=== PATIENT | female | born 1955 | race Caucasian/White ===

== ENCOUNTER 2019-03-27 09:06 | Inpatient (IN) | payer BC ==
--- NOTE | 2019-03-27 11:04 | ED ---
Complex/Multi-Sys Presentation - HPI Summary HPI Summary: This pt is a 63 y/o female, accompanied by , with hx of DM presenting to [facility] c/o cough and SOB for the past 1 week and high glucose levels. Pt reports she has been having SOB, labored breathing, unable to take a deep breath. She notes SOB is at all times and it is not worse when lying down. Per , even when pt is sleeping her breathing is labored. Pt describes a nonproductive cough, nonbloody. Additionally pt notes she has had loss of appetite. Per , many times even after eating small amounts of food pt c/o of being too full. Pt reports hematuria 3 days ago and 2 days ago described as blood tinged, but none since then. Also she notes she diarrhea during the beginning of the week last week but none since then. Pt endorses diaphoresis but states " I sweat a lot all the time." Denies fever, chills, chest pain/pressure/tightness/ myalgia, dysuria. Denies erythema of eyes, sore throat, nausea, vomiting, abd pain, edema, rash. Pt reports she has hx of DM and is on pills but has not taken her medications for almost 1 week because she had nausea. This morning her sugar was 260. Pt reports losing weight recently but she states she has been trying to and has been going to the gym. She states she recently stopped taking Tylenol with codeine (which she had been taking for over 5 years for headache and back pain, and painful wound on left leg). She can't take naproxen or ibuprofen due to her kidney and high potassium problems. PMHx includes DM, Polycythemia vera, HTN. Pt follows up with Dr. Griggs and is on hydroxyurea. Pt states Dr. Castellanos discontinued hydroxyurea temporarily until her wound on left leg can heal. Pt has been off hydroxyurea for 2 weeks now. Pt is a former smoker. - History Of Current Complaint Chief Complaint: EDGeneral Time Seen by Provider: 03/27/19 10:43 Hx Obtained From: Patient Onset/Duration: Lasting Days, Still Present Timing: Days Severity Currently: Moderate Aggravating Factor(s): nothing Alleviating Factor(s): nothing Associated Signs And Symptoms: Positive: SOB, Cough. Negative: Chest Pain, Nausea, Vomiting, Fever - Allergies/Home Medications Allergies/Adverse Reactions: Allergies Allergy/AdvReac Type Severity Reaction Status Date / Time Sulfa (Sulfonamide Allergy Rash And Verified 03/27/19 09:15 Antibiotics) Itching Home Medications: Home Medications Acetaminophen with Codeine [Acetaminophen-Cod #3 Tablet] 1 - 2 tab PO .Q4-6H PRN 03/27/19 [History Confirmed 03/27/19] Desipramine TAB* [Norpramin TAB*] 50 mg PO BEDTIME 03/27/19 [History Confirmed 03/27/19] Milk Thistle Seed Extract [Milk Thistle] 140 mg PO DAILY 03/27/19 [History Confirmed 03/27/19] Mupirocin 2% OINT* [Bactroban 2 % Oint*] 1 applic TOPICAL TID 03/27/19 [History Confirmed 03/27/19] Pioglitazone HCl 45 mg PO DAILY 03/27/19 [History Confirmed 03/27/19] glipiZIDE TAB* [Glucotrol TAB*] 10 mg PO BID 03/27/19 [History Confirmed ] PMH/Surg Hx/FS Hx/Imm Hx Endocrine/Hematology History: Reports: Hx Bone Marrow Disease - Polycythemia Vera, Hx Diabetes - po meds, Hx Anemia - on iron Denies: Hx Thyroid Disease Cardiovascular History: Reports: Hx Hypertension - ON MEDS Denies: Hx Angina, Hx Coronary Artery Disease, Hx Hypercholesterolemia, Hx Pacemaker/ICD, Hx Valvular Heart Disease Comment Only: Hx Myocardial Infarction - ? 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 Denies: Hx Ulcer History: Denies: Hx Renal Disease Musculoskeletal History: Reports: Hx Arthritis - back and hands Denies: Hx Scoliosis Sensory History: Reports: Hx Contacts or Glasses - glasses Denies: Hx Hearing Aid Opthamlomology History: Reports: Hx Contacts or Glasses - glasses Neurological History: Reports: Hx Nerve Disease - spine, Other Neuro Impairments /Disorders - fx skull at 2 yrs of age Denies: Hx Headaches Psychiatric History: Reports: Hx Depression - on med Denies: Hx Panic Disorder - Cancer History Hx Chemotherapy: No Hx Radiation Therapy: No - Surgical History Surgical History: Yes Surgery Procedure, Year, and Place: Tonsilectomy. tubal ligation. anterior cervical discectomy w/ fusion. Carpal tunnel (Right). LSP - DISCECTOMY 02/02 Hx Anesthesia Reactions: No Infectious Disease History: No Infectious Disease History: Denies: Hx Clostridium Difficile, Hx Hepatitis, Hx Human Immunodeficiency Virus (HIV), Hx of Known/Suspected MRSA, Hx Shingles, Hx Tuberculosis, Hx Known/ Suspected VRE, Hx Known/Suspected VRSA, History Other Infectious Disease, Traveled Outside the [place] in Last 30 Days - Family History Known Family History: Positive: Hypertension Family History: Lupus. Rheumatoid arthritis. - Social History Alcohol Use: None Substance Use Type: Reports: None Smoking Status (MU): Former Smoker Type: Cigarettes Amount Used/How Often: smoked for 12-13 years 1ppd Have You Smoked in the Last Year: No Review of Systems Constitutional: Other - POSITIVE: decreased appetite Positive: Skin Diaphoresis. Negative: Fever, Chills Negative: Erythema Negative: Sore Throat Negative: Chest Pain Positive: Shortness Of Breath, Cough Negative: Abdominal Pain, Vomiting, Nausea Negative: dysuria, hematuria Negative: Myalgia, Edema Negative: Rash Neurological: Other - NEGATIVE: dizziness All Other Systems Reviewed And Are Negative: Yes Physical Exam - Summary Physical Exam Summary: Constitutional: Well-developed, Well-nourished, Alert. (-) Distressed Skin: Warm, Dry. Quarter size wound on the left lateral lower leg that appears to be well healing, no drainage, no erythema, no induration. HENT: Normocephalic; Atraumatic Eyes: Conjunctiva normal Neck: Musculoskeletal ROM normal neck. (-) JVD, (-) Stridor, (-) Tracheal deviation Cardio: Rhythm regular, rate normal, Heart sounds normal; Intact distal pulses; The pedal pulses are 2+ and symmetric. Radial pulses are 2+ and symmetric. (-) Murmur Pulmonary/Chest wall: Effort normal. (-) Respiratory distress, (-) Wheezes, (-) Rales. Patient coughs a few times during the exam. Abd: Soft, (-) tenderness, (-) Distension, (-) Guarding, (-) Rebound Musculoskeletal: (-) Edema Lymph: (-) Cervical adenopathy Neuro: Alert, Oriented x3 Psych: Mood and affect Normal Triage Information Reviewed: Yes Vital Signs On Initial Exam: Initial Vitals Temp Pulse Resp BP Pulse Ox 98.3 F 114 20 151/74 94 03/27/19 09:11 03/27/19 09:11 03/27/19 09:11 03/27/19 09:11 03/27/19 09:11 Vital Signs Reviewed: Yes Procedures - Sedation Patient Received Moderate/Deep Sedation with Procedure: No Diagnostics - Vital Signs Vital Signs Temp Pulse Resp BP Pulse Ox 03/27/19 09:11 98.3 F 114 20 151/74 94 - Laboratory Lab Results: Lab Results 03/27/19 Range/Units 10:50 Influenza A (Rapid) Pending Influenza B (Rapid) Pending Result Diagrams: 03/27/19 10:55 03/27/19 10:55 Lab Statement: Any lab studies that have been ordered have been reviewed, and results considered in the medical decision making process. - Radiology chest XR Radiology Interpretation Completed By: Radiologist Summary of Radiographic Findings: IMPRESSION: Small bilateral pleural effusions. Dr. Love has reviewed this report. - CT Chest CTA CT Interpretation Completed By: Radiologist Summary of CT Findings: IMPRESSION: 1. No pulmonary arterial filling defect to suggest pulmonary embolism. 2. The pulmonary artery is enlarged compared to the aorta suggestive of pulmonary hypertension. 3. There is diffuse airspace disease bilaterally. 4. Small bilateral pleural effusions. 5. Hepatosplenomegaly. Dr. Love has reviewed this report. Re-Evaluation - Re-Evaluation First Eval Re-Evaluation Time: 13:28 Change: Unchanged Comment: We will ambualte patient in the ED. Heart rate is 110 bpm. Patient has not really had a change. Patient is saturating at 91% on room air. Second Eval Re-Evaluation Time: 14:00 Change: Worse Comment: Per ED nurse, Rayray, pt was ambulated in the ED and she desatted to 86% on room air. Complex Multi-Symp Course/Dx Assessment/Plan: Pt is a 63 y/o female, accompanied by , with hx of DM presenting to [facility] c/o cough and SOB for the past 1 week and high glucose levels. Pt reports she has been having SOB, labored breathing, unable to take a deep breath. She notes SOB is at all times and it is not worse when lying down. Per , even when pt is sleeping her breathing is labored. Pt describes a nonproductive cough, nonbloody. Additionally pt notes she has had loss of appetite. Per , many times even after eating small amounts of food pt c/ o of being too full. Pt reports hematuria 3 days ago and 2 days ago described as blood tinged, but none since then. PMHx includes DM, Polycythemia vera, HTN. Pt follows up with Dr. Griggs and is on hydroxyurea. Pt states Emanuel discontinued hydroxyurea temporarily until her wound on left leg can heal. Pt has been off hydroxyurea for 2 weeks now. DDx includes cardiac malignancy vs AL vs PE vs pneumonia vs bronchitis vs polycythemia vera. Labs remarkable for WBC 20.7, platelet count of 524, absolute neutrophils of 19.4, INR is 1.39, BUN of 1.06, AST of 7, ALT of 5. Influenza A and B are both negative. Chest XR shows Small bilateral pleural effusions. Chest CTA reveals 1. No pulmonary arterial filling defect to suggest pulmonary embolism. 2. The pulmonary artery is enlarged compared to the aorta suggestive of pulmonary hypertension. 3. There is diffuse airspace disease bilaterally. 4. Small bilateral pleural effusions. 5. Hepatosplenomegaly. In the ED course the pt received azithromycin , rocephin. Patient was ambulated in the ED she desats from 91% (at rest) to 86 % on room air. Discussed the case with Dr. Kenney, hospitalist, who accepted the pt for admission. - Diagnoses Provider Diagnoses: Hypoxemia, Bilateral pleural effusion - Physician Notifications Discussed Care Of Patient With: aJleesa Kenney - hospitalist Time Discussed With Above Provider: 14:31 Instructed by Provider To: Admit As Inpatient - Critical Care Time Critical Care Time: 30-74 min - 35 minutes Discharge ED - Sign-Out/Discharge Documenting (check all that apply): Patient Departure - Admit to [facility] - Discharge Plan Condition: Stable Disposition: ADMITTED TO [facility] Referrals: Andrés LI,Simin Kramer [Primary Care Provider] - - Attestation Statements Document Initiated by Scribe: Yes Documenting Scribe: Pamela Hammer Provider For Whom Scribe is Documenting (Include Credential): Gil Love MD Scribe Attestation: Pamela Marin, scribed for Gil Love MD on 03/27/19 at 1536. Status of Scribe Document: Ready
[2019-03-27 11:11] LABS: Hematocrit 41 % (35-47); Hemoglobin 13.2 g/dL (12.0-16.0); Mean Corpuscular HGB Conc 32 g/dL (31-36); Mean Corpuscular Hemoglobin 33 pg (27-31); Mean Corpuscular Volume 103 fL (80-97); Mean Platelet Volume 10.6 fL (7.4-10.4); Platelet Count 524 10^3/uL (150-450); Red Blood Count 3.96 10^6 /uL (3.70-4.87); Red Cell Distribution Width 18 % (10-15); White Blood Count 20.7 10^3/uL (3.5-10.8)
[2019-03-27 11:14] LABS: ABS Basophils 0.2 10^3/ul (0-0.2); ABS Lymphocytes 0.5 10^3/ul (1.0-4.8); ABS Monocytes 0.6 10^3/ul (0-0.8); ABS Neutrophils 19.4 10^3/ul (1.5-7.7); Eosinophil % 0.2 %; Lymphocyte % 2.5 %; Nucleated Red Blood Cells % 0.2
[2019-03-27 11:14] LABS: Influenza A Molecular NEGATIVE (Negative); Influenza B Molecular NEGATIVE (Negative)
[2019-03-27 11:22] LABS: INR 1.39 (0.82-1.09)
[2019-03-27 11:27] LABS: Albumin 3.3 g/dL (3.2-5.2); Albumin/Globulin Ratio 1.2 (1-3); Calcium 8.7 mg/dL (8.6-10.3); EGFR African American 63.1 (>60); EGFR Non-African American 52.2 (>60); Globulin 2.8 g/dL (2-4); Potassium 3.7 mmol/L (3.5-5.0); Total Bilirubin 0.8 mg/dL (0.2-1.0); Total Protein 6.1 g/dL (6.4-8.9); Troponin I 0.01 ng/mL (<0.03)
[2019-03-27] MEDS ORDERED: Iodixanol* (CONTRAST) 320 MG/ML 100 ML SDV IV ONE (13:52)
[2019-03-27] MEDS ORDERED: Azithromycin 500 mg/250 ml NS 500 MG/250 ML BAG IVPB ONE (14:38)
[2019-03-27] MEDS ORDERED: cefTRIAXone(*) 1 GM in NS 0.9% 50 ML* 50 ML IVPB ONE (14:38)
[2019-03-27 15:14] LABS: C Reactive Protein 117.43 mg/L (<8.01)
[2019-03-27] MEDS ORDERED: Acetaminophen TAB* 325 MG PO PRN (15:16)
[2019-03-27] MEDS ORDERED: Albuterol/Ipratropium NEB.SOL* Albuterol 2.5 MG/Ipratropium 0.5 MG 3 ML INH PRN (15:16)
[2019-03-27] MEDS ORDERED: Dextrose 50% VIAL 50 ml IV PUSH PRN (15:21)
[2019-03-27] MEDS ORDERED: NS 0.9% 1000 ML** 1,000 ML IV SCH (15:30)
--- NOTE | 2019-03-27 17:20 | HP ---
CC: GUILLERMO Lebron; Dr. Griggs; Dr. Banuelos * HISTORY AND PHYSICAL: DATE OF ADMISSION: 03/27/19 PRIMARY CARE PROVIDER: GUILLERMO Lebron CHIEF COMPLAINT: Shortness of breath and cough. HISTORY OF PRESENT ILLNESS: Seble Diaz is a 63-year-old female with history of polycythemia vera as well as for the past 5 months development of left leg wound, who presented to the hospital complaining of shortness of breath and cough. The patient stated that she had been on hydroxyurea up until approximately 2 weeks ago when it was stopped by Dr. Castellanos to allow her left leg wound to heal. She developed left leg wound when she hit her leg on the fridge several months ago in the summer. She had a biopsy that proved to be benign. The wound started healing, but for the past week, the patient noted that she has been having more shortness of breath and dry cough. She also felt no appetite and generalized malaise. The patient presented to the ED and she was noted to have saturation of 91% while sitting up on room air. Her CT of the chest showed generalized reticular infiltrates. She is going to be admitted with a diagnosis of sepsis and pneumonia. PAST MEDICAL HISTORY: 1. Diabetes type 2. 2. Polycythemia vera, under the care of Dr. Griggs. 3. History of anemia. 4. Hypertension. 5. Gastroesophageal reflux disease. 6. Depression. 7. Hypothyroidism. 8. Tonsillectomy. 9. Carpal tunnel release. 10. Tubal ligation. 11. History of Raynaud's. 12. History of lumbar diskectomy in 2017. 13. History of PVCs. 14. History of abnormal cardiac stress test in 2017, followed by cardiac catheterization that proved to be negative for significant coronary artery disease in 2017, under the care of Dr. Banuelos. HOME MEDICATIONS: Include: 1. Pioglitazone 45 mg daily. 2. Omeprazole 20 mg b.i.d. 3. Bactroban 2% one application 3 times a day. 4. Milk thistle 140 mg daily. 5. Metformin 1000 mg b.i.d. 6. Lisinopril 5 mg daily. 7. Levothyroxine 75 mcg daily. 8. Hydroxyurea 1500 mg daily. 9. Glipizide 10 mg b.i.d. 10. Diltiazem (Cartia XT) 300 mg daily. 11. Furosemide 20 mg daily. 12. Desipramine 50 mg at bedtime. 13. Aspirin 81 mg daily. 14. Acetaminophen with codeine that the patient stopped approximately a month ago and she used to use it for headaches and joint pains. ALLERGIES: SULFA. FAMILY HISTORY: Positive for father with history of diabetes, who of heart disease. Mother with history of uterine cancer and thyroid disease, who secondary to heart disease. 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 She has history of 12- pack-year smoking and she quit in 1984. She denies any tobacco, alcohol , or drug use. Her surrogate decision maker is her , his first name is Jet. REVIEW OF SYSTEMS: Please see history of present illness. The patient stated that she has had problems with dyspnea on exercise for "quite some time now." She really does not remember when she was in "good shape." She stated that due to her Raynaud's, she has had problems with leg wounds in the past. She had leg wound on the right lower extremity that improved, but the one on the left lower extremity had been present for the past 6 months. She denies any fevers. She admits to general loss of appetite for the past several days. No fevers. She noted shortness of breath with exertion and nonproductive cough. She is not aware of any sick contacts. All the remaining 12 systems were reviewed with the patient and were otherwise negative. PHYSICAL EXAMINATION GENERAL: The patient is a very pleasant 63-year-old female, who is in no acute distress. Alert, awake, and oriented x3. VITAL SIGNS: Blood pressure of 137/73, heart rate of 101 and regular, respiratory rate 28, oxygen saturation 93% on 2 L of oxygen via nasal cannula, temperature of 98.3. HEENT: Head: Atraumatic, normocephalic. Eyes: Pupils are equal, reactive to light and accommodation. Oropharynx is clear. Mucosa moist. NECK: Supple. No JVD. No bruits bilaterally. RESPIRATORY: Fine crackles at bilateral bases, otherwise clear. CARDIOVASCULAR: Regular rate and rhythm. Tachycardia. No murmur. ABDOMEN: Soft, nontender. Bowel sounds are present in all 4 quadrants. EXTREMITIES: There is trace bilateral pedal edema. Pulses are +2 bilaterally. There is no clubbing or cyanosis. The patient has dry skin on the bottoms of bilateral soles. Her leg wound on the left side of her distal lower extremity approximately 10 cm above her lateral malleolus is approximately 1 to 2 cm in diameter. It is shallow and approximately 2 mm, appears to be healing, crater- like appearing, but healing with no discharge. There are no other lesions noted. NEUROLOGIC: Speech clear. Cranial nerves II through XII grossly intact. Motor strength is 5/5 bilaterally. DIAGNOSTIC STUDIES/LAB DATA: Laboratory data showed influenza testing is negative. White blood cell count 20.7, hemoglobin of 13.2, hematocrit of 41, MCV of 103, and platelets of 524. The patient's band neutrophils were 8%. INR was 1.39. Sodium was 133, potassium 3.7, chloride 100, carbon dioxide 22, BUN 18, creatinine 1.06. Liver function tests showed AST of 7, ALT 5, alkaline phosphatase of 114 which is chronic. C-reactive protein of 117. Lactic acid 0.9. CT angiogram of the patient's chest was rather impressive showing no evidence of PE, but diffuse airspace disease bilaterally with pattern of ground-glass opacification and dependent atelectasis of the lung bases bilaterally. The pulmonary artery is enlarged compared to the aorta suggestive of pulmonary hypertension. There was also hepatosplenomegaly noted. There were small bilateral pleural effusions. ASSESSMENT AND PLAN: 1. The patient is septic due to likely pneumonia. Unfortunately, the CT lung changes noted appeared to be more chronic and I suspect that the acute infection occurred on top of some chronic lung changes. The patient's reticular opacities surround almost the entire bilateral lung [place]. At this point, the patient is going to be continued on oxygen supplementation. Apparently, she desatted to 88% when she was walking. I will continue the patient on ceftriaxone and azithromycin. It is also possible that the patient has a viral infection. Blood cultures were obtained. I will obtain urine antigens for legionella and Strep pneumo. Due to the extension of the patient' s lung disease, I will ask Dr. Fried to see the patient in consultation in the morning. 2. For the patient's diabetes, the patient's oral medications are going to be stopped. The patient is going to be placed on insulin sliding scale. 3. The patient is slightly hyponatremic and appears to be dehydrated. We will place the patient on intravenous fluids and her Lasix is going to be held for a day. 4. For hypothyroidism, her Synthroid is going to be continued. 5. For her left leg wound, we will continue the Bactroban cream 3 times a day. The wound appears to be healing well. 6. In regards to the patient's polycythemia, at this point I will discuss it with the oncology service in the morning if the patient will be restarted on hydroxyurea. 7. For DVT prophylaxis, the patient is going to be placed on heparin subcutaneously. 8. The patient's code status is full and her surrogate is her . TIME SPENT: Approximately 65 minutes was spent on admission of this patient, more than half that time was spent [id number] with the patient during the interview and history and physical taking. [id number]/CPS #: [id number] MTDD
[2019-03-27] MEDS: Insulin LISPRO* 1 UNITS UNIT SUBCUT SCH ×2 (18:02→22:41)
[2019-03-27 18:18] LABS: Urine Appearance Cloudy; Urine Bilirubin Negative (Negative); Urine Blood 1+ (Negative); Urine Color Yellow; Urine Glucose Negative (Negative); Urine Ketones Negative (Negative); Urine Nitrite Negative (Negative); Urine Protein 3+(>=500 mg/dL) (Negative); Urine Specific Gravity 1.028 (1.010-1.030); Urine Urobilinogen Negative (Negative)
[2019-03-27 18:32] LABS: Urine Bacteria Absent (Absent); Urine Red Blood Cell 2+(6-10/hpf) (Absent); Urine Squamous Epithelial Cell Present (Absent); Urine White Blood Cell 1+(6-10/hpf) (Absent)
[2019-03-27] MEDS: Pantoprazole TAB * 40 MG TAB PO SCH (22:38)
[2019-03-27] MEDS: Desipramine TAB* 50 MG PO SCH (22:38)
[2019-03-27] MEDS: Heparin VIAL(*) 5000 UNITS/ML VIAL (FIVE THOUSAND) SUBCUT SCH (22:39)
[2019-03-27] MEDS: Mupirocin 2% OINT* TUBE TOPICAL SCH (22:43)
[2019-03-28] MEDS ORDERED: Ibuprofen TAB* 600 MG PO ONE (05:10)
[2019-03-28] MEDS: Heparin VIAL(*) 5000 UNITS/ML VIAL (FIVE THOUSAND) SUBCUT SCH ×3 (06:05→20:31)
[2019-03-28] MEDS: Levothyroxine TAB* 75 MCG TAB PO SCH (06:05)
[2019-03-28] MEDS: Insulin LISPRO* 1 UNITS UNIT SUBCUT SCH ×4 (08:31→20:31)
[2019-03-28] MEDS: Lisinopril TAB* 5 MG PO SCH (08:32)
[2019-03-28] MEDS: Pantoprazole TAB * 40 MG TAB PO SCH ×2 (08:32→20:32)
[2019-03-28] MEDS: Aspirin EC TAB* 81 MG TAB.EC PO SCH (08:32)
[2019-03-28] MEDS: Diltiazem CD CAP* 180 MG PO SCH (08:32)
[2019-03-28] MEDS: Diltiazem CD CAP* 120 MG PO SCH (08:32)
[2019-03-28] MEDS: Mupirocin 2% OINT* TUBE TOPICAL SCH ×3 (08:33→20:25)
--- NOTE | 2019-03-28 08:59 | PN ---
Subjective Date of Service: 03/28/19 Interval History: Pt feels much better, still has occasional dry cough, no fevers. Objective Active Medications: Acetaminophen (Tylenol Tab*) 650 mg PO Q4H PRN PRN Reason: PAIN-MILD/TEMP >/= 100.4 Last Admin: 03/27/19 23:48 Dose: 650 mg Albuterol/Ipratropium (Duoneb (Albuterol 2.5 Mg/Ipratropium 0.5 Mg)) 1 neb INH [id number] AWAKE PRN PRN Reason: sob/wheexing Aspirin (Aspirin Ec Tab*) 81 mg PO QAM [facility] Last Admin: 03/28/19 08:32 Dose: 81 mg Desipramine HCl (Norpramin Tab*) 50 mg PO BEDTIME [facility] Last Admin: 03/27/19 22:38 Dose: 50 mg Dextrose (Dextrose 50% Vial 50 Ml*) 25 ml IV PUSH .FOR FS < 60 - SS PRN PRN Reason: FS < 60 Diltiazem HCl (Cardizem Cd Cap*) 180 mg PO DAILY [facility] Last Admin: 03/28/19 08:32 Dose: 180 mg Diltiazem HCl (Cardizem Cd Cap*) 120 mg PO DAILY [facility] Last Admin: 03/28/19 08:32 Dose: 120 mg Heparin Sodium (Porcine) (Heparin Vial(*)) 5,000 units SUBCUT Q8HR [facility] Last Admin: 03/28/19 06:05 Dose: 5,000 units Azithromycin (Zithromax 500 Mg/250 Ml) 500 mg in 250 mls @ 250 mls/hr IVPB Q24H [facility] Ceftriaxone Sodium 1 gm/ (Sodium Chloride) 50 mls @ 100 mls/hr IVPB Q24H [facility] Insulin Human Lispro (Humalog*) 0 units SUBCUT ACHS [facility]; Protocol Last Admin: 03/28/19 08:31 Dose: 2 units Levothyroxine Sodium (Synthroid Tab*) 75 mcg PO 0600 [facility] Last Admin: 03/28/19 06:05 Dose: 75 mcg Lisinopril (Prinivil Tab*) 5 mg PO DAILY [facility] Last Admin: 03/28/19 08:32 Dose: 5 mg Mupirocin (Bactroban 2 % Oint*) 1 applic TOPICAL TID [facility] Last Admin: 03/28/19 08:33 Dose: Not Given Pantoprazole Sodium (Protonix Tab*) 40 mg PO BID [facility] Last Admin: 03/28/19 08:32 Dose: 40 mg Vital Signs - 8 hr 03/28/19 03/28/19 03/28/19 02:59 07:30 07:50 Temperature 97.5 F 97.3 F Pulse Rate 97 101 Respiratory 19 18 12 Rate Blood Pressure 125/55 137/62 (mmHg) O2 Sat by Pulse 95 97 Oximetry 03/28/19 08:00 Temperature Pulse Rate Respiratory Rate Blood Pressure (mmHg) O2 Sat by Pulse 97 Oximetry Oxygen Devices in Use Now: Nasal Cannula Appearance: 63 yo F in NAD, AAOx3 Eyes: No Scleral Icterus, PERRLA Ears/Nose/Mouth/Throat: NL Teeth, Lips, Gums, Mucous Membranes Moist Neck: NL Appearance and Movements; NL JVP, Trachea Midline Respiratory: Symmetrical Chest Expansion and Respiratory Effort, - - faint bibasiliar crackles Cardiovascular: NL Sounds; No Murmurs; No JVD, RRR Abdominal: NL Sounds; No Tenderness; No Distention Lymphatic: No Cervical Adenopathy Extremities: No Edema, No Clubbing, Cyanosis Skin: - - small ulcer 10 cm above left lateral malleolus at 2 cm in diam-not infected, no discharge, shallow Neurological: Alert and Oriented x 3, NL Muscle Strength and Tone Result Diagrams: 03/27/19 10:55 03/27/19 10:55 Additional Lab and Data: Lab Results 03/27/19 Range/Units 10:50 Influenza A (Rapid) Pending Influenza B (Rapid) Pending Assess/Plan/Problems-Billing Assessment: 63 yo F with h/o PV(on hydroxyurea -held 2 weeks ago),Raynaud's, HTN , DM2, chronic let leg ulcer who presents with SOB, found to be hypoxemic, with PNA and diffuse interstitial lung changes noted on CT - Patient Problems (1) Pneumonia Comment: causing acute hypoxemic resp failure(pt's 02 sats were down to 83% on RA when walking on 03/27/19) Cont Ceftriaxone/Azithro (2) Interstitial lung disease Comment: CT suggestive of a chronic lung problem appreciate DR. Fried's consult will get echo to eval pulm HTN Noted proteinuria on UA(will obtain 24H urine collection for protein), ANCA and anti glomerular basement membrane antibodies ordered (3) DM2 (diabetes mellitus, type 2) Comment: cont iSS (4) Polycythemia vera Comment: Off hydroxyurea x 2 weeks(stopped by DR. Castellanos to allow healing of left leg wound) Asked DR. Westbrook to see pt in consult (5) CKD (chronic kidney disease) stage 3, GFR 30-59 ml/min Comment: with proteinuria creat at baseline Urine collection pending (6) HTN (hypertension) Comment: cont Cartia, lisinopril and restarting furosemide BP controlled (7) DVT prophylaxis Comment: HSQ Status and Disposition: inpatient
[2019-03-28] MEDS ORDERED: Diltiazem CD CAP* 240 MG PO SCH (09:00)
--- NOTE | 2019-03-28 09:38 | CONS ---
PULMONARY CONSULTATION REPORT: DATE OF CONSULT: 03/28/19 CONSULTATION REQUESTED BY: Dr. Jaleesa Kenney. REASON FOR CONSULT: Evaluation of abnormal CT chest. HISTORY OF PRESENT ILLNESS: The patient is a 63-year-old female with history of polycythemia vera, history of left leg wound who presented for evaluation of shortness of breath and cough. The patient has been on hydroxyurea up until 2 weeks ago, which was stopped to help the left leg wound to heal. The wound started healing in the past week. The patient started having worsening shortness of breath and dry cough over the past few days. The patient also reports fatigue and generalized malaise. The patient denies fevers or chills. The patient denies chest pain, palpitations, dizziness, or loss of weight. The patient denies wheeze. The patient denies similar complaints in the past. The patient denies sick contacts and recent travel. The patient does not report any other family members with the same complaint. The patient was noted to be having hypoxemia with O2 sat 91% on room air on presentation. The patient had CTA for evaluation of possible pulmonary embolism. I personally reviewed CT of the chest with the patient today. The patient with evidence of diffuse ground- glass opacities bilaterally. The patient also with evidence of pulmonary hypertension. The patient with evidence of some dense consolidation at the bases bilaterally and small bilateral pleural effusions. The patient also with evidence of hepatosplenomegaly. The patient reports feeling slightly better this morning. She is not using accessory muscles of respiration. The patient noted to have O2 sat around 97% on 2 L this morning. The patient was initiated on neb treatments. She was also started empirically on ceftriaxone and Zithromax. PAST MEDICAL HISTORY: 1. Polycythemia vera. 2. Type 2 diabetes. 3. Hypertension. 4. GERD. 5. Depression. 6. Hypothyroidism. 7. Tonsillectomy. 8. Carpal tunnel release. 9. Tubal ligation. 10. History of Raynaud's. 11. History of lumbar diskectomy. 12. History of PVCs. 13. History of abnormal stress test in 2013 followed by catheterization, negative coronaries. MEDICATIONS: 1. Pioglitazone. 2. Omeprazole. 3. Bactroban. 4. Milk thistle. 5. Metformin. 6. Lisinopril. 7. Levothyroxine. 8. Hydroxyurea. 9. Glipizide. 10. Diltiazem. 11. Furosemide. 12. Desipramine. 13. Aspirin. ALLERGIES: SULFA. FAMILY HISTORY: Father with diabetes. Mother with uterine cancer and thyroid disease. 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 Had [id number] smoking history, quit in 1984. No alcohol or drug abuse. REVIEW OF SYSTEMS: All 14 systems reviewed as per HPI. PHYSICAL EXAM: The patient is in bed, in no apparent distress. Vital Signs: Temperature 97.5, pulse 97 beats per minute, respiratory rate 18 per minute, O2 sat 95% on 2 L, blood pressure 125/55. HEENT: Pupils equal and reactive to light. Mucous membranes moist. Lungs: Good air entry bilaterally and some scattered crackles present and no wheezes. Cardiovascular: S1, S2 present, regular. Abdomen: Soft, nontender, nondistended. Bowel sounds present. Extremities: Normal range of motion. Skin: No rash or bruises. Neuro: Alert , awake, and oriented x3. No focal deficits. DIAGNOSTIC STUDIES/LAB DATA: Laboratory Exam: WBC 20.7, hemoglobin 13.2, hematocrit 41, platelet count 524. Sodium 133, potassium 3.7, chloride 100, bicarb 22, BUN 18, creatinine 1.06. Influenza A and B negative. CTA of the chest as described above in HPI. The patient had a CT of the chest in 2002 that did not reveal any abnormalities. IMPRESSION/RECOMMENDATIONS: 63-year-old female with history of polycythemia vera with radiological evidence of pulmonary hypertension, also with thrombocytosis admitted with worsening shortness of breath, found to have diffuse airspace opacities with ground-glass bilaterally. Differentials include atypical pneumonia versus capillary leak syndrome with amyloidosis in the setting of polycythemia vera. The patient with elevated white count, suspect infectious etiology. The patient was started on empirically antibiotics for coverage for community- acquired pneumonia. The patient showed improvement without steroids, interstitial lung disease secondary to infectious etiology less likely. 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 The patient will need a sleep study as an outpatient for evaluation of possible obstructive sleep apneas, etiology of her pulmonary hypertension and polycythemia. She would need further workup hematologically for evaluation of possible amyloidosis. Her creatinine is elevated. CRP is elevated. She also had thrombocytosis. She has a macrocytic picture. UA showed 2+ rbc, 1+ wbc, 1+ blood, and 3+ protein suggestive of possible nephrotic syndrome picture. Her albumin and globulin were within normal limits; however, her serum total protein is low. Thank you for allowing me to participate in the care of your patient. I will follow up with you. [id number] #: [id number] MTDD
--- NOTE | 2019-03-28 12:23 | ECHO ---
*[facility]* [place] [address] Fax #: [phone] Transthoracic Echocardiogram Patient: Seble Diaz : 1955 Study Date: 03/28/2019 Age: 63 Gender: F HR: 107 bpm Height: 65 in /165.1 cm BSA: 1.9 m^2 Weight: 169.6 lb /77.1 kg BMI: 28.3 kg/m^2 *Crime Scene Specialist: * Jocelyne Wolf [facility] *Referring Physician: * Jaleesa Kenney *Reading Physician: * Alex Gautam MD Indications: Pulmonary Hypertension (secondary). History: Risk factors: Former tobacco use. Diabetes mellitus. Conclusions Summary: - Left ventricle: The cavity size is at the lower limits of normal. Wall thickness is mildly to moderately increased. Systolic function is hyperdynamic. The estimated ejection fraction is 65-70%. Wall motion is normal; there are no regional wall motion abnormalities. - Right ventricle: Systolic function is normal. - Mitral valve: There is trace regurgitation. - Aortic valve: There is no evidence of stenosis. - Tricuspid valve: There is trace to mild regurgitation. - Pulmonary arteries: Systolic pressure is mildly increased. The peak pressure during systole by Doppler is 40.7 mm Hg. - Study data: No prior study is available for comparison. Study data: Transthoracic echocardiogram. Procedure: Transthoracic echocardiography was performed. Image quality was good. Complete 2D, spectral Doppler, and color flow Doppler. Location: Bedside. Patient status: Inpatient. Patient room number: 414 02. No prior study is available for comparison. Rhythm: Tachycardia. Findings Left ventricle: The cavity size is at the lower limits of normal. Wall thickness is mildly to moderately increased. Systolic function is hyperdynamic. The estimated ejection fraction is 65-70%. Wall motion is normal; there are no regional wall motion abnormalities. Left ventricular diastolic function parameters are indeterminate. Right ventricle: The cavity size is normal. Systolic function is normal. Left atrium: The atrium is at the upper limits of normal in size. Right atrium: The atrium is normal in size. Mitral valve: The Mitral valve annulus appears calcified. The leaflets are mildly thickened. There is no evidence of stenosis. There is trace regurgitation. Aortic valve: The valve is trileaflet. The leaflets are mildly thickened. There is no evidence of stenosis. There is trace regurgitation. Tricuspid valve: The leaflets are normal thickness. There is no evidence of stenosis. There is trace to mild regurgitation. Pulmonic valve: The leaflets are normal thickness. There is no evidence of stenosis. There is trace regurgitation. Aorta: The aortic root appears normal. The aortic arch appears normal. Pericardium: There is no significant pericardial effusion. Pulmonary arteries: Systolic pressure is mildly increased. Systemic veins: Inferior vena cava: The vessel is dilated. There is (< 50%) respiratory change in the IVC dimension. Measurements Left ventricle Value Ref Aortic valve continued Value Ref RAYNE, LAX 3.8 cm 3.8 - 5.2 LVOT/AV, VTI ratio 0.7 ----- ESD, LAX 2.2 cm 2.2 - 3.5 LEN, VTI 2.20 cm^2 ----- FS, LAX 41 % 27 - 45 LEN, Vmax 2.20 cm^2 ----- PW, ED, LAX (H) 1.3 cm 0.6 - 0.9 E', lat karl, TDI (L) 9.2 cm/sec >=10.0 Mitral valve Value Re f E', med karl, TDI (L) 5.0 cm/sec >=7.0 Mean v, D 1.2 m/sec -- --- E', avg, TDI 7.1 cm/sec --------- VTI leaflet coapt 30.0 cm ----- Mean grad, D 7.0 mm Hg ----- LVOT Value Ref Peak grad, D 18.0 mm Hg ----- Diam, S 2.00 cm --------- Area 3.1 cm^2 --------- Pulmonic valve Value Ref Peak louisa, S 1.4 m/sec --------- Peak v, S 1.04 m/sec ----- VTI, S 27.0 cm --------- Peak grad, S 4.4 mm Hg ----- Peak grad, S 8 mm Hg --------- Mean grad, S 4 mm Hg --------- Tricuspid valve Value Ref TR peak v 2.7 m/sec <=2.8 Ventricular septum Value Ref Peak RV-RA grad, S 30 mm Hg ----- IVS, ED (H) 1.6 cm 0.6 - 0.9 Aortic root Value Ref Right ventricle Value Ref Root diam 3.1 cm <4.1 RAYNE, LAX 3.1 cm --------- RAYNE major ax, A4C (L) 3.7 cm 5.9 - 8.3 Ascending aorta Value Ref Pressure, S 45 mm Hg --------- AAo AP diam, S 3.1 cm ----- Left atrium Value Ref Aortic arch Value Ref SI dim ES, LAX 3.8 cm --------- Arch diam 2.8 cm ----- ML dim, A4C 4.2 cm --------- SI dim, A4C 5.2 cm --------- Decending aorta Value Ref Vol/bsa, ES, 2-p 33 ml/m^2 16 - 34 Frandy peak louisa 0.79 m/sec ----- Right atrium Value Ref Pulmonary artery Value Ref SI dim, ES 5.0 cm 3.4 - 5.3 Pressure, S 40.7 mm Hg ----- ML dim, ES, A4C 4.0 cm 2.6 - 4.4 Estimated RAP 15 mm Hg --------- Inferior vena cava Value Ref Diam 2.3 cm ----- Aortic valve Value Ref Karl diam, ED 1.8 cm --------- Pulmonary veins Value Ref Karl diam/bsa, ED 0.9 cm/m^2 --------- Peak v, S 0.64 m/sec ----- Peak v, S 2 m/sec --------- Peak v, D 0.33 m/sec ----- VTI, S 39.0 cm --------- Peak S/D ratio 1.94 ----- Mean grad, S 9.0 mm Hg --------- A rev duration 121 ms ----- Peak grad, S 16.0 mm Hg --------- Legend: (L) and (H) wolfgang values outside specified reference range. Prepared and electronically signed by Alex Gautam MD 03/28/2019 12:23
[2019-03-28 12:28] LABS: Hematocrit 37 % (35-47); Hemoglobin 12.2 g/dL (12.0-16.0); Mean Corpuscular HGB Conc 33 g/dL (31-36); Mean Corpuscular Hemoglobin 34 pg (27-31); Mean Corpuscular Volume 103 fL (80-97); Mean Platelet Volume 9.8 fL (7.4-10.4); Platelet Count 496 10^3/uL (150-450); Red Blood Count 3.64 10^6 /uL (3.70-4.87); Red Cell Distribution Width 18 % (10-15)
[2019-03-28 13:02] LABS: BUN/Creatinine Ratio 16.8 (8-20); Calcium 8.2 mg/dL (8.6-10.3); EGFR African American 58.7 (>60); EGFR Non-African American 48.5 (>60); Potassium 3.9 mmol/L (3.5-5.0)
[2019-03-28 13:51] LABS: ABS Lymphocytes 0.7 10^3/ul (1.0-4.8); ABS Monocytes 0.6 10^3/ul (0-0.8); ABS Neutrophils 16.6 10^3/ul (1.5-7.7); Eosinophil % 0.2 %; Lymphocyte % 3.9 %; Nucleated Red Blood Cells % 0.1
[2019-03-28] MEDS ORDERED: cefTRIAXone(*) 1 GM in NS 0.9% 50 ML* 50 ML IVPB SCH (14:00)
[2019-03-28] MEDS ORDERED: Azithromycin 500 mg/250 ml NS 500 MG/250 ML BAG IVPB SCH (16:00)
[2019-03-28] MEDS: Desipramine TAB* 50 MG PO SCH (20:32)
--- NOTE | 2019-03-29 01:27 | CONS ---
MEDICAL ONCOLOGY/HEMATOLOGY CONSULTATION NOTE: DATE OF CONSULT: 03/28/19 REASON FOR CONSULT: The patient is known to our service with longstanding polycythemia vera and now with new lung findings. HISTORY OF PRESENT ILLNESS: Seble Diaz is a 63-year-old female, who has had polycythemia since 2006. At that time, she had presented with elevations of all 3 cell lines. H and H were approximately 54/18, platelet count of over 600, 000, and white count of about 14,000. JAK2 was tested and was positive. She was initially treated with phlebotomies and then was placed on hydroxyurea and has remained on this ever since. Counts have been well controlled. She is known to have splenomegaly dating back to at least 2002 with a spleen of 15 cm at that time and on the most recent imaging still 15 cm. She recently had her Hydrea held due to need to heal ulcers on her lower extremities. She has been followed for this in the wound clinic and Hydrea has been held for approximately last 2 weeks. With holding the Hydrea, the white count has risen from 13,700 at the time of stopping the Hydrea to 20,700. Other cell lines including H and H are normal and platelets are only minimally elevated at 524. She has had very frequent need for phlebotomies over time, most recently at the end of 2017 or early 2018 around the time of hip surgery. Recently over the last 1 to 2 months, the patient has developed early satiety and nausea. This has worsened, although in the last several days, it has been better. She reports developing a cough and shortness of breath 9 days ago, which was a dry cough without any fevers. She did not seek any treatment for it and felt it worsened and she presented to the hospital. Since being started on the antibiotics, on the day of admission, 1 day ago, her breathing has significantly improved. She had been quite hypoxic with O2 saturations in the low 80s. She was going to the gym until [address] scan is personally reviewed and then reviewed subsequently with Radiology and compared to multiple prior imaging studies. This reveals diffuse bilateral airspace disease with some small areas of sparing. It has mostly a ground-glass appearance. There are also some prominent, but not enlarged lymph nodes. Hepatosplenomegaly is noted, which is similar to that seen on multiple previous imaging all the way back to 2002. Unfortunately, no prior imaging is available of the chest. We can briefly add a lumbar spine CT scan. There are only a few images of the very base of the lungs at that time 2 years ago and too few to compare to the current studies, otherwise no CT scan of the chest is available since 2004. PAST MEDICAL AND SURGICAL HISTORY: Diabetes mellitus for approximately 20 years which she reports is well controlled, Raynaud's disease, hypertension, GERD, depression, hypothyroidism, status post tonsillectomy, status post tubal ligation, status post carpal tunnel repair, status post lumbar diskectomy in 2017. MEDICATIONS: At the time of admission include: 1. Pioglitazone 45 mg daily. 2. Omeprazole 20 mg b.i.d. 3. Bactroban topically to legs 3 times per day. 4. Metformin 1000 mg t.i.d. 5. Lisinopril 5 mg daily. 6. Levothyroxine 75 mcg daily. 7. Hydroxyurea 1500 mg daily, but it has been held for the past 2 weeks. 8. Glipizide 10 mg b.i.d. 9. Diltiazem 300 mg daily. 10. Furosemide 20 mg daily. 11. Desipramine 50 mg at h.s. 12. Aspirin 81 mg daily. ALLERGIES: To SULFA. FAMILY HISTORY: No family history of malignancies. Mother with uterine cancer. No other cancers in the family. Does have a sister and a niece both with lupus and sister with other autoimmune issues. SOCIAL HISTORY: The patient is retired. Remote smoking history, quit in 1984. No significant alcohol. REVIEW OF SYSTEMS: Has recently been treated in the wound clinic for an ulceration of the left leg. She had injured the leg in October 2018 and had had a previous ulceration of the leg on the other side several years ago. She reports the wound is better having using Unna boot and also applying silver alginate. Some dyspnea on exertion, which is worse over the past several weeks. Raynaud' s is ongoing. GERD is well controlled. No significant changes in the bowel or bladder habits. Appetite has been decreased for the past several days with early satiety, although now getting better. Denies any fevers, sweats, or chills. Denies any sore throat or mouth sores. Review of systems is otherwise negative except as discussed above. PHYSICAL EXAM: A 63-year-old female, in no acute distress. Vital Signs: Blood pressure 136/63, pulse 108, afebrile, T-max during the hospitalization has been under 100, O2 saturation is 94% on room air. HEENT: PERRL, EOMI. No erythema or exudates. No palpable cervical, supraclavicular, axillary, or inguinal adenopathy. Heart: Regular rate and rhythm without murmurs, rubs, or gallops. Lungs: Occasional crackles at the bases. Abdomen: Soft, nontender without masses or organomegaly. Extremities: No clubbing, cyanosis, or edema. Back: No CVA or spinal tenderness. Does have a small ulcer near the left lateral portion of the ankle. Neurologic Exam: Without focal deficits. LABORATORY STUDIES: With a CBC of 20,700, H and H 41/13.2, platelet count 524, 000 with essentially normal differential and mostly neutrophils. Chemistry study, sodium 133, potassium 3.7, chloride 100, bicarb 22, BUN 18, creatinine 1.06, glucose 296 random. Alk phos mildly elevated at 114. Liver function tests were otherwise normal. C-reactive protein elevated at 117. Lactic acid is unremarkable on admission. Urinalysis with 3+ protein and 1+ blood. IMPRESSION: A 63-year-old female with known underlying polycythemia vera dating back 12 years. It has been well controlled. She has been on Hydrea alone for almost this entire period of time requiring phlebotomies initially and then 2 phlebotomies approximately 2 years ago. Her Hydrea has been held for the past 2 weeks in an attempt to help heal the ulceration on the left lower extremity. She presents now with marked respiratory symptoms and hypoxia. It is not totally clear whether this relates to the underlying abnormalities seen on her CT scan. Given the fact that there has been no imaging of the chest other than a regular chest x- ray a couple of years ago, it is unclear whether the changes on the CT scan are new or chronic. If chronic , they could be related to the hydroxyurea. Hydroxyurea can cause pulmonary fibrosis and other pulmonary issues, although typically starting within for several months to a year of initiation of Hydrea and should not be causing new problems at this time. In that situation, it is possible that she has superimposed community-acquired pneumonia/severe bronchitis and that the lung findings are chronic and unlikely to cause her major issues as she has been well compensated in terms of her pulmonary status for many years. There is evidence for pulmonary hypertension, so this may have some consequences in the long run as well. If these lung findings are acute, it is possible this could represent an atypical pneumonia including possibility of PCP, although there is no reason to consider her significantly immunocompromised. In addition, the possibility of autoimmune disorders leading to significant lung changes should also be considered. She does seem to be significantly improved over the past 24 hours. It is likely she will be discharged to home while the remainder of the workup instituted by Dr. Fried and Dr. Kenney continue. Echocardiogram has been obtained recently, results pending. Dr. Fried did mention in her note the possibility of amyloid given that she has documented polycythemia vera with known JAK2 mutation. There is no reason to suspect amyloid as this is not secondary polycythemia, but primary. [id number]/[facility] #: [id number] MTDD
[2019-03-29] MEDS: Heparin VIAL(*) 5000 UNITS/ML VIAL (FIVE THOUSAND) SUBCUT SCH (05:56)
[2019-03-29] MEDS: Levothyroxine TAB* 75 MCG TAB PO SCH (05:56)
[2019-03-29 06:13] LABS: BUN/Creatinine Ratio 16.8 (8-20); C Reactive Protein 25.59 mg/L (<8.01); EGFR African American 55.3 (>60); EGFR Non-African American 45.7 (>60); Potassium 3.5 mmol/L (3.5-5.0)
[2019-03-29 08:04] VITALS: BP 133/67
[2019-03-29] MEDS: Insulin LISPRO* 1 UNITS UNIT SUBCUT SCH ×2 (08:38→12:31)
[2019-03-29] MEDS: Aspirin EC TAB* 81 MG TAB.EC PO SCH (08:39)
[2019-03-29] MEDS: Diltiazem CD CAP* 120 MG PO SCH (08:39)
[2019-03-29] MEDS: Diltiazem CD CAP* 180 MG PO SCH (08:39)
[2019-03-29] MEDS: Pantoprazole TAB * 40 MG TAB PO SCH (08:39)
[2019-03-29] MEDS: Lisinopril TAB* 5 MG PO SCH (08:39)
[2019-03-29] MEDS: Mupirocin 2% OINT* TUBE TOPICAL SCH (08:41)
[2019-03-29] MEDS ORDERED: Furosemide TAB* 20 MG PO SCH (09:00)
[2019-03-29 09:54] LABS: ABS Eosinophils 0.1 10^3/ul (0-0.6); ABS Lymphocytes 0.6 10^3/ul (1.0-4.8); ABS Monocytes 0.4 10^3/ul (0-0.8); ABS Neutrophils 15.3 10^3/ul (1.5-7.7); Eosinophil % 0.4 %; Hematocrit 37 % (35-47); Hemoglobin 12.5 g/dL (12.0-16.0); Lymphocyte % 3.8 %; Mean Corpuscular HGB Conc 34 g/dL (31-36); Mean Corpuscular Hemoglobin 35 pg (27-31); Mean Corpuscular Volume 102 fL (80-97); Mean Platelet Volume 9.7 fL (7.4-10.4); Nucleated Red Blood Cells % 0.2; Platelet Count 488 10^3/uL (150-450); Red Blood Count 3.62 10^6 /uL (3.70-4.87); Red Cell Distribution Width 18 % (10-15); White Blood Count 16.4 10^3/uL (3.5-10.8)
--- NOTE | 2019-03-29 11:09 | PN ---
Progress Note - Progress Note Date of Service: 03/29/19 SOAP: Subjective: []Mild chronic SOB followed by 1 week marked increased in symptoms. Breathing now much better after starting antibioitics. Saturation 97% on 2 L NC but will drop to 80s walking around on RA. No fever or chills. Planning discharge today. Acetaminophen (Tylenol Tab*) 650 mg PO Q4H PRN PRN Reason: PAIN-MILD/TEMP >/= 100.4 Last Admin: 03/27/19 23:48 Dose: 650 mg Albuterol/Ipratropium (Duoneb (Albuterol 2.5 Mg/Ipratropium 0.5 Mg)) 1 neb INH [id number] AWAKE PRN PRN Reason: sob/wheexing Aspirin (Aspirin Ec Tab*) 81 mg PO QAM [facility] Last Admin: 03/29/19 08:39 Dose: 81 mg Desipramine HCl (Norpramin Tab*) 50 mg PO BEDTIME [facility] Last Admin: 03/28/19 20:32 Dose: 50 mg Dextrose (Dextrose 50% Vial 50 Ml*) 25 ml IV PUSH .FOR FS < 60 - SS PRN PRN Reason: FS < 60 Diltiazem HCl (Cardizem Cd Cap*) 180 mg PO DAILY [facility] Last Admin: 03/29/19 08:39 Dose: 180 mg Diltiazem HCl (Cardizem Cd Cap*) 120 mg PO DAILY [facility] Last Admin: 03/29/19 08:39 Dose: 120 mg Furosemide (Lasix Tab*) 20 mg PO DAILY [facility] Last Admin: 03/29/19 08:39 Dose: 20 mg Heparin Sodium (Porcine) (Heparin Vial(*)) 5,000 units SUBCUT Q8HR [facility] Last Admin: 03/29/19 05:56 Dose: 5,000 units Azithromycin (Zithromax 500 Mg/250 Ml) 500 mg in 250 mls @ 250 mls/hr IVPB Q24H [facility] Last Admin: 03/28/19 15:36 Dose: 250 mls/hr Ceftriaxone Sodium 1 gm/ (Sodium Chloride) 50 mls @ 100 mls/hr IVPB Q24H [facility] Last Admin: 03/28/19 14:38 Dose: 100 mls/hr Insulin Human Lispro (Humalog*) 0 units SUBCUT [facility]; Protocol Last Admin: 03/29/19 08:38 Dose: 2 units Levothyroxine Sodium (Synthroid Tab*) 75 mcg PO 0600 [facility] Last Admin: 03/29/19 05:56 Dose: 75 mcg Lisinopril (Prinivil Tab*) 5 mg PO DAILY [facility] Last Admin: 03/29/19 08:39 Dose: 5 mg Mupirocin (Bactroban 2 % Oint*) 1 applic TOPICAL TID [facility] Last Admin: 03/29/19 08:41 Dose: Not Given Pantoprazole Sodium (Protonix Tab*) 40 mg PO BID [facility] Last Admin: 03/29/19 08:39 Dose: 40 mg Objective: [] Vital Signs Temp Pulse Resp BP Pulse Ox 98.2 F 114 18 133/67 97 03/29/19 07:15 03/29/19 07:15 03/29/19 07:15 03/29/19 07:15 03/29/19 07:15 HEENT: OM moist Dec BS, CTA, no wheezing RRR S1S2 +BS obese, spleen tip to [address] scan reviewed and diffuse BL airspace disease with broad ddx. Plts 488,000, Hgb 12.5 Assessment: []63 year old long standing PV on HU and has been stable, presents SOB and diffuse alveolar process on CT chest. Ddx: Atypical pneumonia, SE HU, other infiltrating pulmonary disease. She has improved on antibiotics. Plan: []1. Ok for d/c today 2. Keep follow up in and will re-check CT chest 3. Stay off HU 4. Re-check iron studies.
--- NOTE | 2019-03-29 12:48 | DS ---
CC: GUILLERMO Lebron; Dr. Griggs; Dr. Westbrook; Dr. Fried; Dr. Castellanos * DISCHARGE SUMMARY: DATE OF ADMISSION: 03/27/19 DATE OF DISCHARGE: 03/29/19 PRIMARY CARE PROVIDER: GUILLERMO Lebron. DISPOSITION AT DISCHARGE: To home. CONDITION AT DISCHARGE: Stable. DISCHARGE DIAGNOSES: 1. Acute bilateral interstitial pneumonia. 2. Acute hypoxemic respiratory failure due to above. 3. Urinalysis significant for protein. The patient is, by the time of discharge, going to have completed a 24-hour urine collection for protein. SECONDARY DIAGNOSES: 1. Polycythemia vera under the care of Dr. Griggs. 2. History of left leg chronic ulcer under the care of Dr. Castellanos. 3. Diabetes type 2. 4. Anemia. 5. Hypertension. 6. Gastroesophageal reflux disease. 7. Depression. 8. Hypothyroidism. 9. Tonsillectomy. 10. Carpal tunnel release. 11. Tubal ligation. 12. Raynaud's. 13. History of lumbar diskectomy. 14. History of PVCs. LABORATORY DATA DURING THE HOSPITAL STAY: Included: On 03/29/19, white blood cell count of 16.4, hemoglobin of 12.5, hematocrit of 37, platelets of 488. On 03/29/19, sodium of 136, potassium 3.5, chloride 103, carbon dioxide 23, BUN 20 , creatinine 1.19. Urinalysis positive for +3 protein, +1 blood, +1 wbc's, +2 rbc's, bacteria absent. Flu test was negative. CT angiogram of the chest obtained at admission. Impression: "No pulmonary artery filling defects to suggest pulmonary embolism. The pulmonary artery is enlarged compared to the aorta suggestive of pulmonary hypertension. There is diffuse airspace disease bilaterally. Small bilateral pleural effusions. Hepatosplenomegaly." Transthoracic echocardiogram obtained on 03/29/19, showed EF of 65% to 70% with PA pressures mildly increased to 40 mmHg. There was trace mitral regurgitation. CONSULTATIONS DURING THE HOSPITAL STAY: Included Dr. Fried from Pulmonology, Dr. Westbrook from Oncology. HOSPITALIZATION COURSE: Seble Diaz is a 63-year-old female with history of polycythemia vera, on hydroxyurea. It was held approximately 2 weeks prior to the current admission by Dr. Castellanos after the patient had a nonhealing ulcer on the left leg. The patient stated that the ulcer developed after she hit the door of the fridge approximately 6 months prior. She had been under the care of Dr. Castellanos and a biopsy of the skin was performed and it was nonconclusive of any malignancy. At that point, Dr. Castellanos decided to hold the patient's hydroxyurea and see if that improves the ulcer. The patient presented to the emergency department with chief complaint of shortness of breath and dry cough that had been bothering her for several days. She was noted to have diffuse bilateral radicular interstitial lung disease/infiltrate. Her WBCs were 20, 000. She was hypoxemic. She was admitted to the hospital. Due to the extensive disease on the CT of the chest, I asked Dr. Fried to see the patient in consultation. At this point, the differential was broad and by Dr. Fried, the patient was to be evaluated for the possibility of amyloidosis. Dr. Fried also recommended transthoracic echocardiogram. We also note that the patient had proteinuria on her urinalysis and 24-hour urine collection for protein was started. ANCA antibodies were also collected as well as workup for the possibility of good postures with antiglomerular basement membrane antibody. All of those 3 studies are still pending at the time of dictation including the antibodies as well as 24-hour urine collection. The patient is to complete the 24-hour urine collection just before her departure today. Dr. Westbrook's outpatient consultation stated that amyloidosis is unlikely and that the hydroxyurea should be held for the time being. At this point, the patient recovered remarkably and in fact she had looked better clinically ever since her admission than her CT of the chest. Her hypoxemia resolved by the time of discharge. She is on room air with sats at 97%. She is going to be discharged home. Recommendation to follow with Dr. Fried in 4 to [address] Griggs who was following up with the patient from oncology standpoint in 1 to 2 weeks. At this point, we are going to hold the patient's hydroxyurea until the oncologist sees the patient as an outpatient. MEDICATIONS AT DISCHARGE: Include: 1. Aspirin 81 mg daily. 2. Norpramin 50 mg at bedtime. 3. Cartia XT 30 mg daily. 4. Lasix 20 mg daily. 5. Glipizide 10 mg b.i.d. 6. Hydroxyurea as mentioned above to held until seen by Dr. Griggs. 7. Synthroid 75 mcg daily. 8. Lisinopril 5 mg daily. 9. Milk thistle extract 1 tablet daily. 10. Bactroban topical applied to left leg 3 times a day. 11. Omeprazole 20 mg b.i.d. 12. Pioglitazone 45 mg daily. 13. Azithromycin 250 mg daily for 2 days to complete a 5-day course. 14. Cefdinir 300 mg b.i.d. for 4 days to complete a 7-day course. 15. Metformin 1000 mg p.o. b.i.d. PHYSICAL EXAM AT THE TIME OF DISCHARGE: Blood pressure of 133/67, heart rate of 96 and regular, respiratory rate 18, oxygen saturation 98% on room air, temperature 98.2. General: The patient is a very pleasant 63-year-old female who is in no acute distress. Alert and oriented x3. HEENT: Head: Atraumatic , normocephalic. Eyes: Pupils are equal, reactive to light and accommodation. Oropharynx is clear. Mucosa moist. Neck: Supple. No JVD. No bruits bilaterally. Cardiovascular: Regular rate and rhythm. No murmur. Respiratory : Clear to auscultation bilaterally. Abdomen: Soft, nontender. Bowel sounds are present in all 4 quadrants. Extremities: There is no edema. Pulses are +2 bilaterally. No clubbing. No cyanosis. On evaluation of the skin, the patient has a small ulceration that is shallow of approximately 2 cm in diameter , approximately 10 cm above the left lateral malleolus. The fundus of the ulceration is moist, but not draining. There is no evidence of acute infection. At this point, the suspicion is that the patient may have an underlying chronic lung disease from which she was basically asymptomatic from, on top of that she developed somewhat atypical interstitial pneumonia. It is also possible that all of the patient's changes noted on the CT are due to pneumonia. The patient' s proteinuria may have been a chronic problem since the patient does have a history of chronic kidney disease and creatinine at baseline for this patient is approximately 1.2. Nevertheless, we still do not have the 24-hour protein measurements and that will have to be followed up by the primary care provider. The patient is also recommended to follow with Dr. Fried with likely CT in 4 to 6 weeks. Once again, Dr. Griggs will follow up with the patient in regards to the patient's hydroxyurea use. Please note that this is a short summary of the patient's hospitalization. Please refer to further medical records for details. TIME SPENT: Approximately 40 minutes was spent on the patient's discharge. [id number]/[facility] #: [id number] MTDD
[2019-03-29 14:25] LABS: Urine TP Concentration 131 mg/dL
== END 2019-03-29 13:00 | disposition home or self-care (01) | DRG 142 ==
LOC: ED 09:06 → MED 15:16
PROVIDERS: ADMIT Internal Medicine; ATTEND Internal Medicine
DX: J84.9 Interstitial pulmonary disease, unspecified (principal); J96.01 Acute respiratory failure with hypoxia; L97.929 Non-pressure chronic ulcer of unspecified part of left lower leg with unspecified severity; D45 Polycythemia vera; K21.9 Gastro-esophageal reflux disease without esophagitis; F32.9 Major depressive disorder, single episode, unspecified; Z79.82 Long term (current) use of aspirin; Z79.84 Long term (current) use of oral hypoglycemic drugs; Z79.899 Other long term (current) drug therapy; E03.9 Hypothyroidism, unspecified; Z79.890 Hormone replacement therapy; Z88.2 Allergy status to sulfonamides; Z87.891 Personal history of nicotine dependence; M47.9 Spondylosis, unspecified; M19.042 Primary osteoarthritis, left hand; M19.041 Primary osteoarthritis, right hand; N18.3 Chronic kidney disease, stage 3 (moderate); I12.9 Hypertensive chronic kidney disease with stage 1 through stage 4 chronic kidney disease, or unspecified chronic kidney disease; E11.22 Type 2 diabetes mellitus with diabetic chronic kidney disease
CPT/HCPCS: 36415; 71046; 71275; 80048; 80053; 81003; 81015; 83516; 83520; 83605; 84156; 84484; 85025; 85610; 85730; 86140; 87040; 87086; 87899; 99223; 99232; 99284; A9270-GY; J0456; J0696; J1644; Q9967

== ENCOUNTER 2019-04-05 12:50 | Inpatient (IN) | payer BC ==
[2019-04-05] MEDS ORDERED: NS 0.9% 1000 ML** 1,000 ML IV ONE ×2 (14:47→18:12)
--- NOTE | 2019-04-05 14:50 | ED ---
GI/ HPI - HPI Summary HPI Summary: Pt is a 63 y/o F w hx PCV, recent PNA presenting to the ED with R flank pain. She states she was here in the hospital last week for PNA, and had about 5 days of abx which she just finished. She reports continued SOB and cough as well as fatigue. Last night around 0200 she had pain in the R side of her abd/flank, and this morning around 1000 she urinated and had hematuria. Hx hematuria 2 weeks ago as well. Denies hx kidney stones or bladder issues. Has seen a jackaroo in past but cannot remember why. No recent fevers. Hx HTN and type II DM. - History of Current Complaint Chief Complaint: EDFlankPain Time Seen by Provider: 04/05/19 14:02 Stated Complaint: FLANK PAIN/BLOOD IN URINE PER PT Hx Obtained From: Patient Onset/Duration: Started Hours Ago, Still Present Timing: Constant, Lasting Hours Severity: Moderate Current Severity: Moderate Pain Intensity: 7 Location of Pain: RUQ, RLQ, Flank Associated Signs and Symptoms: Positive: Hematuria, Flank Pain, Abdominal Pain, UTI Symptoms Aggravating Factor(s): Nothing Alleviating Factor(s): Nothing - Additional Pertinent History Primary Care Physician: [facility]AW - Allergy/Home Medications Allergies/Adverse Reactions: Allergies Allergy/AdvReac Type Severity Reaction Status Date / Time Sulfa (Sulfonamide Allergy Rash And Verified 04/05/19 12:56 Antibiotics) Itching Home Medications: Home Medications Iron Polysaccharide Complex [Ferrex 150] 150 mg PO DAILY 04/05/19 [History Confirmed 04/05/19] PMH/Surg Hx/FS Hx/Imm Hx Previously Healthy: Yes Endocrine/Hematology History: Reports: Hx Bone Marrow Disease - Polycythemia Vera, Hx Diabetes - po meds, Hx Anemia - on iron Denies: Hx Thyroid Disease Cardiovascular History: Reports: Hx Hypertension - ON MEDS Denies: Hx Angina, Hx Coronary Artery Disease, Hx Hypercholesterolemia, Hx Pacemaker/ICD, Hx Valvular Heart Disease Comment Only: Hx Myocardial Infarction - ? 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 Denies: Hx Ulcer History: Denies: Hx Renal Disease Musculoskeletal History: Reports: Hx Arthritis - back and hands Denies: Hx Scoliosis Sensory History: Reports: Hx Contacts or Glasses - glasses Denies: Hx Deafness, Hx Hearing Aid, Hx Hearing Problem Opthamlomology History: Reports: Hx Contacts or Glasses - glasses Neurological History: Reports: Hx Nerve Disease - spine, Other Neuro Impairments /Disorders - fx skull at 2 yrs of age Denies: Hx Headaches Psychiatric History: Reports: Hx Depression - on med Denies: Hx Panic Disorder - Cancer History Hx Chemotherapy: No Hx Radiation Therapy: No - Surgical History Surgery Procedure, Year, and Place: Tonsilectomy. tubal ligation. anterior cervical discectomy w/ fusion. Carpal tunnel (Right). LSP - DISCECTOMY 02/02 Hx Anesthesia Reactions: No Infectious Disease History: No Infectious Disease History: Denies: Hx Clostridium Difficile, Hx Hepatitis, Hx Human Immunodeficiency Virus (HIV), Hx of Known/Suspected MRSA, Hx Shingles, Hx Tuberculosis, Hx Known/ Suspected VRE, Hx Known/Suspected VRSA, History Other Infectious Disease, Traveled Outside the [place] in Last 30 Days - Family History Known Family History: Positive: Hypertension, Other Family History: Lupus. Rheumatoid arthritis. - Social History Alcohol Use: None Hx Substance Use: No Substance Use Type: Reports: None Hx Tobacco Use: Yes Smoking Status (MU): Former Smoker Type: Cigarettes Amount Used/How Often: smoked for 12-13 years 1ppd Have You Smoked in the Last Year: No Review of Systems Positive: Abdominal Pain Positive: flank pain, hematuria All Other Systems Reviewed And Are Negative: Yes Physical Exam - Summary Physical Exam Summary: Constitutional: Well-developed, Well-nourished, Alert. (-) Distressed Skin: Warm, Dry HENT: Normocephalic; Atraumatic Eyes: Conjunctiva normal Neck: Musculoskeletal ROM normal neck. (-) JVD, (-) Stridor, (-) Nuchal rigidity Cardio: Rhythm regular, rate tachycardic, Heart sounds normal; Intact distal pulses; Radial pulses are 2+ and symmetric. (-) Murmur Pulmonary/Chest wall: Effort normal. L lower lobe rhonchi. (-) Respiratory distress, (-) Wheezes, (-) Rales Abd: Soft, R flank tenderness, (-) Distension, (-) Guarding, (-) Rebound Musculoskeletal: (-) Edema Lymph: (-) Cervical adenopathy Neuro: Alert, Oriented x3 Psych: Mood and affect Normal Triage Information Reviewed: Yes Vital Signs On Initial Exam: Initial Vitals Temp Pulse Resp BP Pulse Ox 97.4 F 103 14 176/95 97 04/05/19 12:52 04/05/19 12:52 04/05/19 12:52 04/05/19 12:52 04/05/19 12:52 Vital Signs Reviewed: Yes Procedures - Sedation Patient Received Moderate/Deep Sedation with Procedure: No Diagnostics - Vital Signs Vital Signs Temp Pulse Resp BP Pulse Ox 04/05/19 14:40 110 175/94 95 04/05/19 14:38 109 95 04/05/19 14:10 108 175/86 96 04/05/19 12:52 97.4 F 103 14 176/95 97 - Laboratory Result Diagrams: 04/06/19 05:49 04/06/19 05:49 Lab Statement: Any lab studies that have been ordered have been reviewed, and results considered in the medical decision making process. - Radiology CXR Radiology Interpretation Completed By: Radiologist Summary of Radiographic Findings: DIFFUSE INTERSTITIAL OPACIFICATION SUGGESTIVE OF PULMONARY INTERSTITIAL EDEMA WITH SMALL BILATERAL PLEURAL EFFUSIONS. ED physician has reviewed this report. - CT CT a/p CT Interpretation Completed By: Radiologist Summary of CT Findings: 1. BILATERAL NEPHROLITHIASIS WITH BILATERAL HYDRONEPHROSIS. 2. MARKED HEPATOSPLENOMEGALY. 3. SMALL BILATERAL PLEURAL EFFUSIONS. ED physician has reviewed this report. Re-Evaluation - Re-Evaluation First Eval Change: Improved - CT w bilateral hydronephrosis. Labs w elevated WBC (hx of PCV ) but higher than admission WBC. UA w/o infection. D/w urology, who can see her tmrw, no emergent intervention. Covered broadly w abx for vs pulm source of infection. GIGU Course/Dx - Course Course Of Treatment: 63 y/o F w hx HTN, PCV, recent PNA p/w R flank pain and hematuria. - physical exam with left lower lobe rhonchi, hypoxic on 2 L at 94% . Mild tachycardia in the low 00s. Also has right flank pain. We'll check labs including a UA, as well as CT abdomen and pelvis. Concern for persistent infection will check a chest x-ray. - Diagnoses Provider Diagnoses: Right flank pain, Pneumonia - Physician Notifications Discussed Care Of Patient With: Davy Ordaz Time Discussed With Above Provider: 16:55 Instructed by Provider To: Admit As Inpatient Discharge ED - Sign-Out/Discharge Documenting (check all that apply): Patient Departure - Discharge Plan Condition: Stable Disposition: ADMITTED TO [facility] - Billing Disposition and Condition Condition: STABLE Disposition: Admitted to [facility] - Attestation Statements Document Initiated by Mariee: Yes Documenting Scribe: Negar Ortiz Provider For Whom Terrie is Documenting (Include Credential): Iona Pederson MD. Scribe Attestation: I, Negar Ortiz, scribed for Iona Pederson MD. on 04/06/19 at 1911. Scribe Documentation Reviewed: Yes Provider Attestation: The documentation as recorded by the scribe, Negar Ortiz accurately reflects the service I personally performed and the decisions made by me, Iona Pdeerson MD. Status of Scribe Document: Viewed Consult Consult: [id number] - I spoke with Dr. Purvis about the pt's present condition. Dr. Purvis reviewed the CT & labs and would like to wait for the UA to come back.
[2019-04-05 14:55] LABS: Hematocrit 41 % (35-47); Hemoglobin 13.3 g/dL (12.0-16.0); Mean Corpuscular HGB Conc 32 g/dL (31-36); Mean Corpuscular Hemoglobin 32 pg (27-31); Mean Corpuscular Volume 100 fL (80-97); Mean Platelet Volume 9.9 fL (7.4-10.4); Platelet Count 597 10^3/uL (150-450); Red Blood Count 4.11 10^6 /uL (3.70-4.87); Red Cell Distribution Width 20 % (10-15)
[2019-04-05] MEDS ORDERED: Morphine 4 MG/ML VIAL (1 ml) 4 MG/ML VIAL IV ONE (15:03)
[2019-04-05 15:11] LABS: Albumin 3.2 g/dL (3.2-5.2); Albumin/Globulin Ratio 1.2 (1-3); BUN/Creatinine Ratio 15.4 (8-20); Calcium 8.3 mg/dL (8.6-10.3); EGFR African American 44.7 (>60); EGFR Non-African American 36.9 (>60); Globulin 2.7 g/dL (2-4); Total Bilirubin 0.5 mg/dL (0.2-1.0); Total Protein 5.9 g/dL (6.4-8.9)
[2019-04-05] MEDS ORDERED: Iodixanol* (CONTRAST) 320 MG/ML 100 ML SDV IV ONE (15:17)
[2019-04-05 15:46] LABS: Polychromasia 2+
[2019-04-05 15:48] LABS: Platelet Morphology Large
[2019-04-05 15:49] LABS: ABS Lymphocytes 0.6 10^3/ul (1.0-4.8); ABS Monocytes 0.7 10^3/ul (0-0.8); ABS Neutrophils 24.7 10^3/ul (1.5-7.7); ABS Nucleated RBC 0.5 10^3/ul; Eosinophil % 0.2 %; Lymphocyte % 2.3 %; Nucleated Red Blood Cells % 1.7
[2019-04-05] MEDS ORDERED: cefTRIAXone(*) 1 GM in NS 0.9% 50 ML* 50 ML IVPB ONE (16:11)
[2019-04-05 16:40] LABS: Urine Appearance Turbid; Urine Bacteria Absent (Absent); Urine Bilirubin Negative (Negative); Urine Blood 3+ (Negative); Urine Color Amber; Urine Glucose 2+(150 mg/dL) (Negative); Urine Ketones Negative (Negative); Urine Nitrite Negative (Negative); Urine Protein 2+(100 mg/dL) (Negative); Urine Red Blood Cell 3+(>10/hpf) (Absent); Urine Specific Gravity 1.017 (1.010-1.030); Urine Urobilinogen Negative (Negative); Urine White Blood Cell Trace(0-5/hpf) (Absent)
[2019-04-05] MEDS ORDERED: DOXYcycline CAP(*) 100 MG PO ONE (16:52)
[2019-04-05] MEDS ORDERED: Morphine 4 MG/ML VIAL (1 ml) 4 MG/ML VIAL IV PRN ×2 (18:37→18:53)
[2019-04-05] MEDS ORDERED: Acetaminophen TAB* 325 MG PO PRN (18:49)
[2019-04-05] MEDS ORDERED: Ondansetron INJ* 2 MG/ML VIAL IV PRN (18:49)
[2019-04-05] MEDS ORDERED: Dextrose 50% VIAL 50 ml IV PUSH PRN (18:55)
[2019-04-05] MEDS ORDERED: hydrALAZINE IV* 20 MG/ML VIAL IV SLOW PU PRN (18:59)
--- NOTE | 2019-04-05 21:32 | HP ---
AMENDED REPORT NOW INCLUDES DESIGNATED COSIGNER ADMISSION HISTORY AND PHYSICAL: DATE OF ADMISSION: 04/05/19 PRIMARY CARE PROVIDER: GUILLERMO Dumont PROVIDER: Gloria Agrawal NP ATTENDING PHYSICIAN: Dr. Ordaz.* (DICTATED BY GLORIA AGRAWAL NP) OTHER PROVIDER: Dr. Purvis. CHIEF COMPLAINT: Right flank pain and hematuria. HISTORY OF PRESENT ILLNESS: This is a 63-year-old female with a past medical history significant for recent pneumonia, polycythemia vera and type 2 diabetes , who presented to the emergency room today after developing right flank pain around 2 a.m. this morning accompanied by hematuria. Of note, the patient had been hospitalized from 03/27/19 through 03/29/19 for pneumonia during which she completed a course of azithromycin and cefdinir with the recommendation for a repeat CT in April. She also reported 3 weeks worth of nausea that happened since before her original admission, nothing makes it better. Food smells or taking pills makes it worse. She has had 4 bouts of vomiting this week. Denies any blood in her emesis. She has also had diarrhea for the past 1-1/2 weeks which is intermittent. Some times she can go up to 1 day without having a bowel movement, other times she has 3 to 4 liquid bowel movements in a day. Nothing seems to make it worse or better. In the emergency room, she received 2 units of normal saline, received a 1 g of ceftriaxone and morphine for her pain. Labs were drawn. Chest x-ray and abdominal pelvic CT performed. At the time of my evaluation, the patient reported a 7/10 right flank pain with no pain on the left side, no pain with vibration to bilateral upper back. Urine that remained in a specimen cup was dark brown with gross hematuria. Denied nausea. Did not feel feverish or chilled at the moment, though had last night. PAST MEDICAL HISTORY: Polycythemia vera, diabetes type 2, GERD, hypertension, hypothyroidism, herniated disk x2, Raynaud's, depression, gout, gastric ulcer, anemia, JAK2 plus ET. PAST SURGICAL HISTORY: Cardiac cath which revealed she was negative for coronary artery disease, tonsillectomy, carpal tunnel release, tubal ligation, lumbar diskectomy. HOME MEDICATIONS: 1. Omeprazole 20 mg p.o. daily. 2. Milk thistle seed extract 140 mg p.o. daily. 3. Metformin 1000 mg p.o. daily. 4. Lisinopril 5 mg p.o. daily. 5. Levothyroxine 75 mcg p.o. daily. 6. Furosemide 20 mg p.o. daily. 7. Glipizide 10 mg p.o. daily. 8. Iron polysaccharide complex 150 mg p.o. daily. 9. Diltiazem 300 mg p.o. daily. 10. Desipramine 50 mg p.o. daily. 11. Aspirin 81 mg p.o. daily. 12. Pioglitazone 45 mg p.o. daily. ALLERGIES: SULFA. FAMILY HISTORY: Mother had uterine cancer and emphysema. Father had heart disease, diabetes type 2 and CHF. Aunt had uterine cancer. Sister had lupus and scleroderma, breast cancer and Raynaud's. SOCIAL HISTORY: Quit smoking 34 years ago. Drinks an alcoholic drink 5 times a year. Denies any substance use. 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 She is and has 2 children. REVIEW OF SYSTEMS: An 11-point system review was performed, which was positive for low appetite and energy, feeling chilled last night, coughing without any sputum, diarrhea, nausea, right flank pain and hematuria. Negative for chest pain, shortness of breath. PHYSICAL EXAMINATION GENERAL: This is a well-developed woman seen resting in bed, in no acute distress noted. VITAL SIGNS: 97.4 temperature, 107 pulse, 16 respirations, 95% oxygen on room air, and 169/92 blood pressure. HEENT: Eyes: Conjunctivae pink and moist. PERRLA. EOMs intact. ENT: Mucous membranes moist. Oropharynx clear. NECK: Supple. RESPIRATORY: Lung sounds clear throughout bilaterally on room air with no accessory muscle use noted. CARDIAC: S1, S2 present. Heart rate regular. No murmurs, gallops, or rubs appreciated. ABDOMEN: Soft, nontender with positive bowel sounds x4, though tenderness to palpation on the right flank. MUSCULOSKELETAL: No clubbing or cyanosis of the digits. Full range of motion in all extremities. NEUROLOGICAL: No focal deficits appreciated. Sensation intact to light touch. PSYCH: Alert and oriented x3. Thought content organized. SKIN: Intact with no rashes or lesions noted. DIAGNOSTIC STUDIES/LAB DATA: Pertinent lab data: White blood cell count 26.0 , MCV 100, MCHC 32, RDW 20, platelet count 597. Creatinine 1.43, glucose 255, lactic acid 1.1, calcium 83. AST 8, ALT 6, alkaline phosphatase 131 and total protein 5.9. Urine showed 2+ protein, 3+ blood, 3+ rbc's, positive for calcium oxalate crystal and 2+ glucose. Diagnostic studies: Abdomen/pelvis CT showed bilateral nephrolithiasis with bilateral hydronephrosis, marked hepatosplenomegaly and small bilateral pleural effusions. Chest x-ray showed diffuse interstitial opacification suggestive of pulmonary interstitial edema with small bilateral pleural effusions. ASSESSMENT AND PLAN: My impression is that this is a 63-year-old female with a past medical history significant for pneumonia, polycythemia vera and diabetes type 2, who is admitted on 04/05/19 for bilateral nephrolithiasis and bilateral hydronephrosis, who is still recovering from recent bout of pneumonia. 1. Bilateral nephrolithiasis and hydronephrosis. There does not appear to be any urinary tract infection according to the urinalysis; however, there was gross hematuria. We will perform full renal and bladder ultrasound per suggestion of Dr. Purvis to look for presence of jets from the right or left ureteral orifices. He is to be contacted if there is a lack of jets, which means may need emergent surgery. We will keep n.p.o. for now, normal saline 125 , pain control with morphine, offered Zofran. Place the patient on ceftriaxone due to leukocytosis, which may be a result of some irritation or infection from the nephrolithiasis. 2. Recent history of pneumonia, bilateral pleural effusions seemed to be unchanged from previous admission. The patient has no symptoms of pneumonia exacerbation. Lung sounds are clear. Respirations are not labored. She is coughing without any sputum production and even then only occasionally. The patient had been given ceftriaxone for her presenting problem, which will also help cover any pathogen should this be a rebound pneumonia, however, unlikely. It was suggested in a previous discharge summary that the patient is to have a followup CT scan in April of her lungs. 3. Polycythemia vera. The patient has had all her medications held as per Heme /Onc until further notice. Platelet count is elevated. We will recheck CBC in the a.m. 4. Diabetes type 2. We will recheck hemoglobin A1c as last one has not been done since November and the patient has dated ever since her admissions, her blood sugars are regularly in the high 200s, low 300s despite being maximized on metformin, pioglitazone and glipizide. We will do fingersticks a.c. and h.s. with sliding scale lispro coverage. The patient did agree to small dose of glargine while she is in the hospital; however, the patient stated that she is resistant to the idea of having to go on insulin. It is probable that her glucoses have been elevated this month due to her pneumonia and probable concurrent corticosteroid use. We will talk with the patient further after hemoglobin A1c has resulted, otherwise hold metformin until discharge. Continue glipizide if family member is able to provide pioglitazone. I would be happy to continue that during her stay. 5. Hypertension. The patient has been hypertensive since arrival with systolic blood pressures in the 160s to 170s, though she is asymptomatic. We will continue her diltiazem and lisinopril; however, I will hold her furosemide in light of bumped creatinine and possible dehydration. I did order p.r.n. hydralazine as needed. 6. Hypothyroidism. Continue Synthroid. 7. Depression. Continue the desipramine. 8. DVT prophylaxis: Lovenox. 9. Code status is full code. 10. Disposition is admit OBV to short-stay surgical. Condition is guarded. TIME SPENT: Time spent on the patient is 60 minutes with more than half of that spent [id number]. GLORIA AGRAWAL, [employer] MAINTAINER [id number]/[facility] #: [id number] KIAN
[2019-04-05] MEDS: NS 0.9% 1000 ML** 1,000 ML IV SCH (23:08)
[2019-04-05] MEDS: glipiZIDE TAB* 5 MG PO SCH (23:38)
[2019-04-05] MEDS: Insulin LISPRO* 1 UNITS UNIT SUBCUT SCH (23:38)
[2019-04-05] MEDS: Pantoprazole TAB * 40 MG TAB PO SCH (23:38)
[2019-04-05] MEDS: Insulin GLARGINE(*) 1 UNITS UNIT SUBCUT SCH (23:38)
[2019-04-05] MEDS: Enoxaparin(*) 40 MG/0.4 ML SYR SUBCUT SCH (23:38)
[2019-04-06] MEDS: Morphine INJ* 4 MG/ML 1 ML SYRINGE (NEW SYRINGE VERSION) IV PRN ×2 (03:59→08:53)
[2019-04-06] MEDS: Levothyroxine TAB* 75 MCG TAB PO SCH (05:45)
[2019-04-06 05:58] LABS: Hematocrit 36 % (35-47); Hemoglobin 11.7 g/dL (12.0-16.0); Mean Corpuscular HGB Conc 33 g/dL (31-36); Mean Corpuscular Hemoglobin 33 pg (27-31); Mean Corpuscular Volume 100 fL (80-97); Mean Platelet Volume 9.5 fL (7.4-10.4); Platelet Count 477 10^3/uL (150-450); Red Blood Count 3.57 10^6 /uL (3.70-4.87); Red Cell Distribution Width 20 % (10-15); White Blood Count 21.9 10^3/uL (3.5-10.8)
[2019-04-06 06:18] LABS: BUN/Creatinine Ratio 12.3 (8-20); Calcium 7.3 mg/dL (8.6-10.3); EGFR Non-African American 33.9 (>60)
[2019-04-06 06:45] LABS: ABS Basophils 0.1 10^3/ul (0-0.2); ABS Lymphocytes 0.6 10^3/ul (1.0-4.8); ABS Monocytes 0.6 10^3/ul (0-0.8); ABS Neutrophils 20.7 10^3/ul (1.5-7.7); ABS Nucleated RBC 0.3 10^3/ul; Eosinophil % 0.2 %; Lymphocyte % 2.5 %; Nucleated Red Blood Cells % 1.6
[2019-04-06] MEDS: NS 0.9% 1000 ML** 1,000 ML IV SCH ×2 (07:46→17:22)
[2019-04-06] MEDS: Aspirin EC TAB* 81 MG TAB.EC PO SCH (08:51)
[2019-04-06] MEDS: Insulin LISPRO* 1 UNITS UNIT SUBCUT SCH ×4 (08:51→20:42)
[2019-04-06] MEDS: glipiZIDE TAB* 5 MG PO SCH (08:52)
[2019-04-06] MEDS: Diltiazem CD CAP* 120 MG PO SCH (08:52)
[2019-04-06] MEDS: Diltiazem CD CAP* 180 MG PO SCH (08:52)
[2019-04-06] MEDS: Pantoprazole TAB * 40 MG TAB PO SCH ×2 (08:53→20:40)
[2019-04-06] MEDS: PIOGLITAZONE 15 MG PO SCH (08:54)
[2019-04-06] MEDS: Desipramine TAB* 50 MG PO SCH (08:54)
[2019-04-06] MEDS ORDERED: IRON POLYSACCHARIDE COMPLEX 150 MG PO SCH (09:00)
[2019-04-06] MEDS ORDERED: Lisinopril TAB* 5 MG PO SCH ×2 (09:00)
--- NOTE | 2019-04-06 11:41 | PN ---
Subjective Date of Service: 04/06/19 Interval History: Pt c/o R flank pain . Hematuria still presents. SOB ever since her d/c for PNA Objective Active Medications: Acetaminophen (Tylenol Tab*) 650 mg PO Q4H PRN PRN Reason: MILD PAIN or TEMP > 100.4 Aspirin (Aspirin Ec Tab*) 81 mg PO DAILY [facility] Last Admin: 04/06/19 08:51 Dose: 81 mg Desipramine HCl (Norpramin Tab*) 50 mg PO DAILY [facility] Last Admin: 04/06/19 08:54 Dose: 50 mg Dextrose (Dextrose 50% Vial 50 Ml*) 25 ml IV PUSH .FOR FS < 60 - SS PRN PRN Reason: FS < 60 Diltiazem HCl (Cardizem Cd Cap*) 180 mg PO DAILY [facility] Last Admin: 04/06/19 08:52 Dose: 180 mg Diltiazem HCl (Cardizem Cd Cap*) 120 mg PO DAILY [facility] Last Admin: 04/06/19 08:52 Dose: 120 mg Enoxaparin Sodium (Lovenox(*)) 40 mg SUBCUT Q24H [facility] Last Admin: 04/05/19 23:38 Dose: 40 mg Glipizide (Glucotrol Tab*) 10 mg PO BID [facility] Last Admin: 04/06/19 08:52 Dose: 10 mg Hydralazine HCl (Apresoline Iv*) 10 mg IV SLOW PU Q6H PRN PRN Reason: SYSTOLIC BP GREATER THAN: Sodium Chloride (Ns 0.9% 1000 Ml) 1,000 mls @ 125 mls/hr IV PER RATE [facility] Last Admin: 04/06/19 07:46 Dose: 125 mls/hr Ceftriaxone Sodium 1 gm/ (Sodium Chloride) 50 mls @ 100 mls/hr IVPB Q24H [facility] Insulin Glargine (Lantus(*)) 5 units SUBCUT Q24H [facility] Last Admin: 04/05/19 23:38 Dose: 5 units Insulin Human Lispro (Humalog*) 0 units SUBCUT ACHS [facility]; Protocol Last Admin: 04/06/19 08:51 Dose: 2 unit Levothyroxine Sodium (Synthroid Tab*) 75 mcg PO DAILY@0600 [facility] Last Admin: 04/06/19 05:45 Dose: 75 mcg Lisinopril (Prinivil Tab*) 5 mg PO DAILY [facility] Last Admin: 04/06/19 08:53 Dose: 5 mg Morphine Sulfate (Morphine Inj (Syringe)*) 4 mg IV Q2H PRN PRN Reason: PAIN - SEVERE Last Admin: 04/06/19 08:53 Dose: 4 mg Ondansetron HCl (Zofran Inj*) 4 mg IV Q4H PRN PRN Reason: NAUSEA/VOMITING Oxycodone/Acetaminophen (Percocet 5/325 Tab*) 1 tab PO Q4H PRN PRN Reason: PAIN - MODERATE Pantoprazole Sodium (Protonix Tab*) 40 mg PO BID [facility] Last Admin: 04/06/19 08:53 Dose: 40 mg Pioglitazone HCl (Actos Tab*) 45 mg PO DAILY [facility] Last Admin: 04/06/19 08:54 Dose: 45 mg Vital Signs - 8 hr 04/06/19 04/06/19 04/06/19 03:59 05:29 07:32 Temperature 97.0 F Pulse Rate 102 Respiratory 18 18 26 Rate Blood Pressure 138/63 (mmHg) O2 Sat by Pulse 97 Oximetry 04/06/19 04/06/19 08:00 08:53 Temperature Pulse Rate Respiratory 22 22 Rate Blood Pressure (mmHg) O2 Sat by Pulse Oximetry Oxygen Devices in Use Now: Nasal Cannula Appearance: 63 yo F in nAD, AAOx3 Eyes: No Scleral Icterus, PERRLA Ears/Nose/Mouth/Throat: NL Teeth, Lips, Gums, Mucous Membranes Moist Neck: NL Appearance and Movements; NL JVP, Trachea Midline Respiratory: Symmetrical Chest Expansion and Respiratory Effort, - - crackles at b/l bases Cardiovascular: RRR Abdominal: - - R flank tenderness, no rebound, no guarding Lymphatic: No Cervical Adenopathy Extremities: No Edema, No Clubbing, Cyanosis Skin: - - chronic , small , shallow left leg ulcer 10 cm above L lateral melleolus Neurological: Alert and Oriented x 3, NL Muscle Strength and Tone Result Diagrams: 04/06/19 05:49 04/06/19 05:49 Assess/Plan/Problems-Billing Assessment: 63 yo F with h/o PV(on hydroxyurea -held 4 weeks ago),Raynaud's, HTN , DM2, chronic let leg ulcer who presents with SOB, found to have b/l hydronephrosis. Dx with with PNA and diffuse interstitial lung changes noted on CT 03/28/19- finished a course of antibiotics - Patient Problems (1) Hydronephrosis Comment: due to stones, b/l Planned for cystoscopy today cont Ceftriaxone (2) CKD (chronic kidney disease) stage 3, GFR 30-59 ml/min Comment: with worsening due to obstruction (3) DM2 (diabetes mellitus, type 2) Comment: cont iSS and Lantus (4) HTN (hypertension) Comment: cont Cartia. holding lisinopril and furosemide BP controlled (5) Polycythemia vera Comment: Off hydroxyurea x 4 weeks(stopped by DR. Castellanos to allow healing of left leg wound) Marked leukocystosis likley related to PV and no hydroxyurea (6) DVT prophylaxis Comment: HSQ Status and Disposition: inpatient
[2019-04-06] MEDS ORDERED: Acetaminophen TAB* 325 MG PO ONE (11:49)
[2019-04-06] MEDS ORDERED: Buffered Lidocaine 1% SYRIN* 1 ML/SYRINGE INTRADERM ONE (11:49)
[2019-04-06] MEDS ORDERED: Lactated Ringers 1000 ML Bag* 1,000 ML IV SCH (12:00)
[2019-04-06] MEDS ORDERED: Iohexol 180 (CONTRAST) 10 ML SDV IV ONE (12:08)
--- NOTE | 2019-04-06 12:45 | CONS ---
CONSULTATION NOTE: DATE OF CONSULT: 04/06/19 HISTORY OF PRESENT ILLNESS: I was asked by the hospitalist service to see this 63- year-old white female because of right flank pain, right hydronephrosis, and leukocytosis. Ms. Diaz presented to the emergency room yesterday with right flank pain, gross hematuria. There was no associated fever or chills. She had some frequency and urgency. She was evaluated in the emergency room and her urinalysis was grossly bloody, negative for infection. CT of the abdomen and pelvis showed mild to moderate right hydronephrosis and there was a punctate calcification noted at the level of the right ureterovesical junction. There was also a minimally obstructing 3 to 4 mm calculus at the left ureteropelvic junction. Her blood work showed a white count of 26,000 with shift and her serum creatinine was 1.4. The patient, however, was afebrile and her blood pressure was normal but she was a bit tachycardic at 100. She had been recently treated for pneumonitis and she has a history of polycythemia and it was unclear if that elevated white count was because of her hematological condition or caused by the pneumonia. The patient was admitted and started on IV antibiotics with ceftriaxone. She remained afebrile. Renal ultrasound was obtained last night and it continued to show mild right hydronephrosis and no left hydronephrosis and there were no jets noted from either ureteral orifice. I saw the patient this morning. She was still having right flank and right upper quadrant pain and tenderness. Her white count is down to 22,000. She has remained afebrile and her heart rate has improved down to 90. Her serum creatinine, however, had increased to 1.5. Blood pressure was 120/60. The patient's past history is negative. No past history of renal diseases or calculi and no history of hematuria. She is a nonsmoker. IMPRESSION: Persistent right flank pain with persistent leukocytosis and slight increase of the serum creatinine in spite of good hydration. Small distal right ureteral calculus, and a 4 mm minimally obstructing calculus at the left ureteropelvic junction. PLAN: Considering the above history, the likelihood is that her right-sided pain is caused by the obstructing calculus. The plan is for cystoscopy and placement of bilateral ureteral stents in preparation for definitive treatment of the stones. I discussed the above plans with the patient and her daughter and their questions were answered. [id number]/[facility] #: [id number] MTDGonzales
[2019-04-06] MEDS ORDERED: Ondansetron INJ* 2 MG/ML VIAL IV PRN (13:32)
[2019-04-06] MEDS ORDERED: oxyCODONE TAB* 5 MG TAB PO PRN (13:32)
[2019-04-06] MEDS ORDERED: Naloxone* 0.4 MG/ML 1 ML VIAL IV PRN (13:32)
[2019-04-06] MEDS ORDERED: HYDROmorphone INJ1* 1 MG/ML SYRINGE IV PRN (13:32)
[2019-04-06] MEDS ORDERED: fentaNYL* 50 MCG/ML 2 ML VIAL (100 MCG VIAL) ONE (13:59)
[2019-04-06] MEDS: cefTRIAXone(*) 1 GM in NS 0.9% 50 ML* 50 ML IVPB SCH (17:22)
[2019-04-06] MEDS: Enoxaparin(*) 40 MG/0.4 ML SYR SUBCUT SCH (20:39)
[2019-04-06] MEDS: oxyCODONE/Acetamin 5/325 MG* TAB PO PRN (20:40)
[2019-04-06] MEDS: Insulin GLARGINE(*) 1 UNITS UNIT SUBCUT SCH (20:41)
--- NOTE | 2019-04-06 21:30 | OP ---
DATE OF OPERATION: 04/06/19 - ROOM #410 DATE OF : 53 SURGEON: Haile Purvis MD ANESTHESIOLOGIST: Dr. Stern. ANESTHESIA: General. LOCATION: [address] [place] [address]. PRE-OP DIAGNOSES: 1. Right hydronephrosis. 2. Bilateral ureteral calculi. POST-OP DIAGNOSES: 1. Right hydronephrosis. 2. Bilateral ureteral calculi. OPERATIVE PROCEDURE: 1. Cystoscopy. 2. Bilateral retrograde pyelographies. 3. Bilateral ureteral stents insertion (6-Angolan). INDICATIONS FOR PROCEDURE: Mrs. Diaz is a 63-year-old white female who presented to the emergency room yesterday with right flank pain and gross hematuria. Her urine was positive for blood, negative for infection. Her white count was elevated at 26,000. She was afebrile. Serum creatinine 1.4. CT of the abdomen and pelvis showed moderate right hydronephrosis, small nonobstructing calculus in the lower pole calyx of the right kidney and a 2 to 3 mm calculus at the right ureterovesical junction. There was a 4 mm nonobstructing calculus at the left ureteropelvic junction. The patient was admitted and placed on IV antibiotics. She continues to have right flank pain. Her white count is down to 20,000. Her serum creatinine up to 1.5. With the above findings and the persistent pain and although the ureteral calculi are very small; however, because of concern about sepsis, the patient is taken to the operating room for bilateral ureteral stents insertion. PATHOLOGY AT CYSTOSCOPY: The bladder mucosa was normal. There were no suspicious of bladder lesions seen. The urine drained from the bladder was dark red. There was gravel in the bladder and a 3-mm calculus in the bladder that seemed to have come out from the right ureteral orifice. The gravel and the small calculus were light grayish in color representing either uric acid or calcium phosphate calculi. The right ureter was dilated.and tortuous proximally. There was moderate right hydronephrosis. There was residual contrast from her study yesterday. The urine from the right kidney was dark, bloody. Left retrograde pyelography showed minimal dilatation of the left ureter and collecting system. The urine from the left kidney was clear. No radiopaque calculi were noted. DESCRIPTION OF PROCEDURE: After successful general anesthesia with the patient in the lithotomy position and after proper scrubbing and draping, cystoscopy was performed. The bladder was inspected and the above findings were noted. The small calculus noted in the bladder was extracted and sent for stone analysis. A Flexible tip guidewire was introduced into the right orifice and the tortuosity of the proximal ureter was noted. There was still minimal contrast allowing the visualization of the collecting system and of the ureter. The guide-wire was successfully introduced through the tortuousities and positioned inside the renal pelvis. The open ended catheter was then fed on top of the guidewire and positioned in the renal pelvis. Bloody efflux was drained from the right kidney and the system was decompressed. The urine drained from the right kidney was sent for cytology and culture and sensitivity. A size 6-Angolan stent was then placed with the proximal end coiling in the renal pelvis and the distal end coiling inside the bladder. There was significant degree of drainage of bloody urine around and through the right ureteral stent. Attention was then directed to the left side. A flexible tip guidewire was introduced into the left orifice and positioned in the area of the renal pelvis. Retrograde pyelography was performed. A size 6-Angolan stent was then placed with the proximal end coiling in the renal pelvis and the distal end coiling inside the bladder. There was good drainage of contrast from both kidneys. A size 16-Angolan Marshall catheter was then placed. The patient tolerated the procedure well and left the operating room in good condition. The plan is to keep the Marshall in place until tomorrow to allow the adequate drainage of the right kidney. Serum uric acid will be obtained. Decision on the when to remove the stent will be made as the patient recovers. [id number]/[facility] #: [id number] MTDD
[2019-04-07] MEDS: NS 0.9% 1000 ML** 1,000 ML IV SCH ×3 (01:33→23:30)
[2019-04-07] MEDS: oxyCODONE/Acetamin 5/325 MG* TAB PO PRN ×3 (01:56→14:07)
[2019-04-07] MEDS: Levothyroxine TAB* 75 MCG TAB PO SCH (05:27)
[2019-04-07 06:26] LABS: Hematocrit 35 % (35-47); Hemoglobin 11.3 g/dL (12.0-16.0); Mean Corpuscular HGB Conc 32 g/dL (31-36); Mean Corpuscular Hemoglobin 33 pg (27-31); Mean Corpuscular Volume 101 fL (80-97); Mean Platelet Volume 9.9 fL (7.4-10.4); Platelet Count 437 10^3/uL (150-450); Red Blood Count 3.46 10^6 /uL (3.70-4.87); Red Cell Distribution Width 20 % (10-15); White Blood Count 24.1 10^3/uL (3.5-10.8)
[2019-04-07 06:37] LABS: ABS Basophils 0.1 10^3/ul (0-0.2); ABS Lymphocytes 0.5 10^3/ul (1.0-4.8); ABS Monocytes 0.6 10^3/ul (0-0.8); ABS Neutrophils 22.9 10^3/ul (1.5-7.7); ABS Nucleated RBC 0.3 10^3/ul; Eosinophil % 0.1 %; Nucleated Red Blood Cells % 1.1
[2019-04-07 06:56] LABS: BUN/Creatinine Ratio 12.1 (8-20); Calcium 7.4 mg/dL (8.6-10.3); EGFR African American 29.2 (>60); EGFR Non-African American 24.1 (>60); Potassium 4.3 mmol/L (3.5-5.0)
[2019-04-07] MEDS: PIOGLITAZONE 15 MG PO SCH (08:22)
[2019-04-07] MEDS: Diltiazem CD CAP* 180 MG PO SCH (08:22)
[2019-04-07] MEDS: Desipramine TAB* 50 MG PO SCH (08:22)
[2019-04-07] MEDS: Pantoprazole TAB * 40 MG TAB PO SCH ×2 (08:22→20:17)
[2019-04-07] MEDS: Diltiazem CD CAP* 120 MG PO SCH (08:22)
[2019-04-07] MEDS: Aspirin EC TAB* 81 MG TAB.EC PO SCH (08:22)
[2019-04-07] MEDS ORDERED: Magnesium Hydroxide LIQ* 30 ML UDC PO PRN (08:24)
[2019-04-07] MEDS ORDERED: Senna TAB 8.6 mg* TAB PO PRN (08:24)
[2019-04-07] MEDS ORDERED: Polyethylene Glycol 3350* 17 GM PACKET PO PRN (08:24)
[2019-04-07] MEDS: Insulin LISPRO* 1 UNITS UNIT SUBCUT SCH ×4 (08:24→20:18)
--- NOTE | 2019-04-07 08:31 | PN ---
Subjective Date of Service: 04/07/19 Interval History: Pt c/o left flank pain today. Urine in Marshall bag with hematuria, no clots Objective Active Medications: Acetaminophen (Tylenol Tab*) 650 mg PO Q4H PRN PRN Reason: MILD PAIN or TEMP > 100.4 Aspirin (Aspirin Ec Tab*) 81 mg PO DAILY [facility] Last Admin: 04/07/19 08:22 Dose: 81 mg Desipramine HCl (Norpramin Tab*) 50 mg PO DAILY [facility] Last Admin: 04/07/19 08:22 Dose: 50 mg Dextrose (Dextrose 50% Vial 50 Ml*) 25 ml IV PUSH .FOR FS < 60 - SS PRN PRN Reason: FS < 60 Diltiazem HCl (Cardizem Cd Cap*) 180 mg PO DAILY [facility] Last Admin: 04/07/19 08:22 Dose: 180 mg Diltiazem HCl (Cardizem Cd Cap*) 120 mg PO DAILY [facility] Last Admin: 04/07/19 08:22 Dose: 120 mg Docusate Sodium (Colace Cap*) 100 mg PO BID [facility] Enoxaparin Sodium (Lovenox(*)) 40 mg SUBCUT Q24H [facility] Last Admin: 04/06/19 20:39 Dose: 40 mg Hydralazine HCl (Apresoline Iv*) 10 mg IV SLOW PU Q6H PRN PRN Reason: SYSTOLIC BP GREATER THAN: Ceftriaxone Sodium 1 gm/ (Sodium Chloride) 50 mls @ 100 mls/hr IVPB Q24H [facility] Last Admin: 04/06/19 17:22 Dose: 100 mls/hr Sodium Chloride (Ns 0.9% 1000 Ml) 1,000 mls @ 75 mls/hr IV PER RATE [facility] Insulin Glargine (Lantus(*)) 5 units SUBCUT Q24H [facility] Last Admin: 04/06/19 20:41 Dose: 5 units Insulin Human Lispro (Humalog*) 0 units SUBCUT ACHS [facility]; Protocol Last Admin: 04/07/19 08:24 Dose: 2 unit Levothyroxine Sodium (Synthroid Tab*) 75 mcg PO DAILY@0600 [facility] Last Admin: 04/07/19 05:27 Dose: 75 mcg Magnesium Hydroxide (Milk Of Magnesia Liq*) 30 ml PO BID [facility] Magnesium Hydroxide (Milk Of Magnesia Liq*) 30 ml PO BID PRN PRN Reason: CONSTIPATION Morphine Sulfate (Morphine Inj (Syringe)*) 4 mg IV Q2H PRN PRN Reason: PAIN - SEVERE Last Admin: 04/06/19 08:53 Dose: 4 mg Ondansetron HCl (Zofran Inj*) 4 mg IV Q4H PRN PRN Reason: NAUSEA/VOMITING Oxycodone/Acetaminophen (Percocet 5/325 Tab*) 1 tab PO Q4H PRN PRN Reason: PAIN - MODERATE Last Admin: 04/07/19 08:21 Dose: 1 tab Pantoprazole Sodium (Protonix Tab*) 40 mg PO BID [facility] Last Admin: 04/07/19 08:22 Dose: 40 mg Pioglitazone HCl (Actos Tab*) 45 mg PO DAILY [facility] Last Admin: 04/07/19 08:22 Dose: 45 mg Polyethylene Glycol/Electrolytes (Miralax*) 17 gm PO DAILY PRN PRN Reason: CONSTIPATION Senna (Senokot 8.6 Mg Tab*) 1 tab PO BEDTIME PRN PRN Reason: CONSTIPATION Vital Signs - 8 hr 04/07/19 04/07/19 04/07/19 01:28 01:45 01:56 Temperature 97.6 F Pulse Rate 99 Respiratory 20 200 20 Rate Blood Pressure 137/65 (mmHg) O2 Sat by Pulse 96 Oximetry 04/07/19 04/07/19 04/07/19 04:29 05:44 05:52 Temperature 98.0 F Pulse Rate 99 Respiratory 20 20 Rate Blood Pressure 140/56 (mmHg) O2 Sat by Pulse 97 96 Oximetry 04/07/19 04/07/19 07:50 08:21 Temperature 97.4 F Pulse Rate 98 Respiratory 16 18 Rate Blood Pressure 141/71 (mmHg) O2 Sat by Pulse 96 Oximetry Oxygen Devices in Use Now: Nasal Cannula Appearance: 63 yo f in nAD, AAOx3 Eyes: No Scleral Icterus, PERRLA Ears/Nose/Mouth/Throat: NL Teeth, Lips, Gums, Mucous Membranes Moist Neck: NL Appearance and Movements; NL JVP, Trachea Midline Respiratory: Symmetrical Chest Expansion and Respiratory Effort, - - crackles at b/l bases Cardiovascular: NL Sounds; No Murmurs; No JVD, RRR Abdominal: No Hepatosplenomegaly, - - left flank tenderness-mild Lymphatic: No Cervical Adenopathy Extremities: No Clubbing, Cyanosis, - - mild ankle rachna b/l Skin: No Rash or Ulcers, - - left leg wound not uncovered today Neurological: Alert and Oriented x 3, NL Muscle Strength and Tone Result Diagrams: 04/07/19 06:12 04/07/19 06:12 Microbiology and Other Data: Microbiology 04/05/19 14:54 Urine Culture - Final Urine No Growth (<1,000 CFU/mL) Assess/Plan/Problems-Billing Assessment: 63 yo F with h/o PV(on hydroxyurea -held 4 weeks ago),Raynaud's, HTN , DM2, chronic let leg ulcer who presents with SOB, found to have b/l hydronephrosis. Dx with with PNA and diffuse interstitial lung changes noted on CT 03/28/19- finished a course of antibiotics - Patient Problems (1) Hydronephrosis Comment: due to stones, b/l s/p cystoscopy and b/l stent placement by Dr. Purvis on 04/06/19 cont Ceftriaxone Marshall out today. cont Ceftriaxone for now (2) CKD (chronic kidney disease) stage 3, GFR 30-59 ml/min Comment: with worsening despite cystoscopy yesterday will monitor for tomorrow, cont gentle IVF (3) DM2 (diabetes mellitus, type 2) Comment: cont iSS and Lantus (4) HTN (hypertension) Comment: cont Cartia. holding lisinopril and furosemide BP controlled (5) Polycythemia vera Comment: Off hydroxyurea x 4 weeks(stopped by DR. Castellanos to allow healing of left leg wound) Marked leukocystosis likely related to PV and no hydroxyurea (6) DVT prophylaxis Comment: will stop lovenox due to hematuria, cont SCD's Status and Disposition: inpatient
[2019-04-07] MEDS: Docusate CAP* 100 MG PO SCH ×2 (09:49→20:17)
[2019-04-07] MEDS: Magnesium Hydroxide LIQ* 30 ML UDC PO SCH ×2 (09:49→20:18)
[2019-04-07] MEDS: cefTRIAXone(*) 1 GM in NS 0.9% 50 ML* 50 ML IVPB SCH (17:01)
[2019-04-07] MEDS: Insulin GLARGINE(*) 1 UNITS UNIT SUBCUT SCH (20:18)
[2019-04-07] MEDS: Morphine INJ* 4 MG/ML 1 ML SYRINGE (NEW SYRINGE VERSION) IV PRN (20:24)
[2019-04-08] MEDS: Levothyroxine TAB* 75 MCG TAB PO SCH (05:57)
[2019-04-08 07:15] LABS: ABS Basophils 0.1 10^3/ul (0-0.2); ABS Lymphocytes 0.5 10^3/ul (1.0-4.8); ABS Monocytes 0.5 10^3/ul (0-0.8); ABS Neutrophils 19.4 10^3/ul (1.5-7.7); ABS Nucleated RBC 0.1 10^3/ul; Eosinophil % 0.2 %; Hematocrit 33 % (35-47); Hemoglobin 10.6 g/dL (12.0-16.0); Lymphocyte % 2.3 %; Mean Corpuscular HGB Conc 32 g/dL (31-36); Mean Corpuscular Hemoglobin 32 pg (27-31); Mean Corpuscular Volume 99 fL (80-97); Nucleated Red Blood Cells % 0.7; Platelet Count 406 10^3/uL (150-450); Red Blood Count 3.32 10^6 /uL (3.70-4.87); Red Cell Distribution Width 20 % (10-15); White Blood Count 20.5 10^3/uL (3.5-10.8)
[2019-04-08 07:30] LABS: Calcium 7.4 mg/dL (8.6-10.3); Potassium 4.4 mmol/L (3.5-5.0)
[2019-04-08 07:35] LABS: BUN/Creatinine Ratio 10.7 (8-20); EGFR African American 21.5 (>60); EGFR Non-African American 17.7 (>60)
[2019-04-08] MEDS: PIOGLITAZONE 15 MG PO SCH (09:03)
[2019-04-08] MEDS: Desipramine TAB* 50 MG PO SCH (09:03)
[2019-04-08] MEDS: Docusate CAP* 100 MG PO SCH ×2 (09:04→22:18)
[2019-04-08] MEDS: Insulin LISPRO* 1 UNITS UNIT SUBCUT SCH ×4 (09:04→22:18)
[2019-04-08] MEDS: Diltiazem CD CAP* 120 MG PO SCH (09:04)
[2019-04-08] MEDS: Diltiazem CD CAP* 180 MG PO SCH (09:04)
[2019-04-08] MEDS: Aspirin EC TAB* 81 MG TAB.EC PO SCH (09:04)
[2019-04-08] MEDS: Pantoprazole TAB * 40 MG TAB PO SCH ×2 (09:04→22:18)
[2019-04-08] MEDS: Magnesium Hydroxide LIQ* 30 ML UDC PO SCH ×2 (09:06→22:18)
[2019-04-08] MEDS: oxyCODONE/Acetamin 5/325 MG* TAB PO PRN ×3 (11:31→22:18)
--- NOTE | 2019-04-08 11:55 | PN ---
Subjective Date of Service: 04/08/19 Interval History: pt has marked hematuria and has mild b/l flank pain. Also noted generalized edema in all 4 extremities Objective Active Medications: Acetaminophen (Tylenol Tab*) 650 mg PO Q4H PRN PRN Reason: MILD PAIN or TEMP > 100.4 Aspirin (Aspirin Ec Tab*) 81 mg PO DAILY [facility] Last Admin: 04/08/19 09:04 Dose: 81 mg Desipramine HCl (Norpramin Tab*) 50 mg PO DAILY [facility] Last Admin: 04/08/19 09:03 Dose: 50 mg Dextrose (Dextrose 50% Vial 50 Ml*) 25 ml IV PUSH .FOR FS < 60 - SS PRN PRN Reason: FS < 60 Diltiazem HCl (Cardizem Cd Cap*) 180 mg PO DAILY [facility] Last Admin: 04/08/19 09:04 Dose: 180 mg Diltiazem HCl (Cardizem Cd Cap*) 120 mg PO DAILY [facility] Last Admin: 04/08/19 09:04 Dose: 120 mg Docusate Sodium (Colace Cap*) 100 mg PO BID [facility] Last Admin: 04/08/19 09:04 Dose: 100 mg Hydralazine HCl (Apresoline Iv*) 10 mg IV SLOW PU Q6H PRN PRN Reason: SYSTOLIC BP GREATER THAN: Ceftriaxone Sodium 1 gm/ (Sodium Chloride) 50 mls @ 100 mls/hr IVPB Q24H [facility] Last Admin: 04/07/19 17:01 Dose: 100 mls/hr Insulin Glargine (Lantus(*)) 5 units SUBCUT Q24H [facility] Last Admin: 04/07/19 20:18 Dose: 5 units Insulin Human Lispro (Humalog*) 0 units SUBCUT ACHS [facility]; Protocol Last Admin: 04/08/19 09:04 Dose: 2 unit Levothyroxine Sodium (Synthroid Tab*) 75 mcg PO DAILY@0600 [facility] Last Admin: 04/08/19 05:57 Dose: 75 mcg Magnesium Hydroxide (Milk Of Magnesia Liq*) 30 ml PO BID [facility] Last Admin: 04/08/19 09:06 Dose: 30 ml Magnesium Hydroxide (Milk Of Magnesia Liq*) 30 ml PO BID PRN PRN Reason: CONSTIPATION Morphine Sulfate (Morphine Inj (Syringe)*) 4 mg IV Q2H PRN PRN Reason: PAIN - SEVERE Last Admin: 04/07/19 20:24 Dose: 4 mg Ondansetron HCl (Zofran Inj*) 4 mg IV Q4H PRN PRN Reason: NAUSEA/VOMITING Oxycodone/Acetaminophen (Percocet 5/325 Tab*) 1 tab PO Q4H PRN PRN Reason: PAIN - MODERATE Last Admin: 04/08/19 11:31 Dose: 1 tab Pantoprazole Sodium (Protonix Tab*) 40 mg PO BID [facility] Last Admin: 04/08/19 09:04 Dose: 40 mg Pioglitazone HCl (Actos Tab*) 45 mg PO DAILY [facility] Last Admin: 04/08/19 09:03 Dose: 45 mg Polyethylene Glycol/Electrolytes (Miralax*) 17 gm PO DAILY PRN PRN Reason: CONSTIPATION Senna (Senokot 8.6 Mg Tab*) 1 tab PO BEDTIME PRN PRN Reason: CONSTIPATION Vital Signs - 8 hr 04/08/19 04/08/19 04/08/19 05:27 08:01 11:31 Temperature 97.9 F Pulse Rate 88 Respiratory 18 20 Rate Blood Pressure 138/56 (mmHg) O2 Sat by Pulse 97 98 Oximetry Oxygen Devices in Use Now: Nasal Cannula Appearance: 63 yo f in nAD, aAOx3 Eyes: No Scleral Icterus, PERRLA Ears/Nose/Mouth/Throat: NL Teeth, Lips, Gums, Mucous Membranes Moist Neck: NL Appearance and Movements; NL JVP, No Thyroid Enlargement, Masses Respiratory: Symmetrical Chest Expansion and Respiratory Effort, - - crackles at b/l bases Cardiovascular: NL Sounds; No Murmurs; No JVD, RRR Abdominal: NL Sounds; No Tenderness; No Distention, - - mild b/l flank tenderness Lymphatic: No Cervical Adenopathy Extremities: No Clubbing, Cyanosis, - - b/l LE's edema +1, LUE edema +1 Skin: - - left leg ulcer-covered with eschar at 2 cm Neurological: Alert and Oriented x 3, NL Muscle Strength and Tone Result Diagrams: 04/08/19 06:54 04/08/19 06:53 Microbiology and Other Data: Microbiology 04/05/19 14:54 Urine Culture - Final Urine No Growth (<1,000 CFU/mL) Assess/Plan/Problems-Billing Assessment: 63 yo F with h/o PV(on hydroxyurea -held 4 weeks ago),Raynaud's, HTN , DM2, chronic let leg ulcer who presents with SOB, found to have b/l hydronephrosis. Dx with with PNA and diffuse interstitial lung changes noted on CT 03/28/19- finished a course of antibiotics - Patient Problems (1) Hydronephrosis Comment: due to stones, b/l s/p cystoscopy and b/l stent placement by Dr. Purvis on 04/06/19 cont Ceftriaxone due to hematuria, although cx NTD Marshall out post cystoscopy on 04/07/19. (2) CKD (chronic kidney disease) stage 3, GFR 30-59 ml/min Comment: with acute renal failure despite cystoscopy on 04/06/19 d/x Dr. Purvis. Aslo curbsided nephrology although they're not information assurance this weekend. Stop IVF due to edema. Get renal and bladder US. Check UA and micoroalbumin urine. GN w/up: dsDNA, ANYA, Heb, Hep c antb, Complement 3and 4, SPEP,[place] and Lambda free light chains- ordered. (3) DM2 (diabetes mellitus, type 2) Comment: cont iSS and Lantus (4) HTN (hypertension) Comment: cont Cartia. holding lisinopril and furosemide BP controlled (5) Polycythemia vera Comment: Off hydroxyurea x 4 weeks(stopped by DR. 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
[2019-04-08 13:55] LABS: Hepatitis B Surface Ab Not Immune (Immune); Hepatitis C Antibody Negative (Negative)
[2019-04-08 14:31] LABS: Urine Appearance Turbid; Urine Color Red
[2019-04-08 14:39] LABS: Urine Bacteria Absent (Absent); Urine Red Blood Cell 3+(>10/hpf) (Absent); Urine Specific Gravity 1.017 (1.010-1.030); Urine White Blood Cell 3+(>20/hpf) (Absent)
[2019-04-08 14:47] LABS: Urine Creatinine 113.23 mg/dL; Urine Creatinine Concentration 113.23 mg/dL
[2019-04-08 15:06] LABS: UR Microalbumin (mg/L) 1438.9 mg/L; Urine Microalbumin/Creatinine 1270.7 (<31)
[2019-04-08] MEDS: cefTRIAXone(*) 1 GM in NS 0.9% 50 ML* 50 ML IVPB SCH (18:04)
[2019-04-08] MEDS: Insulin GLARGINE(*) 1 UNITS UNIT SUBCUT SCH (22:19)
[2019-04-09] MEDS: Calcium Carbonate CHEW TAB* 500 MG (TUMS) PO PRN ×2 (04:02→15:39)
[2019-04-09] MEDS: Levothyroxine TAB* 75 MCG TAB PO SCH (05:32)
[2019-04-09] MEDS: oxyCODONE/Acetamin 5/325 MG* TAB PO PRN ×2 (05:34→15:39)
[2019-04-09 06:51] LABS: Hematocrit 34 % (35-47); Hemoglobin 11.2 g/dL (12.0-16.0); Mean Corpuscular HGB Conc 33 g/dL (31-36); Mean Corpuscular Hemoglobin 33 pg (27-31); Mean Corpuscular Volume 98 fL (80-97); Mean Platelet Volume 9.6 fL (7.4-10.4); Platelet Count 424 10^3/uL (150-450); Red Blood Count 3.45 10^6 /uL (3.70-4.87); Red Cell Distribution Width 20 % (10-15); White Blood Count 22.5 10^3/uL (3.5-10.8)
[2019-04-09 07:05] LABS: BUN/Creatinine Ratio 11.6 (8-20); Calcium 7.8 mg/dL (8.6-10.3); EGFR African American 20.2 (>60); EGFR Non-African American 16.7 (>60); Potassium 4.4 mmol/L (3.5-5.0)
[2019-04-09 07:46] LABS: C Reactive Protein 69.73 mg/L (<8.01)
[2019-04-09] MEDS: Morphine INJ* 4 MG/ML 1 ML SYRINGE (NEW SYRINGE VERSION) IV PRN ×2 (07:54→19:42)
[2019-04-09] MEDS: Diltiazem CD CAP* 180 MG PO SCH (08:02)
[2019-04-09] MEDS: Diltiazem CD CAP* 120 MG PO SCH (08:03)
[2019-04-09] MEDS: Aspirin EC TAB* 81 MG TAB.EC PO SCH (08:03)
[2019-04-09] MEDS: Magnesium Hydroxide LIQ* 30 ML UDC PO SCH ×2 (08:05→19:43)
[2019-04-09] MEDS: Insulin LISPRO* 1 UNITS UNIT SUBCUT SCH ×4 (08:06→19:43)
[2019-04-09] MEDS: Docusate CAP* 100 MG PO SCH ×2 (08:06→19:42)
[2019-04-09] MEDS ORDERED: Magnesium CITRATE* 300 ML BTL PO ONE (09:05)
[2019-04-09] MEDS: Pantoprazole TAB * 40 MG TAB PO SCH ×2 (09:10→19:43)
[2019-04-09] MEDS: Desipramine TAB* 50 MG PO SCH (09:10)
--- NOTE | 2019-04-09 09:11 | PN ---
Subjective Date of Service: 04/09/19 Interval History: Pt c/o b/l flank pain and no BM x 5 days. Tolerating food without any problems, denies nausea Hematuria continues Objective Active Medications: Acetaminophen (Tylenol Tab*) 650 mg PO Q4H PRN PRN Reason: MILD PAIN or TEMP > 100.4 Aspirin (Aspirin Ec Tab*) 81 mg PO DAILY [facility] Last Admin: 04/09/19 08:03 Dose: 81 mg Calcium Carbonate (Tums*) 500 mg PO DAILY PRN PRN Reason: HEARTBURN Last Admin: 04/09/19 04:02 Dose: 500 mg Desipramine HCl (Norpramin Tab*) 50 mg PO DAILY [facility] Last Admin: 04/08/19 09:03 Dose: 50 mg Dextrose (Dextrose 50% Vial 50 Ml*) 25 ml IV PUSH .FOR FS < 60 - SS PRN PRN Reason: FS < 60 Diltiazem HCl (Cardizem Cd Cap*) 180 mg PO DAILY [facility] Last Admin: 04/09/19 08:02 Dose: 180 mg Diltiazem HCl (Cardizem Cd Cap*) 120 mg PO DAILY [facility] Last Admin: 04/09/19 08:03 Dose: 120 mg Docusate Sodium (Colace Cap*) 100 mg PO BID [facility] Last Admin: 04/09/19 08:06 Dose: 100 mg Hydralazine HCl (Apresoline Iv*) 10 mg IV SLOW PU Q6H PRN PRN Reason: SYSTOLIC BP GREATER THAN: Ceftriaxone Sodium 1 gm/ (Sodium Chloride) 50 mls @ 100 mls/hr IVPB Q24H [facility] Last Admin: 04/08/19 18:04 Dose: 100 mls/hr Insulin Glargine (Lantus(*)) 5 units SUBCUT Q24H [facility] Last Admin: 04/08/19 22:19 Dose: 5 units Insulin Human Lispro (Humalog*) 0 units SUBCUT ACHS [facility]; Protocol Last Admin: 04/09/19 08:06 Dose: 2 unit Levothyroxine Sodium (Synthroid Tab*) 75 mcg PO DAILY@0600 [facility] Last Admin: 04/09/19 05:32 Dose: 75 mcg Magnesium Hydroxide (Milk Of Magnesia Liq*) 30 ml PO BID [facility] Last Admin: 04/09/19 08:05 Dose: Not Given Magnesium Hydroxide (Milk Of Magnesia Liq*) 30 ml PO BID PRN PRN Reason: CONSTIPATION Morphine Sulfate (Morphine Inj (Syringe)*) 4 mg IV Q2H PRN PRN Reason: PAIN - SEVERE Last Admin: 04/09/19 07:54 Dose: 4 mg Ondansetron HCl (Zofran Inj*) 4 mg IV Q4H PRN PRN Reason: NAUSEA/VOMITING Oxycodone/Acetaminophen (Percocet 5/325 Tab*) 1 tab PO Q4H PRN PRN Reason: PAIN - MODERATE Last Admin: 04/09/19 05:34 Dose: 1 tab Pantoprazole Sodium (Protonix Tab*) 40 mg PO BID [facility] Last Admin: 04/08/19 22:18 Dose: 40 mg Polyethylene Glycol/Electrolytes (Miralax*) 17 gm PO DAILY PRN PRN Reason: CONSTIPATION Senna (Senokot 8.6 Mg Tab*) 1 tab PO BEDTIME PRN PRN Reason: CONSTIPATION Vital Signs - 8 hr 04/09/19 04/09/19 04/09/19 01:28 03:21 03:54 Temperature 97.3 F Pulse Rate 87 Respiratory 16 18 Rate Blood Pressure 143/64 (mmHg) O2 Sat by Pulse 98 98 Oximetry 04/09/19 04/09/19 04/09/19 05:34 07:54 08:00 Temperature 97.0 F Pulse Rate 91 Respiratory 20 16 18 Rate Blood Pressure 143/55 (mmHg) O2 Sat by Pulse 99 Oximetry Oxygen Devices in Use Now: Nasal Cannula Appearance: 63 yo F in nAD, AAOx3 Eyes: No Scleral Icterus, PERRLA Ears/Nose/Mouth/Throat: NL Teeth, Lips, Gums, Mucous Membranes Moist Neck: NL Appearance and Movements; NL JVP, Trachea Midline Respiratory: Symmetrical Chest Expansion and Respiratory Effort, - - crackles at b/l bases Cardiovascular: NL Sounds; No Murmurs; No JVD, RRR Abdominal: No Hepatosplenomegaly, - - distended, tympanic, soft, mild tenderness b/l flanks Lymphatic: No Cervical Adenopathy Extremities: No Clubbing, Cyanosis, - - +1 pedale edema b/l, left leg ulcer not uncovered today Skin: No Nodules or Sclerosis Neurological: Alert and Oriented x 3, NL Muscle Strength and Tone Result Diagrams: 04/09/19 06:38 04/09/19 06:38 Microbiology and Other Data: Microbiology 04/05/19 14:54 Urine Culture - Final Urine No Growth (<1,000 CFU/mL) Assess/Plan/Problems-Billing Assessment: 63 yo F with h/o PV(on hydroxyurea -held 4 weeks ago),Raynaud's, HTN , DM2, chronic let leg ulcer who presents with SOB, found to have b/l hydronephrosis. Dx with with PNA and diffuse interstitial lung changes noted on CT 03/28/19- finished a course of antibiotics - Patient Problems (1) Hydronephrosis Comment: due to stones, b/l s/p cystoscopy and b/l stent placement by Dr. Purvis on 04/06/19 cont Ceftriaxone due to hematuria, although cx NTD Marshall out post cystoscopy on 04/07/19. Hematuria post cystoscopy continues-likely due to hemorrhagic cystitis (2) CKD (chronic kidney disease) stage 3, GFR 30-59 ml/min Comment: with acute renal failure despite cystoscopy on 04/06/19 d/x Dr. Purvis. 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 Stopped IVF due to edema Renal and bladder US shows enlarged renal calyx on r. Check UA shows gross hematuria and micoroalbumin urine is high. GN w/up: dsDNA, ANYA, Hep B (neg), Hep c antb(neg), Complement 3and 4, SPEP,Ransom and Lambda free light chains- ordered. ANCA neg last hosp stay 03/28/19 (3) DM2 (diabetes mellitus, type 2) Comment: cont iSS and Lantus (4) HTN (hypertension) Comment: cont Cartia. holding lisinopril and furosemide BP controlled (5) Polycythemia vera Comment: Off hydroxyurea x 4 weeks(stopped by DR. 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
[2019-04-09] MEDS ORDERED: Bisacodyl SUPP* 10 MG SUPP PR ONE (15:49)
[2019-04-09] MEDS ORDERED: Bisacodyl SUPP* 10 MG SUPP PR PRN (15:49)
[2019-04-09] MEDS: cefTRIAXone(*) 1 GM in NS 0.9% 50 ML* 50 ML IVPB SCH (17:30)
[2019-04-09] MEDS: Insulin GLARGINE(*) 1 UNITS UNIT SUBCUT SCH (19:44)
[2019-04-10] MEDS: Morphine INJ* 4 MG/ML 1 ML SYRINGE (NEW SYRINGE VERSION) IV PRN ×2 (01:41→21:12)
[2019-04-10] MEDS: Levothyroxine TAB* 75 MCG TAB PO SCH (06:07)
[2019-04-10 06:18] LABS: Hematocrit 36 % (35-47); Hemoglobin 11.5 g/dL (12.0-16.0); Mean Corpuscular HGB Conc 32 g/dL (31-36); Mean Corpuscular Hemoglobin 32 pg (27-31); Mean Corpuscular Volume 99 fL (80-97); Mean Platelet Volume 9.7 fL (7.4-10.4); Platelet Count 471 10^3/uL (150-450); Red Blood Count 3.64 10^6 /uL (3.70-4.87); Red Cell Distribution Width 21 % (10-15); White Blood Count 23.1 10^3/uL (3.5-10.8)
[2019-04-10 06:20] LABS: ABS Basophils 0.1 10^3/ul (0-0.2); ABS Eosinophils 0.1 10^3/ul (0-0.6); ABS Lymphocytes 0.5 10^3/ul (1.0-4.8); ABS Monocytes 0.7 10^3/ul (0-0.8); ABS Neutrophils 21.7 10^3/ul (1.5-7.7); ABS Nucleated RBC 0.3 10^3/ul; Eosinophil % 0.2 %; Lymphocyte % 2.3 %; Nucleated Red Blood Cells % 1.1
[2019-04-10 06:35] LABS: BUN/Creatinine Ratio 10.3 (8-20); C Reactive Protein 82.27 mg/L (<8.01); EGFR African American 14.6 (>60); EGFR Non-African American 12.1 (>60)
[2019-04-10] MEDS: oxyCODONE/Acetamin 5/325 MG* TAB PO PRN ×2 (07:44→13:22)
[2019-04-10] MEDS: Diltiazem CD CAP* 180 MG PO SCH (07:45)
[2019-04-10] MEDS: Diltiazem CD CAP* 120 MG PO SCH (07:45)
[2019-04-10] MEDS: Docusate CAP* 100 MG PO SCH ×2 (07:45→21:10)
[2019-04-10] MEDS: Aspirin EC TAB* 81 MG TAB.EC PO SCH (07:45)
[2019-04-10] MEDS: Insulin LISPRO* 1 UNITS UNIT SUBCUT SCH ×4 (07:46→20:29)
[2019-04-10] MEDS: Pantoprazole TAB * 40 MG TAB PO SCH ×2 (07:46→21:10)
[2019-04-10] MEDS: Magnesium Hydroxide LIQ* 30 ML UDC PO SCH ×2 (07:46→20:30)
[2019-04-10] MEDS: Desipramine TAB* 50 MG PO SCH (07:49)
[2019-04-10 09:22] LABS: Uric Acid 16.2 mg/dL (2.3-6.6)
--- NOTE | 2019-04-10 10:24 | PN ---
Subjective Date of Service: 04/10/19 Interval History: pt c/o r flank pain more than left-unchanged for the past 2 days. constipation resolved today after 6 days. Still has hematuria, but noted low UO. leg edema improving, but left arm edema still present Objective Active Medications: Acetaminophen (Tylenol Tab*) 650 mg PO Q4H PRN PRN Reason: MILD PAIN or TEMP > 100.4 Aspirin (Aspirin Ec Tab*) 81 mg PO DAILY [facility] Last Admin: 04/10/19 07:45 Dose: 81 mg Bisacodyl (Dulcolax Supp*) 10 mg HI DAILY PRN PRN Reason: CONSTIPATION Calcium Carbonate (Tums*) 500 mg PO DAILY PRN PRN Reason: HEARTBURN Last Admin: 04/09/19 15:39 Dose: 500 mg Desipramine HCl (Norpramin Tab*) 50 mg PO DAILY [facility] Last Admin: 04/10/19 07:49 Dose: 50 mg Dextrose (Dextrose 50% Vial 50 Ml*) 25 ml IV PUSH .FOR FS < 60 - SS PRN PRN Reason: FS < 60 Diltiazem HCl (Cardizem Cd Cap*) 180 mg PO DAILY [facility] Last Admin: 04/10/19 07:45 Dose: 180 mg Diltiazem HCl (Cardizem Cd Cap*) 120 mg PO DAILY [facility] Last Admin: 04/10/19 07:45 Dose: 120 mg Docusate Sodium (Colace Cap*) 100 mg PO BID [facility] Last Admin: 04/10/19 07:45 Dose: 100 mg Hydralazine HCl (Apresoline Iv*) 10 mg IV SLOW PU Q6H PRN PRN Reason: SYSTOLIC BP GREATER THAN: Ceftriaxone Sodium 1 gm/ (Sodium Chloride) 50 mls @ 100 mls/hr IVPB Q24H [facility] Last Admin: 04/09/19 17:30 Dose: 100 mls/hr Insulin Glargine (Lantus(*)) 5 units SUBCUT Q24H [facility] Last Admin: 04/09/19 19:44 Dose: 5 units Insulin Human Lispro (Humalog*) 0 units SUBCUT [facility]; Protocol Last Admin: 04/10/19 07:46 Dose: 2 unit Levothyroxine Sodium (Synthroid Tab*) 75 mcg PO DAILY@0600 [facility] Last Admin: 04/10/19 06:07 Dose: 75 mcg Magnesium Hydroxide (Milk Of Magnesia Liq*) 30 ml PO BID [facility] Last Admin: 04/10/19 07:46 Dose: 30 ml Magnesium Hydroxide (Milk Of Magnesia Liq*) 30 ml PO BID PRN PRN Reason: CONSTIPATION Morphine Sulfate (Morphine Inj (Syringe)*) 4 mg IV Q2H PRN PRN Reason: PAIN - SEVERE Last Admin: 04/10/19 01:41 Dose: 4 mg Ondansetron HCl (Zofran Inj*) 4 mg IV Q4H PRN PRN Reason: NAUSEA/VOMITING Oxycodone/Acetaminophen (Percocet 5/325 Tab*) 1 tab PO Q4H PRN PRN Reason: PAIN - MODERATE Last Admin: 04/10/19 07:44 Dose: 1 tab Pantoprazole Sodium (Protonix Tab*) 40 mg PO BID [facility] Last Admin: 04/10/19 07:46 Dose: 40 mg Polyethylene Glycol/Electrolytes (Miralax*) 17 gm PO DAILY PRN PRN Reason: CONSTIPATION Last Admin: 04/10/19 07:45 Dose: 17 gm Senna (Senokot 8.6 Mg Tab*) 1 tab PO BEDTIME PRN PRN Reason: CONSTIPATION Vital Signs - 8 hr 04/10/19 04/10/19 04/10/19 03:15 03:49 07:15 Temperature 98.0 F 97.4 F Pulse Rate 97 99 Respiratory 16 17 18 Rate Blood Pressure 143/61 137/54 (mmHg) O2 Sat by Pulse 95 94 Oximetry 04/10/19 04/10/19 07:44 07:53 Temperature Pulse Rate Respiratory 20 20 Rate Blood Pressure (mmHg) O2 Sat by Pulse 94 Oximetry Oxygen Devices in Use Now: Nasal Cannula Appearance: 63 yo F in nAD, AAOx3 Eyes: No Scleral Icterus, PERRLA Ears/Nose/Mouth/Throat: NL Teeth, Lips, Gums, Mucous Membranes Moist Neck: NL Appearance and Movements; NL JVP, Trachea Midline Respiratory: Symmetrical Chest Expansion and Respiratory Effort, - - crackles b/ l lower to mid lungs Cardiovascular: NL Sounds; No Murmurs; No JVD, RRR Abdominal: - - mild r flank tenderness Lymphatic: No Cervical Adenopathy Extremities: No Clubbing, Cyanosis, - - left arm and hand edema, b/l ankle edema resolved Skin: No Nodules or Sclerosis, - - small ulcer above left ankle covered with eschar Result Diagrams: 04/10/19 06:05 04/10/19 06:05 Microbiology and Other Data: Microbiology 04/05/19 14:54 Urine Culture - Final Urine No Growth (<1,000 CFU/mL) Assess/Plan/Problems-Billing Assessment: 63 yo F with h/o PV(on hydroxyurea -held 4 weeks ago),Raynaud's, HTN , DM2, chronic let leg ulcer who presents with SOB, found to have b/l hydronephrosis. Dx with with PNA and diffuse interstitial lung changes noted on CT 03/28/19- finished a course of antibiotics - Patient Problems (1) Hydronephrosis Comment: due to stones, b/l s/p cystoscopy and b/l stent placement by Dr. Purvis on 04/06/19 cont Ceftriaxone due to hematuria, although cx NTD Marshall out post cystoscopy on 04/07/19. Hematuria post cystoscopy continues-likely due to hemorrhagic cystitis (2) CKD (chronic kidney disease) stage 3, GFR 30-59 ml/min Comment: with acute renal failure despite cystoscopy on 04/06/19 d/x Dr. Puvris. 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 Stopped IVF due to edema Renal and bladder US shows enlarged renal calyx on R. D/w Dr. Connolly who will see pt today. Renal artery US ordered as well as uric acid level UA shows gross hematuria and micoroalbumin urine is high. GN w/up: dsDNA, ANYA, Hep B (neg), Hep c antb(neg), Complement 3and 4, SPEP,Natural Steps and Lambda free light chains- ordered. ANCA neg last hosp stay 03/28/19 (3) DM2 (diabetes mellitus, type 2) Comment: cont iSS and Lantus (4) HTN (hypertension) Comment: cont Cartia. holding lisinopril and furosemide BP controlled (5) Polycythemia vera Comment: Off hydroxyurea x 4 weeks(stopped by DR. 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
[2019-04-10] MEDS: Collagenase 250 UNITS/GM OINT* 1 APPLIC OINT TOPICAL SCH (12:58)
--- NOTE | 2019-04-10 13:06 | CONSULT ---
Subjective Date of Service: 04/10/19 Interval History: Ms. Diaz is a 63 yo female with PMH significant for polycythemia vera, DM2, GERD, HTN, hypothyroidism, herniated disk x2, Raynaud's depression, GOUT, gastric ulcer, anemia, and JAK2 plus ET mutation; who presented to the emergency room with complaints of right flank pain and hematuria. She was admitted to the hospital for bilateral nephrolithiasis and hydronephrosis. Patient presented to the hospital with a known venous stasis ulcer to the left LE. She follows with the wound clinic outpatient, and has been treating the area with Unna boots. This wound has been present since October 2018, when she hit her leg on a prop attendant. She last saw the Wound Clinic on 03/31/19 and was instructed to remove the Unna boot on 04/07/19. She removed the Unna boot prior to that due to discomfort. NSG staff have been covering the area with gauze. Patient seen and examined at bedside. Verbal consent obtained for wound consultation and photograph. Family History: Unchanged from Admission Social History: Unchanged from Admission Past Medical History: Unchanged from Admission Review of Systems - Measurements Intake and Output: Intake and Output Last 24 Hours 04/08/19 04/09/19 04/10/19 04/11/19 06:59 06:59 06:59 06:59 Intake Total 3013 3780 840 Output Total 200 110 300 Balance 2813 3670 540 Intake: IV Fluids 1972 300 NS (0.9%) 1973 300 IVPB 100 ABX - CEFTRIAXONE 100 Oral 940 3480 840 Output: Urine 200 110 300 Other: Estimated Void Small Small # Bowel Movements 1 Estimated Stool Amount Small # Voids 0 0 - Review of Systems Constitutional Symptoms: Negative: Fever, Other - Chills Dermatology: Positive: Other - Ulcer to left LE Endocrinology: Positive: Diabetes Mellitus Objective Active Medications: Acetaminophen (Tylenol Tab*) 650 mg PO Q4H PRN Reason: MILD PAIN or TEMP > 100.4 Aspirin (Aspirin Ec Tab*) 81 mg PO DAILY [facility] Bisacodyl (Dulcolax Supp*) 10 mg MT DAILY PRN Reason: CONSTIPATION Calcium Carbonate (Tums*) 500 mg PO DAILY PRN Reason: HEARTBURN Collagenase (Santyl 250 Units/Gm Oint*) 1 applic TOPICAL DAILY [facility] Desipramine HCl (Norpramin Tab*) 50 mg PO DAILY [facility] Dextrose (Dextrose 50% Vial 50 Ml*) 25 ml IV PUSH PRN Reason: FS < 60 Diltiazem HCl (Cardizem Cd Cap*) 180 mg PO DAILY [facility] Diltiazem HCl (Cardizem Cd Cap*) 120 mg PO DAILY [facility] Docusate Sodium (Colace Cap*) 100 mg PO BID [facility] Hydralazine HCl (Apresoline Iv*) 10 mg IV SLOW PU Q6H PRN Reason: SYSTOLIC BP GREATER THAN: Ceftriaxone Sodium 1 gm/ (Sodium Chloride) 50 mls @ 100 mls/hr IVPB Q24H [facility] Insulin Glargine (Lantus(*)) 5 units SUBCUT Q24H [facility] Insulin Human Lispro (Humalog*) 0 units SUBCUT ACHS [facility]; Protocol Levothyroxine Sodium (Synthroid Tab*) 75 mcg PO DAILY@0600 [facility] Magnesium Hydroxide (Milk Of Magnesia Liq*) 30 ml PO BID [facility] Magnesium Hydroxide (Milk Of Magnesia Liq*) 30 ml PO BID PRN Reason: CONSTIPATION Morphine Sulfate (Morphine Inj (Syringe)*) 4 mg IV Q2H PRN Reason: PAIN - SEVERE Ondansetron HCl (Zofran Inj*) 4 mg IV Q4H PRN Reason: NAUSEA/VOMITING Oxycodone/Acetaminophen (Percocet 5/325 Tab*) 1 tab PO Q4H PRN Reason: PAIN - MODERATE Pantoprazole Sodium (Protonix Tab*) 40 mg PO BID [facility] Polyethylene Glycol/Electrolytes (Miralax*) 17 gm PO DAILY PRNReason: CONSTIPATION Rasburicase (Elitek) 16 mg IVPB ONCE ONE Stop: 04/10/19 14:01 Senna (Senokot 8.6 Mg Tab*) 1 tab PO BEDTIME PRN Reason: CONSTIPATION Vital Signs 04/10/19 04/10/19 04/10/19 07:15 07:44 07:53 Temperature 97.4 F Pulse Rate 99 Respiratory 18 20 20 Rate Blood Pressure 137/54 (mmHg) O2 Sat by Pulse 94 94 Oximetry Oxygen Devices in Use Now: Nasal Cannula Appearance: NAD, laying in bed Ears/Nose/Mouth/Throat: Mucous Membranes Moist Respiratory: Symmetrical Chest Expansion and Respiratory Effort Extremities: - - Left DP pulse 2+, Left foot with 1-2+ edema Skin: - - See skin note below Neurological: Alert and Oriented x 3 Nutrition: Taking PO's Result Diagrams: 04/16/19 05:39 04/16/19 05:39 Additional Lab and Data: Above labs were pulled into the note, when the note was edited prior to signing. Please see below for labs from the day of consultation. Laboratory Tests 04/05/19 04/05/19 04/10/19 14:47 14:47 06:05 WBC 23.1 H Hgb 11.5 L Hct 36 Plt Count 471 H Sodium Potassium Chloride Carbon Dioxide BUN Creatinine Glucose Hemoglobin A1c 8.7 H Total Protein 5.9 L Albumin 3.2 04/10/19 06:05 WBC Hgb Hct Plt Count Sodium 130 L Potassium 5.0 Chloride 102 Carbon Dioxide 20 L BUN 39 H Creatinine 3.77 H Glucose 177 H Hemoglobin A1c Total Protein Albumin Skin Deviation Note - Skin Deviation Findings Left lateral lower leg - There is a venous ulcer present, measures 1 cm x 1.3 cm x 0.2 cm. The wound base is 100% yellow slough. There is scant serous drainage. The periwound with mild blanchable erythema. The surrounding skin is intact. Wound Problem/Plan Assessment: Ms. Diaz is a 63 yo female with PMH significant for polycythemia vera, DM2, GERD, HTN, hypothyroidism, herniated disk x2, Raynaud's depression, GOUT, gastric ulcer, anemia, and JAK2 plus ET mutation; who presented to the emergency room with complaints of right flank pain and hematuria. She was admitted to the hospital for bilateral nephrolithiasis and hydronephrosis. Patient presented to the hospital with a known venous stasis ulcer to the left LE. 1. Left LE venous stasis ulcer. Present since October 2018, caused initially by trauma. Recommend washing with saline with DSG changes. Recommend applying Santyl to the open wound with slough, followed by non-adherent dressing (i.e. Telfa), followed by rolled gauze. Keep leg elevated as able. Consider obtaining ABIs to evaluate vascular status. She should return to following with the wound clinic at discharge. 2. DM2. HgA1C was 8.7 during this admission. Maintain good glycemic control to allow for wound healing. 3. Diet. Consistent Carb diet. 4. Code Status. Full Code Status. 5. Disposition. Inpatient, disposition per primary medicine team. TIME SPENT: Time for this wound consultation was 20 minutes and 10 minutes was spent with the patient discussing past medical history; current wound treatments ; assessing, measuring, and photographing the wound. Is Patient a Wound Clinic Patient: Yes Next Visit: 04/10/19 Current Treatment: Silver collagen and Unna boot, change weekly. Attending: Trinh Santa
[2019-04-10] MEDS ORDERED: RASBURICASE IVPB ONE (14:00)
[2019-04-10] MEDS ORDERED: NS 0.9% IVPB ONE (14:00)
[2019-04-10] MEDS ORDERED: Rasburicase 1.5 MG VIAL(NF) IVPB ONE (14:00)
[2019-04-10] MEDS: cefTRIAXone(*) 1 GM in NS 0.9% 50 ML* 50 ML IVPB SCH (17:19)
--- NOTE | 2019-04-10 18:24 | CONSULT ---
Consult Consult: Chief complaint: Acute kidney injury Requesting physician: Dr. Jil Kenney MD History is taken from the patient who is a fair historian, review of the records and from the requesting physician. HPI: Seble Diaz is a very nice 63-year-old woman who was admitted on the for right flank pain and hematuria. She was found to have bilateral hydronephrosis due to kidney stones. She had bilateral stent placement and stones were passed. The analysis of the stone came back as 80% uric acid and 20 % calcium oxalate. She has a history of hyperuricemia and gout. Previous uric acid levels were 8.2 in 2014 at 9.18 in 2018. She also has a history of polycythemia vera and used to be on hydroxyurea. This was stopped because she developed a wound on her food which was not healing. After stopping the hydroxyurea her white blood cell count went up to 20,000. Despite relieving the obstruction serum creatinine continued to increase from her admission serum creatinine of 1.[address] up to 3.77 today. Her admission serum creatinine was a little higher than her baseline which is somewhere around 1.1-1.2 mg/dL. She did not have significant hemodynamic instability during this admission, nor did she receive NSAIDs Current Medications : - Acetaminophen as needed - Aspirin 81 mg daily - Dulcolax suppository as needed - Tums 500 mg daily as needed for heartburn - Ceftriaxone 1 g daily - Norpramin 50 mg daily - Diltiazem 300 mg daily - Colace 100 mg by mouth twice a day - Hydralazine as needed 10 mg IV - Insulin glargine 5 units subcutaneously every 24 hours and Humalog per sliding scale - Synthroid 75 mcg daily - Milk of magnesia as needed for heartburn - Morphine sulfate as needed for pain - Zofran as needed for nausea - Percocet as needed for pain - Pantoprazole 40 mg by mouth twice a day - MiraLAX as needed for constipation - Senokot 8.6 mg tablet at bedtime as needed for constipation. Past medical history significant: - type 2 diabetes mellitus - Polycythemia vera - Current - Hypertension - Hypothyroidism - Raynauds syndrome - Gout, - Anemia Past surgical history: - Cardiac catheterization which was negative for atherosclerotic coronary artery disease - Tonsillectomy - Carpal tunnel release - Tubal ligation, - lumbar discectomy Family history: Mother had uterine cancer and emphysema. Father had heart disease and type 2 diabetes mellitus as well as CHF. Sister had lupus and scleroderma, breast cancer and Raynauds Social history: Quit smoking 34 years ago. Social drinker. No recreational drugs. She is and lives with her and has 2 children. 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 Review of systems: Constitutional she is tired week sleepy after pain medications. Denies fevers or chills, appetite is decreased Cardiovascular: Denies chest pain, shortness of breath at rest but she gets short of breath with minimal exertion. She is on oxygen per nasal cannula and she was not on it at home. She has significant lower extremities edema. The left arm is swollen. She sleeps on the left side. Pulmonary: No cough, no sputum production, no wheezes, no hemoptysis GI: No abdominal pain, some nausea, no vomiting she had 6 days of constipation and finally had bowel movements today. : No dysuria. She had gross hematuria and now her urine is becoming less colored Musculoskeletal: Bilateral back pain in the lumbar area and flank pain. All systems were reviewed and there were negative unless otherwise specified. Physical exam: Blood pressure 117/52, temperature 97.3, heart rate 98/min, oxygen saturation is 94% on 2 L, respiration rate is 19/min. Constitutional: Looks tired and chronically ill no significant distress, pleasant and conversant. Obese Head: Atraumatic and normocephalic. Nose, lips and ears appear normal. Eyes: moist conjunctivae, no ptosis, pupils are equal. Neck: Supple, full range of motion, non-tender, no masses, trachea midline, no thyromegaly. Respiratory: Chest shows diffuse wheezes with good respiratory effort. Cardiovascular: Heart auscultation shows normal S1-S2, regular rate and rhythm, no murmur rubs or gallops. +3 peripheral edema. Gastrointestinal: Abdomen is soft, nontender and nondistended. Splenomegaly appreciated Musculoskeletal: No digital cyanosis or clubbing. No joint swelling or tenderness. Skin: No skin rashes, ulcers or lesions on the visible areas. Normal turgor and temperature. Neurologic: Speech fluent, no tremor, grossly nonfocal. Psychiatric: Appropriate affect, alert and oriented 3, intact judgment is insight. Labs sodium 130, potassium 5.0, total CO2 20, creatinine 0.77, hemoglobin 8.7%, uric acid 16.2, calcium 8.0, white blood cell count 23, hemoglobin 11.5, platelets 471, UA with 20 white blood cell count and red blood cells as well as calcium oxalate crystals. Albuminuria present at the time of gross hematuria. She had a 24-hour urine collection on March 28 which showed almost 3 g of protein per 24 hour period Assessment and plan: 1. Acute kidney injury most probably secondary to tumor lysis syndrome a. Rasburicase 6 mg 1 today, recheck Elitek uric acid tomorrow morning. b. Renal artery stenosis and renal vein thromboses were ruled rule out the Doppler ultrasound which showed patent renal arteries and veins c. Previous workup included serology which was negative. 2. Hypoxemia due to volume overload a. I would start Lasix 40 mg IV daily. Because I want to let her sleep overnight I will probably start that tomorrow morning. 3. Hydronephrosis due to kidney stones. Resolved 4. Polycythemia vera of hydroxyurea at this time. I would consider restarting it, but will leave this up to oncology. Discussed with Dr. Kenney Note was dictated with QingKe speech recognition Software and may contain some minor mistakes.
[2019-04-10] MEDS: Insulin GLARGINE(*) 1 UNITS UNIT SUBCUT SCH (21:11)
[2019-04-11] MEDS: Morphine INJ* 4 MG/ML 1 ML SYRINGE (NEW SYRINGE VERSION) IV PRN (02:26)
[2019-04-11] MEDS: Levothyroxine TAB* 75 MCG TAB PO SCH (06:08)
[2019-04-11 06:20] LABS: Hematocrit 33 % (35-47); Hemoglobin 10.7 g/dL (12.0-16.0); Mean Corpuscular HGB Conc 32 g/dL (31-36); Mean Corpuscular Hemoglobin 32 pg (27-31); Mean Corpuscular Volume 98 fL (80-97); Mean Platelet Volume 8.8 fL (7.4-10.4); Platelet Count 382 10^3/uL (150-450); Red Blood Count 3.38 10^6 /uL (3.70-4.87); Red Cell Distribution Width 21 % (10-15); White Blood Count 20.6 10^3/uL (3.5-10.8)
[2019-04-11 06:36] LABS: BUN/Creatinine Ratio 10.9 (8-20); Calcium 8.1 mg/dL (8.6-10.3); EGFR African American 13.4 (>60); EGFR Non-African American 11.1 (>60)
[2019-04-11 06:44] LABS: Potassium 5.1 mmol/L (3.5-5.0)
[2019-04-11 07:55] LABS: ABS Basophils 0.2 10^3/ul (0-0.2); ABS Eosinophils 0.1 10^3/ul (0-0.6); ABS Lymphocytes 0.6 10^3/ul (1.0-4.8); ABS Monocytes 0.5 10^3/ul (0-0.8); ABS Neutrophils 19.2 10^3/ul (1.5-7.7); ABS Nucleated RBC 0.3 10^3/ul; Eosinophil % 0.3 %; Nucleated Red Blood Cells % 1.3
[2019-04-11] MEDS ORDERED: Sodium Polystyrene ORAL.SOL* 15 GM/60 ML BTL PO ONE (08:12)
--- NOTE | 2019-04-11 08:13 | PN ---
Progress Note - Progress Note Date of Service: 04/11/19 Note: Chief complaint: Acute kidney injury Interval history : Mrs. Diaz looks a lot better today. At the time of my visit she was sitting up in bed having breakfast. Her appetite is pretty good. She states that she voided a lot more yesterday compared to the day before and the urine is almost clear. Flank pain is improved. Serum creatinine is worse than yesterday, but uric acid is not back yet. She had an uneventful night ROS : No shortness of breath at rest, no chest pain, no palpitations. No dysuria. On physical exam: Vitals: Blood pressure 129/56, oxygen saturation is 97% on 2 L, heart rate is 91 bpm, respiration rate is 16/min, temperature is 97.7 Constitutional: No acute distress, chronically ill, pleasant and conversant. Looks a little older than her stated age. Cardiovascular: S1-S2 regular rate and rhythm Abdomen: Soft nontender nondistended Lower extremities: Ankles are wrapped in clean dressing, no clubbing or cyanosis , edema decreased to somewhere between 2+-3+. Psychiatric: Alert and oriented 3, speech fluent, no tremor Labs this morning: White blood cell count 20, hemoglobin 10.7, platelets 382, creatinine 4.05 increased from 3.77, total CO2 21, sodium 127 decreased from 130 , potassium 5.1, calcium 8.1, uric acid pending. Past medical history: Polycythemia vera off hydroxyurea with leukocytosis, DM type II, hypertension, anemia, gout, renal and hypothyroidism. Todays medication include Desipramine 50 mg daily, Cardizem CD 300 mg daily, Lasix 40 IV daily started today, Synthroid, insulin glargine and insulin lispro, Zofran, Percocet, Protonix, milk of magnesia. Assessment and plan: 1. 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 Her kidney function not improving yet. Uric acid pending. I stopped the magnesium containing medication as the magnesium can accumulate in acute kidney injury. 2. Volume overload which can contribute to acute kidney injury is work component of cardiorenal syndrome. Please check echocardiogram Started Lasix 40 mg IV daily we will follow up on her diuretic response and adjust the dose as needed to achieve negative volume balance Strict Is and Os and daily weights 3. Hyponatremia with hypotonicity in context of volume overload. Limit fluid intake to 1 L per day - ordered Lasix should also help with hyponatremia provided with pain negative volume balance. 3. Very mild hyperkalemia. Showed response to kaliuresis secondary to Lasix.
[2019-04-11] MEDS: Desipramine TAB* 50 MG PO SCH (08:44)
[2019-04-11] MEDS: Furosemide IV* 10 MG/ML VIAL (40 MG) IV SCH (08:45)
[2019-04-11] MEDS: Collagenase 250 UNITS/GM OINT* 1 APPLIC OINT TOPICAL SCH (08:45)
[2019-04-11] MEDS: Aspirin EC TAB* 81 MG TAB.EC PO SCH (08:45)
[2019-04-11] MEDS: Pantoprazole TAB * 40 MG TAB PO SCH ×2 (08:45→19:48)
[2019-04-11] MEDS: Docusate CAP* 100 MG PO SCH ×3 (08:45→19:47)
[2019-04-11] MEDS: Diltiazem CD CAP* 120 MG PO SCH (08:45)
[2019-04-11] MEDS: Diltiazem CD CAP* 180 MG PO SCH (08:45)
[2019-04-11] MEDS: Insulin LISPRO* 1 UNITS UNIT SUBCUT SCH ×4 (08:46→19:49)
--- NOTE | 2019-04-11 08:59 | PN ---
Subjective Date of Service: 04/11/19 Interval History: Ms. Diaz is not feeling that well this morning. She has been awake since 0500 and is tired. She is not sure if the pain woke her, but she is having bilat flank pain, L>R. Denies SOB at rest, but has SOB with exertion. No CP. She thinks her urine output has increased. Eating breakfast on exam. No concerns from nursing. Family History: Unchanged from Admission Social History: Unchanged from Admission Past Medical History: Unchanged from Admission Objective Active Medications: Acetaminophen (Tylenol Tab*) 650 mg PO Q4H PRN MILD PAIN or TEMP > 100.4 Aspirin (Aspirin Ec Tab*) 81 mg PO DAILY [facility] Bisacodyl (Dulcolax Supp*) 10 mg [place] DAILY PRN CONSTIPATION Calcium Carbonate (Tums*) 500 mg PO DAILY PRN HEARTBURN Collagenase (Santyl 250 Units/Gm Oint*) 1 applic TOPICAL DAILY [facility] Desipramine HCl (Norpramin Tab*) 50 mg PO DAILY [facility] Dextrose (Dextrose 50% Vial 50 Ml*) 25 ml IV PUSH .FOR FS < 60 - SS PRN FS < 60 Diltiazem HCl (Cardizem Cd Cap*) 180 mg PO DAILY [facility] Diltiazem HCl (Cardizem Cd Cap*) 120 mg PO DAILY [facility] Docusate Sodium (Colace Cap*) 100 mg PO BID [facility] Furosemide (Lasix Iv*) 40 mg IV DAILY [facility] Hydralazine HCl (Apresoline Iv*) 10 mg IV SLOW PU Q6H PRN SYSTOLIC BP GREATER THAN: Vancomycin HCl 1,500 mg/ (Sodium Chloride) 250 mls @ 166.667 mls/hr IVPB ONCE ONE; Protocol Insulin Glargine (Lantus(*)) 5 units SUBCUT Q24H [facility] Insulin Human Lispro (Humalog*) 0 units SUBCUT ACHS [facility]; Protocol Levothyroxine Sodium (Synthroid Tab*) 75 mcg PO DAILY@0600 [facility] Morphine Sulfate (Morphine Inj (Syringe)*) 4 mg IV Q2H PRN PAIN - SEVERE Ondansetron HCl (Zofran Inj*) 4 mg IV Q4H PRN NAUSEA/VOMITING Oxycodone/Acetaminophen (Percocet 5/325 Tab*) 1 tab PO Q4H PRN PAIN - MODERATE Pantoprazole Sodium (Protonix Tab*) 40 mg PO BID [facility] Polyethylene Glycol/Electrolytes (Miralax*) 17 gm PO DAILY PRN CONSTIPATION Senna (Senokot 8.6 Mg Tab*) 1 tab PO BEDTIME PRN CONSTIPATION Vital Signs - 8 hr 04/11/19 04/11/19 04/11/19 01:02 02:22 02:26 Temperature 97.2 F Pulse Rate 95 Respiratory 22 18 Rate Blood Pressure 124/55 (mmHg) O2 Sat by Pulse 95 97 Oximetry 04/11/19 07:15 Temperature 97.7 F Pulse Rate 91 Respiratory 16 Rate Blood Pressure 129/56 (mmHg) O2 Sat by Pulse 97 Oximetry Oxygen Devices in Use Now: Nasal Cannula - 2L Appearance: Elderly female sitting in bed in NAD Ears/Nose/Mouth/Throat: Mucous Membranes Moist Neck: NL Appearance and Movements; NL JVP, Trachea Midline Respiratory: Symmetrical Chest Expansion and Respiratory Effort, Clear to Auscultation Cardiovascular: NL Sounds; No Murmurs; No JVD, RRR Abdominal: - - Bilat flanks tender to palpation, otherwise SNT Extremities: - - Mild nonpitting BLE Neurological: Alert and Oriented x 3 Lines/Tubes/Other Access: Clean, Dry and Intact Peripheral IV Nutrition: Taking PO's Result Diagrams: 04/11/19 06:13 04/11/19 06:13 Assess/Plan/Problems-Billing Assessment: Ms. Diaz is a 63 yo F with PMH of PV (on hydroxyurea, held 4 weeks ago), Raynaud's, HTN, DM2, chronic let leg ulcer; who presents with SOB, found to have bilat hydronephrosis. Diagnosed with with pneumonia and diffuse interstitial lung changes noted on CT 03/28/19 - finished a course of antibiotics. - Patient Problems (1) Acute worsening of stage 3 chronic kidney disease Code(s): N18.3 - CHRONIC KIDNEY DISEASE, STAGE 3 (MODERATE) Comment: - Suspected secondary to tumor lysis syndrome - Previously on IVF, stopped on 04/08/19 - UA shows gross hematuria and micoroalbumin urine is high - Hep B & C negative; ANCA previously negative (03/28/19) - Renal and bladder US shows enlarged renal calyx on the right - Renal artery duplex shows bilat patency without significant stenosis - Appreciate Nephrology consult - Uric acid level elevated 04/10/19, received rasburicase x1 under direction of Nephrology; repeat uric acid level pending - Pending: dsDNA, ANYA, complement C3, C4, G6PD, [place] & Lambda free light chains , SPEP - Start furosemide; Kayexalate x1 today (2) Hydronephrosis Code(s): N13.30 - UNSPECIFIED HYDRONEPHROSIS Comment: - Now resolved - D/t bilat stones which were found to be 80% uric acid - S/p cystoscopy and bilat stent placement by Dr. Purvis on 04/06/19 - Marshall removed post cystoscopy on 04/07/19 - Some hematuria post cystoscopy, likely due to hemorrhagic cystitis (3) UTI (urinary tract infection) Comment: - Culture from 04/08/19 growing >100k colonies MDR Enterococcus - D/c ceftriaxone - Start vanco (day 04/25) (4) DM2 (diabetes mellitus, type 2) Comment: - BG <200 - Continue Lantus, Lispro SS (5) Polycythemia vera Code(s): D45 - POLYCYTHEMIA VERA Comment: - Off hydroxyurea x4 weeks (stopped by Dr. 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 and no hydroxyurea - Appreciate Heme consult (6) HTN (hypertension) Code(s): I10 - ESSENTIAL (PRIMARY) HYPERTENSION Comment: - Normotensive - Holding lisinopril - Continue diltiazem (7) Chronic ulcer of left leg Code(s): L97.929 - NON-PRS CHRONIC ULC UNSP PRT OF L LOW LEG W UNSP SEVERITY Comment: - Follows with wound clinic - Appreciate Wound consult - Continue Santyl and dressing changes per Wound Care recommendations (8) DVT prophylaxis Code(s): Z29.9 - ENCOUNTER FOR PROPHYLACTIC MEASURES, UNSPECIFIED Comment: - SCDs only in the setting of hematuria (9) Full code status Code(s): Z78.9 - OTHER SPECIFIED HEALTH STATUS Comment: Status and Disposition: Inpatient. Anticipate d/c home when medically stable. Attending: Pamela Bergeron
[2019-04-11] MEDS ORDERED: Vancomycin per Pharmacy* NOTE FOLLOW UP SCH (09:00)
[2019-04-11] MEDS ORDERED: Vancomycin(*) 1,500 MG in NS 0.9% 250 ML* 250 ML IVPB ONE (09:00)
[2019-04-11] MEDS: oxyCODONE/Acetamin 5/325 MG* TAB PO PRN ×2 (09:03→19:48)
[2019-04-11 10:43] LABS: Complement C3 116 mg/dL (75 - 175)
--- NOTE | 2019-04-11 12:18 | PN ---
Progress Note - Progress Note Date of Service: 04/11/19 Note: please see addendum on the previous note
[2019-04-11 13:26] LABS: Kappa Free Light Chain 1.66 mg/dL; Lambda Free Light Chain 2.03 mg/dL
[2019-04-11 14:24] LABS: Albumin 2.1 g/dL (3.4-4.7); Albumin/Globulin Ratio 0.87; Gamma Globulin 0.4 g/dL (0.6-1.6); Total Protein(PEP) 4.4 g/dL (6.3 - 7.9)
[2019-04-11 17:37] LABS: BUN/Creatinine Ratio 10.7 (8-20); Calcium 7.7 mg/dL (8.6-10.3); EGFR African American 13.9 (>60); EGFR Non-African American 11.5 (>60); Potassium 5.1 mmol/L (3.5-5.0)
--- NOTE | 2019-04-11 19:34 | PN ---
Progress Note - Progress Note Date of Service: 04/11/19 Note: rechecked labs late in the afternoon. it is quite encouraging that serum creatinine is slightly improved, expect further improvement . ca low, will confirm with i calcium. check phos as well. K upper limit of normal . low k diet ( all ordered )
[2019-04-11] MEDS: Insulin GLARGINE(*) 1 UNITS UNIT SUBCUT SCH (19:49)
[2019-04-12] MEDS: oxyCODONE/Acetamin 5/325 MG* TAB PO PRN ×4 (02:31→20:46)
[2019-04-12] MEDS: Levothyroxine TAB* 75 MCG TAB PO SCH (05:10)
[2019-04-12 05:28] LABS: Hematocrit 31 % (35-47); Hemoglobin 10.2 g/dL (12.0-16.0); Mean Corpuscular HGB Conc 33 g/dL (31-36); Mean Corpuscular Hemoglobin 31 pg (27-31); Mean Corpuscular Volume 97 fL (80-97); Mean Platelet Volume 10.2 fL (7.4-10.4); Platelet Count 340 10^3/uL (150-450); Red Blood Count 3.25 10^6 /uL (3.70-4.87); Red Cell Distribution Width 20 % (10-15); White Blood Count 17.8 10^3/uL (3.5-10.8)
[2019-04-12 05:49] LABS: BUN/Creatinine Ratio 11.2 (8-20); Calcium 7.7 mg/dL (8.6-10.3); EGFR African American 14.7 (>60); EGFR Non-African American 12.2 (>60); Phosphorus 5.2 mg/dL (2.5-5.0); Potassium 4.7 mmol/L (3.5-5.0); Uric Acid 7.9 mg/dL (2.3-6.6)
[2019-04-12] MEDS ORDERED: Vancomycin Random Level* NOTE FOLLOW UP ONE (06:00)
[2019-04-12 06:02] LABS: Vancomycin Random 12.9 mcg/mL
[2019-04-12 06:36] LABS: Polychromasia 1+
[2019-04-12 06:37] LABS: ABS Basophils 0.1 10^3/ul (0-0.2); ABS Lymphocytes 0.8 10^3/ul (1.0-4.8); ABS Monocytes 0.5 10^3/ul (0-0.8); ABS Neutrophils 16.4 10^3/ul (1.5-7.7); ABS Nucleated RBC 0.2 10^3/ul; Eosinophil % 0.2 %; Lymphocyte % 4.5 %; Nucleated Red Blood Cells % 0.9
[2019-04-12] MEDS: Aspirin EC TAB* 81 MG TAB.EC PO SCH (08:31)
[2019-04-12] MEDS: Desipramine TAB* 50 MG PO SCH (08:31)
[2019-04-12] MEDS: Docusate CAP* 100 MG PO SCH ×2 (08:31→20:46)
[2019-04-12] MEDS: Diltiazem CD CAP* 120 MG PO SCH (08:31)
[2019-04-12] MEDS: Diltiazem CD CAP* 180 MG PO SCH (08:31)
[2019-04-12] MEDS: Pantoprazole TAB * 40 MG TAB PO SCH ×2 (08:31→20:46)
[2019-04-12] MEDS: Furosemide IV* 10 MG/ML VIAL (40 MG) IV SCH (08:31)
[2019-04-12] MEDS: Insulin LISPRO* 1 UNITS UNIT SUBCUT SCH ×4 (08:50→20:48)
[2019-04-12] MEDS ORDERED: Calcium Carbonate CHEW TAB* 500 MG (TUMS) PO ONE (09:07)
[2019-04-12] MEDS: Allopurinol TAB* 100 MG PO SCH (09:09)
--- NOTE | 2019-04-12 09:41 | PN ---
Subjective Date of Service: 04/12/19 Interval History: Ms. Diaz is feeling "alight" today. She offers no complaints. Denies SOB. Generally feels about the same as yesterday. Does not necessarily remember urinating more yesterday after the Lasix. She did not want to take the allopurinol this morning as she developed edema in the past when taking it. No concerns from nursing. Family History: Unchanged from Admission Social History: Unchanged from Admission Past Medical History: Unchanged from Admission Objective Active Medications: Acetaminophen (Tylenol Tab*) 650 mg PO Q4H PRN MILD PAIN or TEMP > 100.4 Allopurinol (Zyloprim Tab*) 100 mg PO DAILY [facility] Aspirin (Aspirin Ec Tab*) 81 mg PO DAILY [facility] Bisacodyl (Dulcolax Supp*) 10 mg [place] DAILY PRN CONSTIPATION Calcium Carbonate (Tums*) 500 mg PO DAILY PRN HEARTBURN Collagenase (Santyl 250 Units/Gm Oint*) 1 applic TOPICAL DAILY [facility] Desipramine HCl (Norpramin Tab*) 50 mg PO DAILY [facility] Dextrose (Dextrose 50% Vial 50 Ml*) 25 ml IV PUSH .FOR FS < 60 - SS PRN FS < 60 Diltiazem HCl (Cardizem Cd Cap*) 180 mg PO DAILY [facility] Diltiazem HCl (Cardizem Cd Cap*) 120 mg PO DAILY [facility] Docusate Sodium (Colace Cap*) 100 mg PO BID [facility] Furosemide (Lasix Iv*) 40 mg IV DAILY [facility] Vancomycin HCl 1,000 mg/ (Sodium Chloride) 250 mls @ 166.667 mls/hr IV ONCE ONE Insulin Glargine (Lantus(*)) 5 units SUBCUT Q24H [facility] Insulin Human Lispro (Humalog*) 0 units SUBCUT ACHS [facility]; Protocol Levothyroxine Sodium (Synthroid Tab*) 75 mcg PO DAILY@0600 [facility] Morphine Sulfate (Morphine Inj (Syringe)*) 4 mg IV Q2H PRN PAIN - SEVERE Ondansetron HCl (Zofran Inj*) 4 mg IV Q4H PRN NAUSEA/VOMITING Oxycodone/Acetaminophen (Percocet 5/325 Tab*) 1 tab PO Q4H PRN PAIN - MODERATE Pantoprazole Sodium (Protonix Tab*) 40 mg PO BID [facility] Polyethylene Glycol/Electrolytes (Miralax*) 17 gm PO DAILY PRN CONSTIPATION Senna (Senokot 8.6 Mg Tab*) 1 tab PO BEDTIME PRN CONSTIPATION Vital Signs - 8 hr 04/12/19 04/12/19 04/12/19 02:27 02:31 03:15 Temperature 98.2 F Pulse Rate 99 Respiratory 18 18 16 Rate Blood Pressure 140/59 (mmHg) O2 Sat by Pulse 96 Oximetry 04/12/19 04/12/19 04/12/19 07:15 08:00 08:15 Temperature 97.5 F Pulse Rate 95 Respiratory 20 18 20 Rate Blood Pressure 138/54 (mmHg) O2 Sat by Pulse 97 Oximetry Oxygen Devices in Use Now: None Appearance: Elderly female sitting in bed in NAD Ears/Nose/Mouth/Throat: Mucous Membranes Moist Neck: NL Appearance and Movements; NL JVP, Trachea Midline Respiratory: Symmetrical Chest Expansion and Respiratory Effort, Clear to Auscultation Cardiovascular: NL Sounds; No Murmurs; No JVD, RRR Abdominal: NL Sounds; No Tenderness; No Distention Extremities: - - +1 pitting BUE and BLE Neurological: Alert and Oriented x 3 Lines/Tubes/Other Access: Clean, Dry and Intact Peripheral IV Nutrition: Taking PO's Result Diagrams: 04/12/19 05:14 04/12/19 05:14 Assess/Plan/Problems-Billing Assessment: Ms. Diaz is a 63 yo F with PMH of PV (on hydroxyurea, held 4 weeks ago), Raynaud's, HTN, DM2, chronic let leg ulcer; who presents with SOB, found to have bilat hydronephrosis. Diagnosed with with pneumonia and diffuse interstitial lung changes noted on CT 03/28/19 - finished a course of antibiotics. - Patient Problems (1) Acute worsening of stage 3 chronic kidney disease Code(s): N18.3 - CHRONIC KIDNEY DISEASE, STAGE 3 (MODERATE) Comment: - Unclear etiology; Nephrology suspects tumor lysis syndrome, but Heme does not think this is accurate - Previously on IVF, stopped on 04/08/19 - UA shows gross hematuria and micoroalbumin urine high - Hep B & C negative; ANCA previously negative (03/28/19), normal ANYA, dsDNA, [place] & Lambda chains, C3; complement C4 elevated - Renal and bladder US shows enlarged renal calyx on the right - Renal artery duplex shows bilat patency without significant stenosis - Appreciate Nephrology consult - Uric acid level elevated 04/10/19, received rasburicase x1 under direction of Nephrology; repeat uric acid improved - Uric acid level this morning improved, but this was not drawn in a prechilled heparinized tube and stored on ice per FDA recommendations; correctly drawn lab pending at this time - Continue furosemide; calcium carb x1 today for mild hypocalcemia (2) Hydronephrosis Code(s): N13.30 - UNSPECIFIED HYDRONEPHROSIS Comment: - Now resolved - D/t bilat stones which were found to be 80% uric acid - S/p cystoscopy and bilat stent placement by Dr. Purvis on 04/06/19 - Marshall removed post cystoscopy on 04/07/19 - Some hematuria post cystoscopy, likely due to hemorrhagic cystitis (3) UTI (urinary tract infection) Comment: - Culture from 04/08/19 growing >100k colonies MDR Enterococcus - Continue vanco (day 2/7) (4) DM2 (diabetes mellitus, type 2) Comment: - BG <200 - Continue Lantus, Lispro SS (5) Polycythemia vera Code(s): D45 - POLYCYTHEMIA VERA Comment: - Off hydroxyurea x4 weeks (stopped by Dr. 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 and no hydroxyurea - Appreciate Heme consult (6) HTN (hypertension) Code(s): I10 - ESSENTIAL (PRIMARY) HYPERTENSION Comment: - Normotensive - Holding lisinopril - Continue diltiazem (7) Chronic ulcer of left leg Code(s): L97.929 - NON-PRS CHRONIC ULC UNSP PRT OF L LOW LEG W UNSP SEVERITY Comment: - Follows with wound clinic - Appreciate Wound consult - Continue Santyl and dressing changes per Wound Care recommendations (8) DVT prophylaxis Code(s): Z29.9 - ENCOUNTER FOR PROPHYLACTIC MEASURES, UNSPECIFIED Comment: - SCDs only in the setting of hematuria (9) Full code status Code(s): Z78.9 - OTHER SPECIFIED HEALTH STATUS Comment: Status and Disposition: Inpatient. Anticipate d/c home when medically stable, timeframe TBD by clinical course. Attending: Pamela Bergeron
[2019-04-12] MEDS ORDERED: Vancomycin(*) 1,000 MG in NS 0.9% 250 ML* 250 ML IV ONE (10:00)
[2019-04-12] MEDS: Collagenase 250 UNITS/GM OINT* 1 APPLIC OINT TOPICAL SCH ×2 (10:48→13:21)
[2019-04-12] MEDS: Insulin GLARGINE(*) 1 UNITS UNIT SUBCUT SCH (20:51)
[2019-04-13] MEDS: oxyCODONE/Acetamin 5/325 MG* TAB PO PRN ×3 (01:36→22:51)
[2019-04-13] MEDS: Levothyroxine TAB* 75 MCG TAB PO SCH (05:27)
[2019-04-13] MEDS ORDERED: Vancomycin Random Level* NOTE FOLLOW UP ONE (06:00)
[2019-04-13 06:16] LABS: Hematocrit 33 % (35-47); Hemoglobin 10.3 g/dL (12.0-16.0); Mean Corpuscular HGB Conc 32 g/dL (31-36); Mean Corpuscular Hemoglobin 31 pg (27-31); Mean Corpuscular Volume 97 fL (80-97); Mean Platelet Volume 9.3 fL (7.4-10.4); Platelet Count 339 10^3/uL (150-450); Red Blood Count 3.35 10^6 /uL (3.70-4.87); Red Cell Distribution Width 21 % (10-15); White Blood Count 17.4 10^3/uL (3.5-10.8)
[2019-04-13 06:31] LABS: BUN/Creatinine Ratio 12.8 (8-20); Calcium 8.1 mg/dL (8.6-10.3); EGFR African American 16.7 (>60); EGFR Non-African American 13.8 (>60); Potassium 4.3 mmol/L (3.5-5.0)
[2019-04-13 06:32] LABS: Vancomycin Random 16.2 mcg/mL
[2019-04-13 07:24] LABS: ABS Lymphocytes 0.8 10^3/ul (1.0-4.8); ABS Monocytes 0.5 10^3/ul (0-0.8); ABS Neutrophils 16.1 10^3/ul (1.5-7.7); ABS Nucleated RBC 0.2 10^3/ul; Eosinophil % 0.3 %; Lymphocyte % 4.5 %; Nucleated Red Blood Cells % 0.9
[2019-04-13 07:26] LABS: Polychromasia 1+
[2019-04-13] MEDS: Desipramine TAB* 50 MG PO SCH (07:32)
[2019-04-13] MEDS: Insulin LISPRO* 1 UNITS UNIT SUBCUT SCH ×4 (07:32→21:06)
[2019-04-13] MEDS: Collagenase 250 UNITS/GM OINT* 1 APPLIC OINT TOPICAL SCH (07:33)
[2019-04-13] MEDS: Pantoprazole TAB * 40 MG TAB PO SCH ×2 (07:33→21:06)
[2019-04-13] MEDS: Diltiazem CD CAP* 180 MG PO SCH (07:33)
[2019-04-13] MEDS: Docusate CAP* 100 MG PO SCH ×2 (07:33→21:05)
[2019-04-13] MEDS: Allopurinol TAB* 100 MG PO SCH (07:33)
[2019-04-13] MEDS: Aspirin EC TAB* 81 MG TAB.EC PO SCH (07:33)
[2019-04-13] MEDS: Diltiazem CD CAP* 120 MG PO SCH (07:33)
[2019-04-13] MEDS: Furosemide IV* 10 MG/ML VIAL (40 MG) IV SCH (07:33)
[2019-04-13 08:01] LABS: Uric Acid 8.2 mg/dL (2.3-6.6)
[2019-04-13] MEDS ORDERED: Calcium Carbonate CHEW TAB* 500 MG (TUMS) PO ONE (08:29)
--- NOTE | 2019-04-13 08:30 | PN ---
Subjective Date of Service: 04/13/19 Interval History: Ms. Diaz is not feeling well this morning. She continues to have back and flank pain, but not any worse than it has been. Pain does seem a little worse at night and she is not sleeping well. Denies CP or SOB. She did take the allopurinol this morning. No concerns from nursing. Family History: Unchanged from Admission Social History: Unchanged from Admission Past Medical History: Unchanged from Admission Objective Active Medications: Acetaminophen (Tylenol Tab*) 650 mg PO Q4H PRN MILD PAIN or TEMP > 100.4 Allopurinol (Zyloprim Tab*) 100 mg PO DAILY [facility] Aspirin (Aspirin Ec Tab*) 81 mg PO DAILY [facility] Bisacodyl (Dulcolax Supp*) [address] DAILY PRN CONSTIPATION Calcium Carbonate (Tums*) 500 mg PO DAILY PRN [facility]ARTBURN Collagenase (Santyl 250 Units/Gm Oint*) 1 applic TOPICAL DAILY [facility] Desipramine HCl (Norpramin Tab*) 50 mg PO DAILY [facility] Dextrose (Dextrose 50% Vial 50 Ml*) 25 ml IV PUSH .FOR FS < 60 - SS PRN FS < 60 Diltiazem HCl (Cardizem Cd Cap*) 180 mg PO DAILY [facility] Diltiazem HCl (Cardizem Cd Cap*) 120 mg PO DAILY [facility] Docusate Sodium (Colace Cap*) 100 mg PO BID [facility] Furosemide (Lasix Iv*) 40 mg IV DAILY [facility] Insulin Glargine (Lantus(*)) 5 units SUBCUT Q24H [facility] Insulin Human Lispro (Humalog*) 0 units SUBCUT ACHS [facility]; Protocol Levothyroxine Sodium (Synthroid Tab*) 75 mcg PO DAILY@0600 [facility] Morphine Sulfate (Morphine Inj (Syringe)*) 4 mg IV Q2H PRN PAIN - SEVERE Ondansetron HCl (Zofran Inj*) 4 mg IV Q4H PRN NAUSEA/VOMITING Oxycodone/Acetaminophen (Percocet 5/325 Tab*) 1 tab PO Q4H PRN PAIN - MODERATE Pantoprazole Sodium (Protonix Tab*) 40 mg PO BID [facility] Polyethylene Glycol/Electrolytes (Miralax*) 17 gm PO DAILY PRN CONSTIPATION Senna (Senokot 8.6 Mg Tab*) 1 tab PO BEDTIME PRN CONSTIPATION Vital Signs - 8 hr 04/13/19 04/13/19 04/13/19 01:36 02:45 03:31 Temperature 97.7 F Pulse Rate 102 Respiratory 18 18 16 Rate Blood Pressure 154/53 (mmHg) O2 Sat by Pulse 95 Oximetry 04/13/19 04/13/19 04/13/19 07:15 07:49 07:51 Temperature 97.3 F Pulse Rate 102 Respiratory 22 22 22 Rate Blood Pressure 155/57 (mmHg) O2 Sat by Pulse 96 Oximetry Oxygen Devices in Use Now: None Appearance: Elderly female sitting in bed in NAD Ears/Nose/Mouth/Throat: Mucous Membranes Moist Neck: NL Appearance and Movements; NL JVP, Trachea Midline Respiratory: Symmetrical Chest Expansion and Respiratory Effort, Clear to Auscultation Cardiovascular: NL Sounds; No Murmurs; No JVD, RRR Abdominal: NL Sounds; No Tenderness; No Distention Extremities: - - +1-2 pitting BUE and BLE Skin: - - Dressing intact to LLE Neurological: Alert and Oriented x 3 Lines/Tubes/Other Access: Clean, Dry and Intact Peripheral IV Nutrition: Taking PO's Result Diagrams: 04/13/19 05:51 04/13/19 05:51 Assess/Plan/Problems-Billing Assessment: Ms. Diaz is a 63 yo F with PMH of PV (on hydroxyurea, held 4 weeks ago), Raynaud's, HTN, DM2, chronic let leg ulcer; who presents with SOB, found to have bilat hydronephrosis. Diagnosed with with pneumonia and diffuse interstitial lung changes noted on CT 03/28/19 - finished a course of antibiotics. - Patient Problems (1) Acute worsening of stage 3 chronic kidney disease Code(s): N18.3 - CHRONIC KIDNEY DISEASE, STAGE 3 (MODERATE) Comment: - Unclear etiology; Nephrology suspects tumor lysis syndrome, but Heme does not think this is accurate - Previously on IVF, stopped on 04/08/19 - UA shows gross hematuria and micoroalbumin urine high - Hep B & C negative; ANCA previously negative (03/28/19), normal ANYA, dsDNA, [place] & Lambda chains, C3; complement C4 elevated - Renal and bladder US shows enlarged renal calyx on the right - Renal artery duplex shows bilat patency without significant stenosis - Appreciate Nephrology consult - Uric acid level elevated 04/10/19, received rasburicase x1 under direction of Nephrology; repeat uric acid improved - Uric acid level improving; no difference noted in chilled vs unchilled specimen (04/12 0514 vs 0910) so chilled labs not necessary going forward - Continue furosemide; calcium carb x1 again today for mild hypocalcemia (2) Hydronephrosis Code(s): N13.30 - UNSPECIFIED HYDRONEPHROSIS Comment: - Now resolved - D/t bilat stones which were found to be 80% uric acid - S/p cystoscopy and bilat stent placement by Dr. Purvis on 04/06/19 - Marshall removed post cystoscopy on 04/07/19 - Some hematuria post cystoscopy, likely due to hemorrhagic cystitis (3) UTI (urinary tract infection) Comment: - Culture from 04/08/19 growing >100k colonies MDR Enterococcus - Continue vanco (day 3) (4) DM2 (diabetes mellitus, type 2) Comment: - BG <200 - Continue Lantus, Lispro SS (5) Polycythemia vera Code(s): D45 - POLYCYTHEMIA VERA Comment: - Off hydroxyurea x4 weeks (stopped by Dr. 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 and no hydroxyurea - Appreciate Heme consult; no need to restart hydroxyurea at this point (6) HTN (hypertension) Code(s): I10 - ESSENTIAL (PRIMARY) HYPERTENSION Comment: - Slightly hypertensive - Holding lisinopril - Continue diltiazem (7) Chronic ulcer of left leg Code(s): L97.929 - NON-PRS CHRONIC ULC UNSP PRT OF L LOW LEG W UNSP SEVERITY Comment: - Follows with wound clinic - Appreciate Wound consult - Continue Santyl and dressing changes per Wound Care recommendations (8) DVT prophylaxis Code(s): Z29.9 - ENCOUNTER FOR PROPHYLACTIC MEASURES, UNSPECIFIED Comment: - SCDs only in the setting of hematuria (9) Full code status Code(s): Z78.9 - OTHER SPECIFIED HEALTH STATUS Comment: Status and Disposition: Inpatient. Anticipate d/c home when medically stable, timeframe TBD by clinical course. Attending: Elvia Riddle
[2019-04-13] MEDS ORDERED: Vancomycin(*) 1,000 MG in NS 0.9% 250 ML* 250 ML IV ONE (09:00)
--- NOTE | 2019-04-13 12:16 | PN ---
Progress Note - Progress Note Date of Service: 04/13/19 Note: Chief complaint: Acute kidney injury Interval history: Mrs. Diza is doing a little better today. She states that she is 50% of her baseline. Feels tired. She is less short of breath with exertion. She can walk to the bathroom getting a lot less short winded. She did not have any bowel movements today or yesterday. Voiding without any difficulties. Denies abdominal pain, chest pain, shortness of breath at rest, palpitations. She started allopurinol this morning. She is concerned that it may cause her lower extremities edema. Apparently she tried it in the past and she experienced leg swelling. She has also been prescribed uloric in the past, replaced allopurinol but it was very expensive and she did not get it. Kidney function continues to improve. Blood pressure elevated. She is also tachycardic. Review of systems as above Current medications: Tylenol as needed Allopurinol 100 mg daily started today Aspirin 81 mg daily Dulcolax suppositories 10 mg as needed for constipation Calcium carbonate 500 mg daily as needed for heartburn Norpramin 50 milligrams daily Diltiazem 300 mg daily extended release Docusate sodium 100 mg by mouth twice a day Furosemide 40 mg IV daily Insulin glargine and lispro Synthroid 75 mcg daily Morphine sulfate as needed for pain Zofran as needed for nausea Percocet 5/325 as needed for pain Protonix 40 mg by mouth twice a day Vancomycin per pharmacy MiraLAX as needed for constipation Senokot 1 tablet at bedtime as needed for constipation. Physical exam: Blood pressure 155/57, heart rate is 10 2 bpm, oxygen saturation is 96% on 2 L of oxygen per nasal cannula, temperature is 97.3. Constitutional: No acute distress, pleasant, conversant, looks tired Chest: Few crackles in both bases, good respiratory effort. Heart exam shows S1 and S2, regular rate and rhythm, no murmurs rubs or gallops appreciated, decreased lower extremities edema probably 2+. She also has presacral edema. Psychiatric: Alert and oriented 3, memory good, judgment and insight appropriate. Good mood. Labs are significant for a sodium of 136, creatinine of 3.35, bicarbonate of 21 , normal potassium, uric acid 8.2 mg/dL. Assessment and plan: 1. 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 Kidney function is improving after uric acid has decreased from 18-8 with 1 dose of rasburicase. A component of cardiorenal syndrome may also be possible. I expect kidney function to continue to improve. 2. Volume overload Improving with Lasix IV. We will switch from Lasix IV to torsemide 80 mg daily. First dose today. ( DONE ) 3. Hypertension and tachycardia Increase diltiazem CD from 300-360 mg daily.(DONE) 4. Hyponatremia resolved. DC fluid restriction (DONE) 5. Tumor lysis syndrome, gout, uric acid stones patient started allopurinol 100 mg daily. 6. The dose should be adjusted to maintain uric acid less than 6.. 7. Bilateral hydronephrosis resolved with stent placements.
[2019-04-13] MEDS: Torsemide TAB* 20 MG PO SCH (12:38)
[2019-04-13] MEDS: Insulin GLARGINE(*) 1 UNITS UNIT SUBCUT SCH (21:06)
[2019-04-14 05:36] LABS: ABS Eosinophils 0.1 10^3/ul (0-0.6); ABS Lymphocytes 0.9 10^3/ul (1.0-4.8); ABS Monocytes 0.4 10^3/ul (0-0.8); ABS Neutrophils 13.2 10^3/ul (1.5-7.7); ABS Nucleated RBC 0.2 10^3/ul; Eosinophil % 0.4 %; Hematocrit 30 % (35-47); Hemoglobin 9.5 g/dL (12.0-16.0); Lymphocyte % 6.2 %; Mean Corpuscular HGB Conc 32 g/dL (31-36); Mean Corpuscular Hemoglobin 30 pg (27-31); Mean Corpuscular Volume 95 fL (80-97); Mean Platelet Volume 8.6 fL (7.4-10.4); Platelet Count 290 10^3/uL (150-450); Red Blood Count 3.15 10^6 /uL (3.70-4.87); Red Cell Distribution Width 20 % (10-15); White Blood Count 14.6 10^3/uL (3.5-10.8)
[2019-04-14 05:52] LABS: BUN/Creatinine Ratio 17.2 (8-20); Calcium 8.3 mg/dL (8.6-10.3); EGFR African American 25.6 (>60); EGFR Non-African American 21.1 (>60); Potassium 3.6 mmol/L (3.5-5.0); Uric Acid 10.4 mg/dL (2.3-6.6)
[2019-04-14] MEDS ORDERED: Vancomycin Random Level* NOTE FOLLOW UP ONE (06:00)
[2019-04-14] MEDS: Levothyroxine TAB* 75 MCG TAB PO SCH (06:07)
[2019-04-14 06:17] LABS: Vancomycin Random 16.7 mcg/mL
[2019-04-14] MEDS: Insulin LISPRO* 1 UNITS UNIT SUBCUT SCH ×4 (07:56→20:42)
[2019-04-14] MEDS: Torsemide TAB* 20 MG PO SCH (07:57)
[2019-04-14] MEDS: Aspirin EC TAB* 81 MG TAB.EC PO SCH (07:58)
[2019-04-14] MEDS: Docusate CAP* 100 MG PO SCH ×2 (07:58→20:41)
[2019-04-14] MEDS: Diltiazem CD CAP* 180 MG PO SCH (07:59)
[2019-04-14] MEDS: Pantoprazole TAB * 40 MG TAB PO SCH ×2 (07:59→20:42)
[2019-04-14] MEDS: Allopurinol TAB* 100 MG PO SCH (08:01)
[2019-04-14] MEDS: Desipramine TAB* 50 MG PO SCH (08:01)
[2019-04-14] MEDS ORDERED: Vancomycin(*) 1,000 MG in NS 0.9% 250 ML* 250 ML IV SCH (09:00)
--- NOTE | 2019-04-14 11:59 | PN ---
Subjective Date of Service: 04/14/19 Interval History: Ms. Diaz is feeling better today. Overall, she feels more herself and as though she has more energy. She would like to get up and ambulate around the unit later today. Urine remains blood-tinged, but is improving. Denies CP or SOB. No concerns from nursing. Family History: Unchanged from Admission Social History: Unchanged from Admission Past Medical History: Unchanged from Admission Objective Active Medications: Acetaminophen (Tylenol Tab*) 650 mg PO Q4H PRN MILD PAIN or TEMP > 100.4 Allopurinol (Zyloprim Tab*) 100 mg PO DAILY [facility] Aspirin (Aspirin Ec Tab*) 81 mg PO DAILY [facility] Bisacodyl (Dulcolax Supp*) 10 mg ID DAILY PRN CONSTIPATION Calcium Carbonate (Tums*) 500 mg PO DAILY PRN HEARTBURN Collagenase (Santyl 250 Units/Gm Oint*) 1 applic TOPICAL DAILY [facility] Desipramine HCl (Norpramin Tab*) 50 mg PO DAILY [facility] Dextrose (Dextrose 50% Vial 50 Ml*) 25 ml IV PUSH .FOR FS < 60 - SS PRN FS < 60 Diltiazem HCl (Cardizem Cd Cap*) 360 mg PO DAILY [facility] Docusate Sodium (Colace Cap*) 100 mg PO BID [facility] Vancomycin HCl 1,000 mg/ (Sodium Chloride) 250 mls @ 166.667 mls/hr IV Q24HR@ 1200 [facility] Insulin Glargine (Lantus(*)) 5 units SUBCUT Q24H [facility] Insulin Human Lispro (Humalog*) 0 units SUBCUT ACHS [facility]; Protocol Levothyroxine Sodium (Synthroid Tab*) 75 mcg PO DAILY@0600 [facility] Morphine Sulfate (Morphine Inj (Syringe)*) 4 mg IV Q2H PRN PAIN - SEVERE Ondansetron HCl (Zofran Inj*) 4 mg IV Q4H PRN NAUSEA/VOMITING Oxycodone/Acetaminophen (Percocet 5/325 Tab*) 1 tab PO Q4H PRN PAIN - MODERATE Pantoprazole Sodium (Protonix Tab*) 40 mg PO BID [facility] Polyethylene Glycol/Electrolytes (Miralax*) 17 gm PO DAILY PRN CONSTIPATION Senna (Senokot 8.6 Mg Tab*) 1 tab PO BEDTIME PRN CONSTIPATION Torsemide (Demadex*) 80 mg PO DAILY [facility] Vital Signs - 8 hr 04/14/19 04/14/19 07:15 11:15 Temperature 98.3 F 97.9 F Pulse Rate 94 106 Respiratory 20 18 Rate Blood Pressure 131/65 142/55 (mmHg) O2 Sat by Pulse 96 95 Oximetry Oxygen Devices in Use Now: Nasal Cannula - 2L Appearance: Elderly female sitting in bed in NAD Ears/Nose/Mouth/Throat: Mucous Membranes Moist Neck: NL Appearance and Movements; NL JVP, Trachea Midline Respiratory: Symmetrical Chest Expansion and Respiratory Effort, Clear to Auscultation Cardiovascular: NL Sounds; No Murmurs; No JVD, RRR Abdominal: NL Sounds; No Tenderness; No Distention Extremities: - - +1 generalized pitting Skin: - - Dressing intact LLE Neurological: Alert and Oriented x 3 Lines/Tubes/Other Access: Clean, Dry and Intact Peripheral IV Nutrition: Taking PO's Result Diagrams: 04/14/19 05:20 04/14/19 05:20 Assess/Plan/Problems-Billing Assessment: Ms. Diaz is a 63 yo F with PMH of PV (on hydroxyurea, held 4 weeks ago), Raynaud's, HTN, DM2, chronic let leg ulcer; who presents with SOB, found to have bilat hydronephrosis. Diagnosed with with pneumonia and diffuse interstitial lung changes noted on CT 03/28/19 - finished a course of antibiotics. - Patient Problems (1) Acute worsening of stage 3 chronic kidney disease Code(s): N18.3 - CHRONIC KIDNEY DISEASE, STAGE 3 (MODERATE) Comment: - Creatinine continues to trend down - Unclear etiology; Nephrology suspects tumor lysis syndrome, but Heme does not think this is accurate - Previously on IVF, stopped on 04/08/19 - UA shows gross hematuria and micoroalbumin urine high - Hep B & C negative; ANCA previously negative (03/28/19), normal ANYA, dsDNA, [place] & Lambda chains, C3; complement C4 elevated - Renal and bladder US shows enlarged renal calyx on the right - Renal artery duplex shows bilat patency without significant stenosis - Appreciate Nephrology consult - Uric acid level elevated 04/10/19, received rasburicase x1 under direction of Nephrology; repeat uric acid improved - Uric acid level improving; no difference noted in chilled vs unchilled specimen (04/12 0514 vs 0910) so chilled labs not necessary going forward - Calcium corrects to normal - Continue furosemide (2) Hydronephrosis Code(s): N13.30 - UNSPECIFIED HYDRONEPHROSIS Comment: - Now resolved - D/t bilat stones which were found to be 80% uric acid - S/p cystoscopy and bilat stent placement by Dr. Purvis on 04/06/19 - Marshall removed post cystoscopy on 04/07/19 - Some hematuria post cystoscopy, likely due to hemorrhagic cystitis (3) UTI (urinary tract infection) Comment: - Culture from 04/08/19 growing >100k colonies MDR Enterococcus - Continue vanco (day 07/24) (4) DM2 (diabetes mellitus, type 2) Comment: - Continue Lantus, Lispro SS (5) Polycythemia vera Code(s): D45 - POLYCYTHEMIA VERA Comment: - Off hydroxyurea x4 weeks (stopped by Dr. 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 and no hydroxyurea - Appreciate Heme consult; no need to restart hydroxyurea at this point (6) HTN (hypertension) Code(s): I10 - ESSENTIAL (PRIMARY) HYPERTENSION Comment: - Normotensive - Holding lisinopril - Continue diltiazem (7) Chronic ulcer of left leg Code(s): L97.929 - NON-PRS CHRONIC ULC UNSP PRT OF L LOW LEG W UNSP SEVERITY Comment: - Follows with wound clinic - Appreciate Wound consult - Continue Santyl and dressing changes per Wound Care recommendations (8) DVT prophylaxis Code(s): Z29.9 - ENCOUNTER FOR PROPHYLACTIC MEASURES, UNSPECIFIED Comment: - SCDs only in the setting of hematuria (9) Full code status Code(s): Z78.9 - OTHER SPECIFIED HEALTH STATUS Comment: Status and Disposition: Inpatient. Anticipate d/c home when medically stable, hopefully 2-3 more days. Attending: Elvia Riddle
--- NOTE | 2019-04-14 12:06 | PN ---
Progress Note - Progress Note Date of Service: 04/14/19 Note: Chief complaint: Acute kidney injury Interval history: Mrs. Arias is improving from the renal perspective. She responded well to diuretics yesterday although she received both IV Lasix 40 mg in the torsemide 80 mg by mouth. Serum creatinine dropped almost one-point which is great. Edema is much improved. She still requires oxygen per nasal cannula. Overall she feels improved. Urine is pink. At the time of my visit she is visiting with her then a friend. Review of systems: No chest pain, palpitations or shortness of breath at rest. Her shortness of breath with exertion is much improved. She can walk without assistance to the bathroom. Left ankle wound is improving per patient. Medications: Acetaminophen (Tylenol Tab*) 650 mg PO Q4H PRN PRN Reason: MILD PAIN or TEMP > 100.4 Allopurinol (Zyloprim Tab*) 100 mg PO DAILY [facility] Last Admin: 04/14/19 08:01 Dose: 100 mg Aspirin (Aspirin Ec Tab*) 81 mg PO DAILY [facility] Last Admin: 04/14/19 07:58 Dose: 81 mg Bisacodyl (Dulcolax Supp*) 10 mg [place] DAILY PRN PRN Reason: CONSTIPATION Calcium Carbonate (Tums*) 500 mg PO DAILY PRN PRN Reason: HEARTBURN Last Admin: 04/09/19 15:39 Dose: 500 mg Collagenase (Santyl 250 Units/Gm Oint*) 1 applic TOPICAL DAILY [facility] Last Admin: 04/13/19 07:33 Dose: 1 applic Desipramine HCl (Norpramin Tab*) 50 mg PO DAILY [facility] Last Admin: 04/14/19 08:01 Dose: 50 mg Dextrose (Dextrose 50% Vial 50 Ml*) 25 ml IV PUSH .FOR FS < 60 - SS PRN PRN Reason: FS < 60 Diltiazem HCl (Cardizem Cd Cap*) 360 mg PO DAILY [facility] Last Admin: 04/14/19 07:59 Dose: 360 mg Docusate Sodium (Colace Cap*) 100 mg PO BID [facility] Last Admin: 04/14/19 07:58 Dose: 100 mg Vancomycin HCl 1,000 mg/ (Sodium Chloride) 250 mls @ 166.667 mls/hr IV Q24HR@ 1200 [facility] Insulin Glargine (Lantus(*)) 10 units SUBCUT Q24H [facility] Insulin Human Lispro (Humalog*) 0 units SUBCUT [facility]; Protocol Last Admin: 04/14/19 07:56 Dose: 2 unit Levothyroxine Sodium (Synthroid Tab*) 75 mcg PO DAILY@0600 [facility] Last Admin: 04/14/19 06:07 Dose: 75 mcg Morphine Sulfate (Morphine Inj (Syringe)*) 4 mg IV Q2H PRN PRN Reason: PAIN - SEVERE Last Admin: 04/11/19 02:26 Dose: 4 mg Ondansetron HCl (Zofran Inj*) 4 mg IV Q4H PRN PRN Reason: NAUSEA/VOMITING Oxycodone/Acetaminophen (Percocet 5/325 Tab*) 1 tab PO Q4H PRN PRN Reason: PAIN - MODERATE Last Admin: 04/13/19 22:51 Dose: 1 tab Pantoprazole Sodium (Protonix Tab*) 40 mg PO BID [facility] Last Admin: 04/14/19 07:59 Dose: 40 mg Pharmacy Consult (Vancomycin Per Pharmacy*) 1 note FOLLOW UP .VANC PER PHARMACY PEND[facility]; Protocol Pharmacy Profile Note (Vancomycin Trough Check) 1 note FOLLOW UP ONCE ONE Stop: 04/17/19 11:31 Polyethylene Glycol/Electrolytes (Miralax*) 17 gm PO DAILY PRN PRN Reason: CONSTIPATION Last Admin: 04/10/19 07:45 Dose: 17 gm Senna (Senokot 8.6 Mg Tab*) 1 tab PO BEDTIME PRN PRN Reason: CONSTIPATION Last Admin: 04/13/19 16:40 Dose: 1 tab Torsemide (Demadex*) 80 mg PO DAILY [facility] Last Admin: 04/14/19 07:57 Dose: 80 mg Labs: Laboratory Last Values WBC 14.6 10^3/uL (3.5-10.8) H 04/14/19 05:20 RBC 3.15 10^6 /uL (3.70-4.87) L 04/14/19 05:20 Hgb 9.5 g/dL (12.0-16.0) L 04/14/19 05:20 Hct 30 % (35-47) L 04/14/19 05:20 MCV 95 fL (80-97) 04/14/19 05:20 MCH 30 pg (27-31) 04/14/19 05:20 MCHC 32 g/dL (31-36) 04/14/19 05:20 RDW 20 % (10-15) H 04/14/19 05:20 Plt Count 290 10^3/uL (150-450) 04/14/19 05:20 MPV 8.6 fL (7.4-10.4) 04/14/19 05:20 Neut % (Auto) 90.1 % 04/14/19 05:20 Lymph % (Auto) 6.2 % 04/14/19 05:20 [place] % (Auto) 3.0 % 04/14/19 05:20 Eos % (Auto) 0.4 % 04/14/19 05:20 Baso % (Auto) 0.3 % 04/14/19 05:20 Absolute Neuts (auto) 13.2 10^3/ul (1.5-7.7) H 04/14/19 05:20 Absolute Lymphs (auto) 0.9 10^3/ul (1.0-4.8) L 04/14/19 05:20 Absolute Monos (auto) 0.4 10^3/ul (0-0.8) 04/14/19 05:20 Absolute Eos (auto) 0.1 10^3/ul (0-0.6) 04/14/19 05:20 Absolute Basos (auto) 0.0 10^3/ul (0-0.2) 04/14/19 05:20 Absolute Nucleated RBC 0.2 10^3/ul 04/14/19 05:20 Immature Gran % 2.0 % (0-9) 04/13/19 05:51 Neutrophils % 96.0 % 04/13/19 05:51 Band Neutrophils % 1.0 % (0-8) 04/13/19 05:51 Lymphocytes % 1.0 % 04/13/19 05:51 Reactive Lymphs % 1.0 % (0-6) 04/05/19 14:47 Monocytes % 1.0 % 04/13/19 05:51 Myelocytes % 1.0 % (0-1) 04/13/19 05:51 Nucleated RBC % 1.0 04/14/19 05:20 Nucleated RBCs/100 WBC 4.0 (0-0) H 04/13/19 05:51 Toxic Granulation 1+ 04/13/19 05:51 Platelet Morphology Large 04/05/19 14:47 Normal RBC Morphology Not Reportable 04/13/19 05:51 Polychromasia 1+ 04/13/19 05:51 Basophilic Stippling 1+ 04/13/19 05:51 Anisocytosis 1+ 04/13/19 05:51 Macrocytosis 1+ 04/13/19 05:51 Elliptocytes 1+ 04/12/19 05:14 G6PD 13.6 U/g Hb (8.8 - 13.4) H 04/10/19 14:09 Hem Pathologist Commnt 04/05/19 14:47 Sodium 139 mmol/L (135-145) 04/14/19 05:20 Potassium 3.6 mmol/L (3.5-5.0) 04/14/19 05:20 Chloride 104 mmol/L (101-111) 04/14/19 05:20 Carbon Dioxide 26 mmol/L (22-32) 04/14/19 05:20 Anion Gap 9 mmol/L (2-11) 04/14/19 05:20 BUN 40 mg/dL (6-24) H 04/14/19 05:20 Creatinine 2.32 mg/dL (0.51-0.95) H 04/14/19 05:20 Est GFR ( Amer) 25.6 (>60) 04/14/19 05:20 Est GFR (Non-Af Amer) 21.1 (>60) 04/14/19 05:20 BUN/Creatinine Ratio 17.2 (8-20) 04/14/19 05:20 Glucose 154 mg/dL (70-100) H 04/14/19 05:20 POC Glucose (mg/dL) 319 mg/dL (70-100) H 04/14/19 11:38 Hemoglobin A1c 8.7 % (4.0-5.6) H 04/05/19 14:47 Lactic Acid 0.6 mmol/L (0.5-2.0) 04/08/19 06:54 Uric Acid 10.4 mg/dL (2.3-6.6) H 04/14/19 05:20 Calcium 8.3 mg/dL (8.6-10.3) L 04/14/19 05:20 Ionized Calcium 1.09 mmol/L (1.16-1.32) L 04/12/19 05:14 Phosphorus 5.2 mg/dL (2.5-5.0) H 04/12/19 05:14 Total Bilirubin 0.50 mg/dL (0.2-1.0) 04/05/19 14:47 AST 8 U/L (13-39) L 04/05/19 14:47 ALT 6 U/L (7-52) L 04/05/19 14:47 Alkaline Phosphatase 131 U/L (34-104) H 04/05/19 14:47 C-Reactive Protein 82.27 mg/L (<8.01) H 04/10/19 06:05 Total Protein 5.9 g/dL (6.4-8.9) L 04/05/19 14:47 Total Protein (PEP) 4.4 g/dL (6.3 - 7.9) L 04/08/19 11:55 Albumin 3.2 g/dL (3.2-5.2) 04/05/19 14:47 Albumin (PEP) 2.1 g/dL (3.4-4.7) L 04/08/19 11:55 Globulin 2.7 g/dL (2-4) 04/05/19 14:47 Albumin/Globulin Ratio 1.2 (1-3) 04/05/19 14:47 Albumin/Globulin (PEP) 0.87 04/08/19 11:55 Fpvkx-7-Yyiuidfcp 0.5 g/dL (0.1-0.3) H 04/08/19 11:55 Inxci-2-Uqnyyfkih 0.8 g/dL (0.6-1.0) 04/08/19 11:55 Dkyt-5-Sonrqqds 0.7 g/dL (0.7-1.2) 04/08/19 11:55 Gamma Globulins 0.4 g/dL (0.6-1.6) L 04/08/19 11:55 M-Eliot Not Reportable 04/08/19 11:55 M-Eliot 2 Not Reportable 04/08/19 11:55 PEP Impression See comment 04/08/19 11:55 Urine Color Red A 04/08/19 14:07 Urine Appearance Turbid 04/08/19 14:07 Urine pH Dealership Manager 04/08/19 14:07 Ur Specific [place] 1.017 (1.010-1.030) 04/08/19 14:07 Urine Protein Dealership Manager 04/08/19 14:07 Urine Ketones Dealership Manager 04/08/19 14:07 Urine Blood Dealership Manager 04/08/19 14:07 Urine Nitrate Dealership Manager 04/08/19 14:07 Urine Bilirubin Dealership Manager 04/08/19 14:07 Urine Urobilinogen Dealership Manager 04/08/19 14:07 Ur Leukocyte Esterase Dealership Manager 04/08/19 14:07 Urine WBC (Auto) 3+(>20/hpf) (Absent) A 04/08/19 14:07 Urine RBC (Auto) 3+(>10/hpf) (Absent) A 04/08/19 14:07 Calcium Oxalate Crystal Present (Absent) A 04/05/19 14:54 Urine Bacteria Absent (Absent) 04/08/19 14:07 Ur Random Microalbumin 1438.9 mg/L 04/08/19 14:07 Ur Creatinine mg/dL 113.23 mg/dL 04/08/19 14:07 Ur Creatinine Concen 113.23 mg/dL 04/08/19 14:07 Microalb/Creat Ratio 1270.7 (<31) H 04/08/19 14:07 Urine Glucose Dealership Manager 04/08/19 14:07 Urine Ascorbic Acid Not Reportable 04/05/19 14:54 Stone Source Urethra 04/06/19 12:45 Ur Kidney Stone Interp See comment 04/06/19 12:45 Random Vancomycin 16.7 mcg/mL 04/14/19 05:20 [place] Light Chain 1.66 mg/dL 04/08/19 11:55 Lambda Light Chain 2.03 mg/dL 04/08/19 11:55 [place]/Lambda Ratio 0.8177 04/08/19 11:55 Anti-Nuclear Antibody 0.2 U 04/08/19 11:55 Anti-ds DNA IgG Ab <12.3 IU/mL 04/08/19 11:55 Complement C3 116 mg/dL (75 - 175) 04/08/19 11:55 Complement C4 64 mg/dL (14 - 40) H 04/08/19 11:55 Hepatitis B Antibody Not immune (Immune) A 04/08/19 11:55 Hepatitis C Antibody Negative (Negative) 04/08/19 11:55 Hepatitis C Ab Index 0.03 s/c 04/08/19 11:55 Physical exam: Vitals: Vital Signs 04/13/19 04/13/19 04/13/19 15:15 19:15 20:00 Temperature 97.6 F 97.3 F Pulse Rate 101 103 Respiratory 22 18 18 Rate Blood Pressure 150/61 157/57 (mmHg) O2 Sat by Pulse 98 93 Oximetry 04/13/19 04/13/19 04/14/19 22:51 23:15 02:07 Temperature 98.9 F Pulse Rate 98 Respiratory 16 20 15 Rate Blood Pressure 138/43 (mmHg) O2 Sat by Pulse 95 Oximetry 04/14/19 04/14/19 04/14/19 03:15 07:15 11:15 Temperature 97.8 F 98.3 F 97.9 F Pulse Rate 93 94 106 Respiratory 16 20 18 Rate Blood Pressure 131/55 131/65 142/55 (mmHg) O2 Sat by Pulse 95 96 95 Oximetry Constitutional, no acute distress pleasant and conversant overall looks improved. Chest is clear to auscultation Heart shows S1-S2 regular rate and rhythm no murmurs rubs or gallops. Bilateral lower extremities edema much of approved visits somewhere between 1+ and 2+. Abdomen is soft nontender nondistended Extremities without clubbing or cyanosis. A clean dressing covering the wound on the left ankle. Assessment and plan: 1. 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 a. Improving. Continue same management. 2. Hypertension, improved, no changes today. 3. Hyperuricemia. Complicated with gout and uric acid stones. Uric acid is going up to 10.5 today. Recommended to low purine diet. She thought that she started allopurinol yesterday but it is not marked as given on the JUN. Will reorder. 4. Hydronephrosis resolved. She still has bilateral ureteral stents in place. She is to follow-up with Dr. Purvis regarding this. 5. Enterococcal UTI on vancomycin. 6. Hyponatremia improved can continue to stay off of fluid restriction. she can be discharged to home from the renal perspective. She should continue torsemide 80 mg daily. I also recommend daily weights at home. I will follow- up with her within a week after discharge. She is to bring the daily weights records for review at follow-up visits. I will not be making rounds in the hospital tomorrow but I am available by phone at [phone] thank you Silvia Connolly MD Nephrology
[2019-04-14] MEDS: Vancomycin(*) 1,000 MG in NS 0.9% 250 ML* 250 ML IV SCH (12:22)
[2019-04-14] MEDS: Collagenase 250 UNITS/GM OINT* 1 APPLIC OINT TOPICAL SCH (16:50)
[2019-04-14] MEDS: Insulin GLARGINE(*) 1 UNITS UNIT SUBCUT SCH (20:42)
[2019-04-14] MEDS: oxyCODONE/Acetamin 5/325 MG* TAB PO PRN (22:20)
[2019-04-15] MEDS: Levothyroxine TAB* 75 MCG TAB PO SCH (06:04)
[2019-04-15 07:27] LABS: Calcium 8.1 mg/dL (8.6-10.3); EGFR African American 35.4 (>60); EGFR Non-African American 29.3 (>60); Potassium 3.9 mmol/L (3.5-5.0); Uric Acid 10.2 mg/dL (2.3-6.6)
[2019-04-15] MEDS: Allopurinol TAB* 100 MG PO SCH (07:59)
[2019-04-15] MEDS: Desipramine TAB* 50 MG PO SCH (07:59)
[2019-04-15] MEDS: Torsemide TAB* 20 MG PO SCH (08:00)
[2019-04-15] MEDS: Docusate CAP* 100 MG PO SCH ×2 (08:00→20:56)
[2019-04-15] MEDS: Diltiazem CD CAP* 180 MG PO SCH (08:00)
[2019-04-15] MEDS: Aspirin EC TAB* 81 MG TAB.EC PO SCH (08:00)
[2019-04-15] MEDS: Pantoprazole TAB * 40 MG TAB PO SCH ×2 (08:00→20:56)
[2019-04-15] MEDS: Insulin LISPRO* 1 UNITS UNIT SUBCUT SCH ×4 (08:07→20:56)
--- NOTE | 2019-04-15 09:09 | PN ---
Subjective Date of Service: 04/15/19 Interval History: Patient with no complaints today. Continues to report blood tinged urine. Denies pain or burning with urination. Denies chest pain or shortness of breath. Labs reviewed Creatinine continues to improve. Urine culture with MDR Enterococcus - will 7 days of Vancomycin to complete treatment on day 5 Family History: Unchanged from Admission Social History: Unchanged from Admission Past Medical History: Unchanged from Admission Objective Active Medications: Acetaminophen (Tylenol Tab*) 650 mg PO Q4H PRN PRN Reason: MILD PAIN or TEMP > 100.4 Allopurinol (Zyloprim Tab*) 100 mg PO DAILY [facility] Last Admin: 04/15/19 07:59 Dose: 100 mg Aspirin (Aspirin Ec Tab*) 81 mg PO DAILY [facility] Last Admin: 04/15/19 08:00 Dose: 81 mg Bisacodyl (Dulcolax Supp*) 10 mg [place] DAILY PRN PRN Reason: CONSTIPATION Calcium Carbonate (Tums*) 500 mg PO DAILY PRN PRN Reason: HEARTBURN Last Admin: 04/09/19 15:39 Dose: 500 mg Collagenase (Santyl 250 Units/Gm Oint*) 1 applic TOPICAL DAILY [facility] Last Admin: 04/14/19 16:50 Dose: 1 applic Desipramine HCl (Norpramin Tab*) 50 mg PO DAILY [facility] Last Admin: 04/15/19 07:59 Dose: 50 mg Dextrose (Dextrose 50% Vial 50 Ml*) 25 ml IV PUSH .FOR FS < 60 - SS PRN PRN Reason: FS < 60 Diltiazem HCl (Cardizem Cd Cap*) 360 mg PO DAILY [facility] Last Admin: 04/15/19 08:00 Dose: 360 mg Docusate Sodium (Colace Cap*) 100 mg PO BID [facility] Last Admin: 04/15/19 08:00 Dose: 100 mg Vancomycin HCl 1,000 mg/ (Sodium Chloride) 250 mls @ 166.667 mls/hr IV Q24HR@ 1200 [facility] Last Admin: 04/14/19 12:22 Dose: 166.667 mls/hr Insulin Glargine (Lantus(*)) 10 units SUBCUT Q24H [facility] Last Admin: 04/14/19 20:42 Dose: 10 unit Insulin Human Lispro (Humalog*) 0 units SUBCUT [facility]; Protocol Last Admin: 04/15/19 08:07 Dose: 2 unit Levothyroxine Sodium (Synthroid Tab*) 75 mcg PO DAILY@0600 [facility] Last Admin: 04/15/19 06:04 Dose: 75 mcg Morphine Sulfate (Morphine Inj (Syringe)*) 4 mg IV Q2H PRN PRN Reason: PAIN - SEVERE Last Admin: 04/11/19 02:26 Dose: 4 mg Ondansetron HCl (Zofran Inj*) 4 mg IV Q4H PRN PRN Reason: NAUSEA/VOMITING Oxycodone/Acetaminophen (Percocet 5/325 Tab*) 1 tab PO Q4H PRN PRN Reason: PAIN - MODERATE Last Admin: 04/14/19 22:20 Dose: 1 tab Pantoprazole Sodium (Protonix Tab*) 40 mg PO BID [facility] Last Admin: 04/15/19 08:00 Dose: 40 mg Pharmacy Consult (Vancomycin Per Pharmacy*) 1 note FOLLOW UP .VANC PER PHARMACY [facility]; Protocol Pharmacy Profile Note (Vancomycin Trough Check) 1 note FOLLOW UP ONCE ONE Stop: 04/17/19 11:31 Polyethylene Glycol/Electrolytes (Miralax*) 17 gm PO DAILY PRN PRN Reason: CONSTIPATION Last Admin: 04/10/19 07:45 Dose: 17 gm Senna (Senokot 8.6 Mg Tab*) 1 tab PO BEDTIME PRN PRN Reason: CONSTIPATION Last Admin: 04/13/19 16:40 Dose: 1 tab Torsemide (Demadex*) 80 mg PO DAILY [facility] Last Admin: 04/15/19 08:00 Dose: 80 mg Vital Signs - 8 hr 04/15/19 04/15/19 02:38 03:15 Temperature 97.9 F Pulse Rate 92 Respiratory 14 18 Rate Blood Pressure 137/45 (mmHg) O2 Sat by Pulse 94 Oximetry Oxygen Devices in Use Now: Nasal Cannula Appearance: alert ox3 , no acute distress Eyes: No Scleral Icterus Ears/Nose/Mouth/Throat: Clear Oropharnyx, Mucous Membranes Moist Neck: NL Appearance and Movements; NL JVP, Trachea Midline Respiratory: Symmetrical Chest Expansion and Respiratory Effort, Clear to Auscultation Cardiovascular: NL Sounds; No Murmurs; No JVD, No Edema Abdominal: NL Sounds; No Tenderness; No Distention Extremities: No Edema, No Clubbing, Cyanosis Skin: No Rash or Ulcers Neurological: Alert and Oriented x 3 Nutrition: Taking PO's Result Diagrams: 04/14/19 05:20 04/15/19 06:48 Additional Lab and Data: Above labs were pulled into the note, when the note was edited prior to signing. Please see below for labs from the day of consultation. Laboratory Tests 04/05/19 04/05/19 04/10/19 14:47 14:47 06:05 WBC 23.1 H Hgb 11.5 L Hct 36 Plt Count 471 H Sodium Potassium Chloride Carbon Dioxide BUN Creatinine Glucose Hemoglobin A1c 8.7 H Total Protein 5.9 L Albumin 3.2 04/10/19 06:05 WBC Hgb Hct Plt Count Sodium 130 L Potassium 5.0 Chloride 102 Carbon Dioxide 20 L BUN 39 H Creatinine 3.77 H Glucose 177 H Hemoglobin A1c Total Protein Albumin Microbiology and Other Data: Microbiology 04/05/19 14:54 Urine Culture - Final Urine No Growth (<1,000 CFU/mL) Assess/Plan/Problems-Billing Assessment: Ms. Diaz is a 63 yo F with PMH of PV (on hydroxyurea, held 4 weeks ago), Raynaud's, HTN, DM2, chronic let leg ulcer; who presents with SOB, found to have bilat hydronephrosis. Diagnosed with with pneumonia and diffuse interstitial lung changes noted on CT 03/28/19 - finished a course of antibiotics. - Patient Problems (1) Acute worsening of stage 3 chronic kidney disease Current Visit: Yes Status: Acute Code(s): N18.3 - CHRONIC KIDNEY DISEASE, STAGE 3 (MODERATE) SNOMED Code(s): 418884032 Comment: - Creatinine continues to trend down - Unclear etiology; Nephrology suspects tumor lysis syndrome, but Heme does not think this is accurate- clear for discahrge from nephrology standpoint - Previously on IVF, stopped on 04/08/19 - UA shows gross hematuria and micoroalbumin urine high - Hep B & C negative; ANCA previously negative (03/28/19), normal ANYA, dsDNA, [place] & Lambda chains, C3; complement C4 elevated - Renal and bladder US shows 7mm echogenic area in the right upper calyx suggesting calculus, bilateral renal cysts - Renal artery duplex shows bilat patency without significant stenosis - Appreciate Nephrology consult - Uric acid level elevated 04/10/19, received rasburicase x1 under direction of Nephrology; repeat uric acid improved - Uric acid level improving; no difference noted in chilled vs unchilled specimen (04/12 0514 vs 0910) so chilled labs not necessary going forward - Calcium corrects to normal - Continue furosemide (2) Hydronephrosis Current Visit: Yes Status: Acute Code(s): N13.30 - UNSPECIFIED HYDRONEPHROSIS SNOMED Code(s): 72914128 Comment: - Now resolved - D/t bilat stones which were found to be 80% uric acid - S/p cystoscopy and bilat stent placement by Dr. Purvis on 04/06/19 - Marshall removed post cystoscopy on 04/07/19 - Some hematuria post cystoscopy, likely due to hemorrhagic cystitis (3) UTI (urinary tract infection) Current Visit: Yes Status: Acute Comment: - Culture from 04/08/19 growing >100k colonies MDR Enterococcus - Continue vanco (day 08/23) (4) DM2 (diabetes mellitus, type 2) Current Visit: No Status: Acute Comment: - Continue Lantus, Lispro SS (5) HTN (hypertension) Current Visit: No Status: Acute Code(s): I10 - ESSENTIAL (PRIMARY) HYPERTENSION SNOMED Code(s): 18276802 Comment: - Normotensive - Holding lisinopril - Continue diltiazem (6) Polycythemia vera Current Visit: No Status: Acute Code(s): D45 - POLYCYTHEMIA VERA SNOMED Code(s): 426111609 Comment: - Off hydroxyurea x4 weeks (stopped by Dr. 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 and no hydroxyurea - Appreciate Heme consult; no need to restart hydroxyurea at this point (7) Chronic ulcer of left leg Current Visit: Yes Status: Acute Code(s): L97.929 - NON-PRS CHRONIC ULC UNSP PRT OF L LOW LEG W UNSP SEVERITY SNOMED Code(s): 12346845 Comment: - Follows with wound clinic - Appreciate Wound consult - Continue Santyl and dressing changes per Wound Care recommendations (8) DVT prophylaxis Current Visit: Yes Status: Acute Code(s): Z29.9 - ENCOUNTER FOR PROPHYLACTIC MEASURES, UNSPECIFIED SNOMED Code(s): 545665187 Comment: - SCDs only in the setting of hematuria (9) Full code status Current Visit: Yes Status: Acute Code(s): Z78.9 - OTHER SPECIFIED HEALTH STATUS SNOMED Code(s): 927733424 Comment: Status and Disposition: Inpatient. Anticipate d/c home when medically stable, hopefully 2-3 more days.
[2019-04-15] MEDS: Vancomycin(*) 1,000 MG in NS 0.9% 250 ML* 250 ML IV SCH (12:20)
[2019-04-15] MEDS: Collagenase 250 UNITS/GM OINT* 1 APPLIC OINT TOPICAL SCH (14:08)
[2019-04-15] MEDS: Insulin GLARGINE(*) 1 UNITS UNIT SUBCUT SCH (20:57)
[2019-04-15] MEDS: oxyCODONE/Acetamin 5/325 MG* TAB PO PRN (22:10)
[2019-04-16] MEDS: Levothyroxine TAB* 75 MCG TAB PO SCH (06:15)
[2019-04-16 06:20] LABS: Hematocrit 28 % (35-47); Mean Corpuscular HGB Conc 33 g/dL (31-36); Mean Corpuscular Hemoglobin 31 pg (27-31); Mean Corpuscular Volume 95 fL (80-97); Mean Platelet Volume 8.8 fL (7.4-10.4); Platelet Count 224 10^3/uL (150-450); Red Blood Count 2.92 10^6 /uL (3.70-4.87); Red Cell Distribution Width 21 % (10-15); White Blood Count 14.2 10^3/uL (3.5-10.8)
[2019-04-16 06:40] LABS: Calcium 7.7 mg/dL (8.6-10.3); EGFR African American 42.3 (>60); Potassium 3.5 mmol/L (3.5-5.0)
[2019-04-16] MEDS: Insulin LISPRO* 1 UNITS UNIT SUBCUT SCH ×4 (08:20→21:13)
[2019-04-16] MEDS: Diltiazem CD CAP* 180 MG PO SCH (08:22)
[2019-04-16] MEDS: Torsemide TAB* 20 MG PO SCH (08:22)
[2019-04-16] MEDS: Aspirin EC TAB* 81 MG TAB.EC PO SCH (08:22)
[2019-04-16] MEDS: Allopurinol TAB* 100 MG PO SCH (08:22)
[2019-04-16] MEDS: Pantoprazole TAB * 40 MG TAB PO SCH ×2 (08:22→21:09)
[2019-04-16] MEDS: Desipramine TAB* 50 MG PO SCH (08:22)
[2019-04-16] MEDS: Docusate CAP* 100 MG PO SCH ×2 (08:22→21:09)
[2019-04-16] MEDS ORDERED: Potassium Chlor TAB* 10 MEQ TAB.ER PO ONE (09:26)
[2019-04-16] MEDS: Collagenase 250 UNITS/GM OINT* 1 APPLIC OINT TOPICAL SCH (11:05)
--- NOTE | 2019-04-16 11:23 | PN ---
Subjective Date of Service: 04/16/19 Interval History: Patient with no complaints. States that urine color is slightly pink, improved from yesterday. reports a couple episode of pain in the bilat flank area only lasting a couple seconds overnight. No episodes today. Denies any chest pain or shortness of breath. Denies any n/v/d. Denies fever or chills. Family History: Unchanged from Admission Social History: Unchanged from Admission Past Medical History: Unchanged from Admission Objective Active Medications: Acetaminophen (Tylenol Tab*) 650 mg PO Q4H PRN PRN Reason: MILD PAIN or TEMP > 100.4 Allopurinol (Zyloprim Tab*) 100 mg PO DAILY [facility] Last Admin: 04/16/19 08:22 Dose: 100 mg Aspirin (Aspirin Ec Tab*) 81 mg PO DAILY [facility] Last Admin: 04/16/19 08:22 Dose: 81 mg Bisacodyl (Dulcolax Supp*) 10 mg [place] DAILY PRN PRN Reason: CONSTIPATION Calcium Carbonate (Tums*) 500 mg PO DAILY PRN PRN Reason: HEARTBURN Last Admin: 04/09/19 15:39 Dose: 500 mg Collagenase (Santyl 250 Units/Gm Oint*) 1 applic TOPICAL DAILY [facility] Last Admin: 04/16/19 11:05 Dose: 1 applic Desipramine HCl (Norpramin Tab*) 50 mg PO DAILY [facility] Last Admin: 04/16/19 08:22 Dose: 50 mg Dextrose (Dextrose 50% Vial 50 Ml*) 25 ml IV PUSH .FOR FS < 60 - SS PRN PRN Reason: FS < 60 Diltiazem HCl (Cardizem Cd Cap*) 360 mg PO DAILY [facility] Last Admin: 04/16/19 08:22 Dose: 360 mg Docusate Sodium (Colace Cap*) 100 mg PO BID [facility] Last Admin: 04/16/19 08:22 Dose: 100 mg Vancomycin HCl 1,000 mg/ (Sodium Chloride) 250 mls @ 166.667 mls/hr IV Q24HR@ 1200 [facility] Last Admin: 04/15/19 12:20 Dose: 166.667 mls/hr Insulin Glargine (Lantus(*)) 10 units SUBCUT Q24H [facility] Last Admin: 04/15/19 20:57 Dose: 10 unit Insulin Human Lispro (Humalog*) 0 units SUBCUT ACHS [facility]; Protocol Last Admin: 04/16/19 08:20 Dose: 2 unit Levothyroxine Sodium (Synthroid Tab*) 75 mcg PO DAILY@0600 [facility] Last Admin: 04/16/19 06:15 Dose: 75 mcg Morphine Sulfate (Morphine Inj (Syringe)*) 4 mg IV Q2H PRN PRN Reason: PAIN - SEVERE Last Admin: 04/11/19 02:26 Dose: 4 mg Ondansetron HCl (Zofran Inj*) 4 mg IV Q4H PRN PRN Reason: NAUSEA/VOMITING Oxycodone/Acetaminophen (Percocet 5/325 Tab*) 1 tab PO Q4H PRN PRN Reason: PAIN - MODERATE Last Admin: 04/15/19 22:10 Dose: 1 tab Pantoprazole Sodium (Protonix Tab*) 40 mg PO BID [facility] Last Admin: 04/16/19 08:22 Dose: 40 mg Pharmacy Consult (Vancomycin Per Pharmacy*) 1 note FOLLOW UP .VANC PER PHARMACY [facility]; Protocol Pharmacy Profile Note (Vancomycin Trough Check) 1 note FOLLOW UP ONCE ONE Stop: 04/17/19 11:31 Polyethylene Glycol/Electrolytes (Miralax*) 17 gm PO DAILY PRN PRN Reason: CONSTIPATION Last Admin: 04/10/19 07:45 Dose: 17 gm Senna (Senokot 8.6 Mg Tab*) 1 tab PO BEDTIME PRN PRN Reason: CONSTIPATION Last Admin: 04/13/19 16:40 Dose: 1 tab Torsemide (Demadex*) 80 mg PO DAILY [facility] Last Admin: 04/16/19 08:22 Dose: 80 mg Vital Signs - 8 hr 04/16/19 04/16/19 04/16/19 07:38 08:00 10:38 Temperature 98.1 F 97.8 F Pulse Rate 101 101 Respiratory 16 18 16 Rate Blood Pressure 152/54 141/54 (mmHg) O2 Sat by Pulse 97 94 Oximetry Oxygen Devices in Use Now: None Appearance: appears comfortable restingin bed , no acute distress Eyes: No Scleral Icterus Ears/Nose/Mouth/Throat: Clear Oropharnyx, Mucous Membranes Moist Neck: NL Appearance and Movements; NL JVP Respiratory: Symmetrical Chest Expansion and Respiratory Effort, Clear to Auscultation Cardiovascular: NL Sounds; No Murmurs; No JVD, No Edema Abdominal: NL Sounds; No Tenderness; No Distention Extremities: No Edema, No Clubbing, Cyanosis Skin: No Rash or Ulcers Neurological: Alert and Oriented x 3 Nutrition: Taking PO's Result Diagrams: 04/16/19 05:39 04/16/19 05:39 Additional Lab and Data: Above labs were pulled into the note, when the note was edited prior to signing. Please see below for labs from the day of consultation. Laboratory Tests 04/05/19 04/05/19 04/10/19 14:47 14:47 06:05 WBC 23.1 H Hgb 11.5 L Hct 36 Plt Count 471 H Sodium Potassium Chloride Carbon Dioxide BUN Creatinine Glucose Hemoglobin A1c 8.7 H Total Protein 5.9 L Albumin 3.2 04/10/19 06:05 WBC Hgb Hct Plt Count Sodium 130 L Potassium 5.0 Chloride 102 Carbon Dioxide 20 L BUN 39 H Creatinine 3.77 H Glucose 177 H Hemoglobin A1c Total Protein Albumin Microbiology and Other Data: Microbiology 04/05/19 14:54 Urine Culture - Final Urine No Growth (<1,000 CFU/mL) Assess/Plan/Problems-Billing Assessment: Ms. Diaz is a 63 yo F with PMH of PV (on hydroxyurea, held 4 weeks ago), Raynaud's, HTN, DM2, chronic let leg ulcer; who presents with SOB, found to have bilat hydronephrosis. Diagnosed with with pneumonia and diffuse interstitial lung changes noted on CT 03/28/19 - finished a course of antibiotics. - Patient Problems (1) Acute worsening of stage 3 chronic kidney disease Current Visit: Yes Status: Acute Code(s): N18.3 - CHRONIC KIDNEY DISEASE, STAGE 3 (MODERATE) SNOMED Code(s): 231590919 Comment: - Creatinine continues to trend down - Unclear etiology; Nephrology suspects tumor lysis syndrome, but Heme does not think this is accurate- clear for discahrge from nephrology standpoint - Previously on IVF, stopped on 04/08/19 - UA shows gross hematuria and micoroalbumin urine high - Hep B & C negative; ANCA previously negative (03/28/19), normal ANYA, dsDNA, [place] & Lambda chains, C3; complement C4 elevated - Renal and bladder US shows 7mm echogenic area in the right upper calyx suggesting calculus, bilateral renal cysts - Renal artery duplex shows bilat patency without significant stenosis - Appreciate Nephrology consult - Uric acid level elevated 04/10/19, received rasburicase x1 under direction of Nephrology; repeat uric acid improved - Uric acid level improving; no difference noted in chilled vs unchilled specimen (04/12 0514 vs 0910) so chilled labs not necessary going forward - Calcium corrects to normal (2) Hydronephrosis Current Visit: Yes Status: Acute Code(s): N13.30 - UNSPECIFIED HYDRONEPHROSIS SNOMED Code(s): 19182399 Comment: - Now resolved - D/t bilat stones which were found to be 80% uric acid - S/p cystoscopy and bilat stent placement by Dr. Purvis on 04/06/19 - Marshall removed post cystoscopy on 04/07/19 - Some hematuria post cystoscopy, likely due to hemorrhagic cystitis (3) UTI (urinary tract infection) Current Visit: Yes Status: Acute Comment: - Culture from 04/08/19 growing >100k colonies MDR Enterococcus - Continue vanco (day 09/23) (4) DM2 (diabetes mellitus, type 2) Current Visit: No Status: Acute Comment: - Continue Lantus, Lispro SS (5) HTN (hypertension) Current Visit: No Status: Acute Code(s): I10 - ESSENTIAL (PRIMARY) HYPERTENSION SNOMED Code(s): 20870138 Comment: - Normotensive - Holding lisinopril - Continue diltiazem (6) Polycythemia vera Current Visit: No Status: Acute Code(s): D45 - POLYCYTHEMIA VERA SNOMED Code(s): 886995013 Comment: - Off hydroxyurea x4 weeks (stopped by Dr. 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 and no hydroxyurea - Appreciate Heme consult; no need to restart hydroxyurea at this point (7) Chronic ulcer of left leg Current Visit: Yes Status: Acute Code(s): L97.929 - NON-PRS CHRONIC ULC UNSP PRT OF L LOW LEG W UNSP SEVERITY SNOMED Code(s): 12815450 Comment: - Follows with wound clinic - Appreciate Wound consult - Continue Santyl and dressing changes per Wound Care recommendations (8) DVT prophylaxis Current Visit: Yes Status: Acute Code(s): Z29.9 - ENCOUNTER FOR PROPHYLACTIC MEASURES, UNSPECIFIED SNOMED Code(s): 941444503 Comment: - SCDs only in the setting of hematuria (9) Full code status Current Visit: Yes Status: Acute Code(s): Z78.9 - OTHER SPECIFIED HEALTH STATUS SNOMED Code(s): 747856342 Comment: Status and Disposition: Inpatient. Anticipate d/c home when medically stable, hopefully 2-3 more days.
[2019-04-16] MEDS: Vancomycin(*) 1,000 MG in NS 0.9% 250 ML* 250 ML IV SCH (12:13)
[2019-04-16 14:45] LABS: Urine Appearance Clear; Urine Bilirubin Negative (Negative); Urine Blood 3+ (Negative); Urine Color Straw; Urine Glucose Negative (Negative); Urine Ketones Negative (Negative); Urine Nitrite Negative (Negative); Urine Protein 1+(30 mg/dL) (Negative); Urine Specific Gravity 1.005 (1.010-1.030); Urine Urobilinogen Negative (Negative)
[2019-04-16 14:48] LABS: Urine Bacteria Absent (Absent); Urine Red Blood Cell 3+(>10/hpf) (Absent); Urine Squamous Epithelial Cell Present (Absent); Urine White Blood Cell 3+(>20/hpf) (Absent)
[2019-04-16] MEDS: oxyCODONE/Acetamin 5/325 MG* TAB PO PRN (21:09)
[2019-04-16] MEDS: Insulin GLARGINE(*) 1 UNITS UNIT SUBCUT SCH (21:10)
[2019-04-17] MEDS: Levothyroxine TAB* 75 MCG TAB PO SCH (05:43)
[2019-04-17] MEDS: Pantoprazole TAB * 40 MG TAB PO SCH (08:35)
[2019-04-17] MEDS: Aspirin EC TAB* 81 MG TAB.EC PO SCH (08:35)
[2019-04-17] MEDS: Torsemide TAB* 20 MG PO SCH (08:35)
[2019-04-17] MEDS: Docusate CAP* 100 MG PO SCH (08:35)
[2019-04-17] MEDS: Allopurinol TAB* 100 MG PO SCH (08:35)
[2019-04-17] MEDS: Diltiazem CD CAP* 180 MG PO SCH (08:36)
[2019-04-17] MEDS: Desipramine TAB* 50 MG PO SCH (08:36)
[2019-04-17] MEDS: Insulin LISPRO* 1 UNITS UNIT SUBCUT SCH ×2 (08:37→12:51)
[2019-04-17] MEDS: Collagenase 250 UNITS/GM OINT* 1 APPLIC OINT TOPICAL SCH (08:38)
[2019-04-17] MEDS ORDERED: Vancomycin Trough Check NOTE FOLLOW UP ONE (11:30)
[2019-04-17] MEDS: Vancomycin(*) 1,000 MG in NS 0.9% 250 ML* 250 ML IV SCH (13:32)
[2019-04-17 16:07] VITALS: BP 143/61
--- NOTE | 2019-04-17 16:59 | CONS ---
CONSULTATION REPORT: DATE OF ADMISSION: 04/05/19 DATE OF CONSULT: 04/17/19 PRIMARY CARE PROVIDER: GUILLERMO Love PROVIDER REQUESTING CONSULTATION: Martha Persaud NP CONSULTING SERVICE: Infectious Disease. PROVIDER: Misa Quiroz NP ATTENDING PHYSICIAN: Dr. Jorge Currie* (iMsa Quiroz NP). REASON FOR CONSULTATION: Multi-drug resistant urinary tract infection in the setting of renal hardware. IMPRESSION: 1. Bilateral pyelonephritis. The patient initially had 2 urine cultures with no growth. After her cystoscopy and bilateral stent placement, she had a urinalysis and urine culture revealing Enterococcus faecium greater than 100, 000. This is a multi-drug resistant, sensitive to linezolid, vancomycin, and gentamicin. She has been afebrile. 2. Leukocytosis. She continues to have leukocytosis, but it is trending down from admission it was 26,000. She denies any urinary symptoms and has improving flank pain. 3. Acute of chronic kidney disease, baseline renal function is stage 3 and followed by Nephrology during her hospitalization. 4. Diabetes mellitus type 2. PLAN/RECOMMENDATIONS: Recommend continuing vancomycin for today to complete 7 days. Then transition to Linezolid 600 mg PO every 12 hours for 7 days. While on Linezolid, she should decrease her in half due to risk of serotonin syndrome. HISTORY OF PRESENT ILLNESS: Ms. Diaz is a 63-year-old female with past medical history significant for polycythemia vera, diabetes mellitus type 2, GERD, hypertension, hypothyroidism, herniated disk, Raynaud's, depression, gout , gastric ulcer, anemia, and JAK2+ ET who presented to the hospital after developing a right flank pain accompanied by hematuria. While in the emergency room, she underwent a CT scan of the abdomen and pelvis showing bilateral nephrolysis and bilateral hydronephrosis and small bilateral pleural effusions. At that time of admission, she had a urinalysis that was unremarkable, had 3+ blood, negative for nitrites, negative leukocyte esterase, trace wbc's, 3+ rbc' s. She was admitted to the hospital under the hospitalist service. She underwent cystoscopy with bilateral retrograde pyelographies and bilateral ureteral stent insertions on 04/06/19. She continued to have marked hematuria with bilateral flank pain. She was continued on ceftriaxone and had a urinary catheter. She was also noted to have acute on chronic kidney disease. They rechecked a urinalysis on 04/06/19, many tests were not performed due to the blood being present, there was 3+ wbc's, 3+ rbc's. This culture also resulted with no growth. She did well, was afebrile. Her leukocytosis remained, but was trending down from 26,000 at the time of admission. On 04/09/19, she was noted to have a CRP of 69.73, and on the 04/10/19, 82.27. She denied any urinary symptoms such as urgency, burning, frequency. Denied any fevers, chills, chest pain, nausea, vomiting, diarrhea, constipation, abdominal pain. She reports that the hematuria has resolved and she continues to have improving right-sided flank pain. She had a repeat urinalysis again on 04/08/19. At that time, it revealed 3+ blood, negative nitrites, 1+ leukocyte esterase, 3+ wbc's, 3+ rbc's , absent bacteria. This urine culture grew Enterococcus faecium which is multidrug resistant, but sensitive to vancomycin which she has been on for 7 days today. Overall, the patient reports that she is feeling well. PAST MEDICAL HISTORY: 1. Polycythemia vera. 2. Diabetes mellitus type 2. 3. GERD. 4. Hypertension. 5. Hypothyroidism. 6. Herniated disks x2. 7. Raynaud's. 8. Depression. 9. Gout. 10. Gastric ulcer. 11. Anemia. 12. JAK2+ ET. PAST SURGICAL HISTORY: 1. Status post cardiac catheterization. 2. Status post tonsillectomy. 3. Status post carpal tunnel release. 4. Status post tubal ligation. 5. Status post lumbar diskectomy. MEDICATIONS: Home medications: 1. Omeprazole 20 mg by mouth twice daily. 2. Milk thistle seed extract 140 mg by mouth daily. 3. Metformin 1000 mg by mouth daily. 4. Lisinopril 5 mg by mouth daily. 5. Levothyroxine 75 mcg by mouth daily. 6. Furosemide 20 mg by mouth daily. 7. Glipizide 10 mg by mouth twice daily. 8. Iron polysaccharide complex 150 mg by mouth daily. 9. Diltiazem 300 mg by mouth daily. 10. Desipramine 50 mg by mouth daily. 11. Aspirin 81 mg by mouth daily. 12. Pioglitazone 45 mg by mouth daily. Hospital medications: 1. Acetaminophen 650 mg by mouth every 4 hours as needed for pain or fever. 2. Allopurinol 100 mg by mouth daily. 3. Aspirin 81 mg by mouth daily. 4. Dulcolax suppository 10 mg per rectum daily as needed for constipation. 5. Calcium carbonate 500 mg by mouth daily as needed for indigestion. 6. Santyl applied topical daily to left lower extremity ulcer. 7. Desipramine 50 mg by mouth daily. 8. Dextrose 25 mL IV push for glucose less than 60 as needed. 9. Diltiazem 360 mg by mouth daily. 10. Colace 100 mg by mouth twice daily. 11. Lantus 10 units subcutaneous daily. 12. Lispro insulin sliding scale subcutaneous with meals and at bedtime. 13. Levothyroxine 75 mcg by mouth daily. 14. Morphine sulfate 4 mg IV every 2 hours as needed for pain. 15. Zofran 4 mg IV every 4 hours as needed for nausea. 16. Percocet 5/325 one tablet by mouth every 4 hours as needed for pain. 17. Protonix 40 mg by mouth twice daily. 18. MiraLAX 17 g by mouth daily as needed for constipation. 19. Senna 8.6 mg by mouth daily as needed for constipation. 20. Torsemide 80 by mouth daily. 21. Vancomycin 1000 mg IV daily. ALLERGIES: SULFA causes rash and itching. FAMILY HISTORY: Denies family history of recurrent resistant infections. Father with a history of coronary artery disease, diabetes. Mother with a history of uterine cancer and an aunt with a history of uterine cancer. Sister with a history of lupus, scleroderma, breast cancer, and Raynaud's. SOCIAL HISTORY: She rarely drinks alcohol, quit smoking 34 years ago. Denies any recreational drug use. REVIEW OF SYSTEMS: I performed a 10-point review of systems. All the pertinent positives and negatives are mentioned in the history of present illness. The remaining review of systems are negative. PHYSICAL EXAM: Vital Signs: Temperature 98.7, heart rate 111, respiratory rate 16, O2 sat 91% on 1 L via nasal cannula, blood pressure 144/63. General Appearance: The patient is alert, appears to be in no acute distress. Head: Normocephalic, atraumatic. ENT: Extraocular movements are intact. No subconjunctival hemorrhage. Moist mucous membranes. Neck: Supple. There is no lymphadenopathy. Neurological: Alert and oriented x4. Cranial nerves II through XII are grossly intact. She moves all extremities. Cardiovascular: Regular rate and rhythm. S1, S2 present. There are no murmurs, rubs, or gallops heard. Respiratory: There is no accessory muscle use. The lungs are clear to auscultation bilateral. Abdomen: Bowel sounds present. Abdomen is large, soft, nontender. There is no CVA tenderness bilateral. Extremities: Trace bilateral lower extremity edema. Musculoskeletal: No clubbing or cyanosis noted. Exhibits good strength in all extremities. She has no tenderness with palpation of the neck, back, or spine. Psychological: Calm and cooperative. Skin: No rashes or abnormalities seen. She does have a dressing to the left lower leg that is covering a venous stasis ulcer. DIAGNOSTIC STUDIES/LAB DATA: Sodium 141, potassium 3.5, chloride 100, CO2 of 31 , BUN 33, creatinine , glucose 119. White blood cell count of 14.2, hemoglobin 9.0, hematocrit 28, platelet count 224. Please see impression and recommendations outlined above. Recommendations have been discussed with Martha Persaud NP. Thank you for asking us to see Ms. Diaz in consultation. The case has been reviewed with my attending, Dr. Jorge Currie, who agrees with the plan of care. MISA MORALES, AHSAN-Fabi [id number]/[facility] #: [id number] [facility]
--- NOTE | 2019-04-19 21:45 | DS ---
CC: Dr. Purvis; Dr. Silvia Connolly; Dr. Currie * DISCHARGE SUMMARY: DATE OF ADMISSION: 04/05/19 DATE OF DISCHARGE: 04/17/19 PROVIDER: Martha Persaud NP PRIMARY CARE PROVIDER: GUILLERMO Lebron ATTENDING PHYSICIAN WHILE IN THE HOSPITAL: Dr. Jaleesa Kenney * (dictated by Martha Persaud NP). PRIMARY DIAGNOSES: 1. Acute on chronic kidney disease with acute renal failure. 2. Hydronephrosis, status post bilateral ureteral stents. 3. Urinary tract infection, multidrug-resistant enterococcus. 4. Nephrolithiasis with obstructing kidney stones. SECONDARY DIAGNOSES: 1. Polycythemia vera. 2. Type-2 diabetes. 3. Gastroesophageal reflux disease. 4. Hypertension. 5. Hypothyroid. 6. Depression. 7. Gout. 8. Gastric ulcers. 9. Anemia. STUDIES COMPLETED WHILE IN THE HOSPITAL: She had a chest x-ray on 04/05/19, radiologist's impression: Diffuse interstitial opacifications suggestive of pulmonary interstitial edema with small bilateral pleural effusions. She had a CT of the abdomen and pelvis on 04/05/19, radiologist's impression: Bilateral nephrolithiasis with bilateral hydronephrosis, marked hepatosplenomegaly, bilateral pleural effusions. She had an abdominal ultrasound on 04/05/19, radiologist's impression: Bilateral nephrolithiasis with mild right hydronephrosis, multiple bilateral renal cysts with a thin separation within a cyst at the upper pole of her left kidney. She had an electrocardiogram, which showed sinus rhythm, sinus tachycardia at a rate of 107 with a right bundle- branch block. She had a retrograde pyelogram for stent placement. She had a repeat renal ultrasound on 04/08/19, right-sided pelvic caliectasis and symmetrical cortical thinning. CONSULTATIONS WHILE IN THE HOSPITAL: She was seen in consultation by Dr. Purvis from Urology, who placed bilateral ureteral stents on 04/06/19 for small nonobstructing calculi and bilateral hydronephrosis. She was seen in consultation by Dr. Connolly from Nephrology as the patient did have marked increase in her creatinine from 1.43 to 3.77 during this hospitalization. 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 She recommended starting allopurinol. Nephrology's recommendations were the patient should continue on torsemide 80 mg daily, daily weights, low-purine diet and she should follow up in Urology within 1 week after discharge. Bring daily weight records. DISCHARGE MEDICATIONS: New medications: 1. Torsemide 80 mg p.o. daily. 2. Allopurinol 100 mg p.o. daily. 3. Linezolid 600 mg p.o. b.i.d. 4. Oxycodone/acetaminophen 1 tablet every 8 hours as needed for moderate to severe pain. Held medications: Desipramine 50 mg. This medication is to be held while the patient is receiving linezolid. The patient was instructed to not to resume this medication until 24 hours after her last dose of linezolid. The patient verbalized understanding in regards to this. Continued home medications: 1. Omeprazole 20 mg p.o. b.i.d. 2. Metformin 1000 mg p.o. b.i.d.. 3. Levothyroxine 75 mg p.o. daily. 4. Glipizide 10 mg p.o. b.i.d.. 5. Iron 150 mg p.o. daily. 6. Diltiazem 300 mg p.o. daily. 7. Aspirin 81 mg p.o. daily. 8. Pioglitazone 45 mg p.o. daily. HISTORY OF PRESENT ILLNESS AND HOSPITAL COURSE: Ms. Diaz is a 63-year-old female with past medical history significant for recent pneumonia, polycythemia vera, type- 2 diabetes, who presented to the emergency room after developing right flank pain at 2 o'clock in the morning accompanied by hematuria. She was found to have bilateral hydronephrosis and ureteral calculi, for which she underwent bilateral ureteral stent placements with Dr. Purvis for management of her underlying hydronephrosis. After her stent placement, the patient developed worsening renal failure and had a creatinine bump from 1.43 to 4.05. She was seen in consultation by Nephrology, who felt this was related to tumor lysis syndrome. The patient was given diuretics and her creatinine did improve throughout her hospitalization. On the day of discharge, her last creatinine was 1.50. The patient did have evaluation of stones which were found to be 80% uric acid and 20% calcium. The patient had subsequent urinalysis and culture, which found her to have a multidrug-resistant enterococcus susceptible to vancomycin and linezolid only. The patient did receive vancomycin for 7 days intravenously during this hospitalization. Given that the patient had ureteral stents in, in discussion with Dr. Purvis, the patient was discharged with linezolid to complete a 14-day course of antibiotics for her multidrug- resistant UTI. Today, on the day of discharge, the patient is feeling well. She has had no further complaints. She does complain of occasional flank pain, which has been controlled with oxycodone. At this time, she is stable for discharge home. REVIEW OF SYSTEMS: The patient denies any fever, chills, chest pain or shortness of breath. Denies any nausea, vomiting, diarrhea or abdominal pain. She denies any hematuria, dysuria, urinary frequency/urgency, pain with urination. She denies any abdominal pain, nausea, vomiting or diarrhea. PHYSICAL EXAMINATION: General: At this time, Ms. Diaz is alert and oriented , resting in her hospital bed. She is in no acute distress. Vital Signs: Blood pressure was 143/61, heart rate was 109, respirations 16, O2 saturation 95 %, temperature was 98.7. HEENT: Head is atraumatic, normocephalic. Eyes: EOMs are intact. Sclerae anicteric and not pale. Oral mucosa is moist. Neck is supple. Cardiac: S1, S2. Regular rate and rhythm. No murmurs, rubs, or gallops. Abdomen: Soft and nontender. Bowel sounds are present x4. Lungs are clear to auscultation bilaterally. No wheezes, rales or rhonchi. Neurologic: She is awake, alert and oriented x3. Speech is clear. Thought process is intact. There are no gross focal deficits. Skin is intact. DISCHARGE PLAN: At this time, Ms. Diaz will be discharged home. Activity as tolerated. 1. Acute kidney injury superimposed on chronic kidney disease, stage III. The patient was seen in consultation by Nephrology during this hospitalization, who has recommended that the patient be placed on allopurinol 100 mg p.o. daily and continue torsemide 80 mg p.o. daily until followup with Nephrology. She will have repeat blood work, CBC, and BMP on . It is suspected that the elevation in her BUN and creatinine was related to tumor lysis syndrome per Nephrology's notes, likely complicated by cardiorenal syndrome. 2. Multidrug resistant enterococcus UTI. The patient was treated with vancomycin x7 days intravenously. She does have bilateral ureteral stents. I did talk to Dr. Purvis, who would like the patient continued on p.o. antibiotics until her stents are removed on . I did consult Infectious Disease, who recommended the patient be placed on linezolid 600 mg p.o. b.i.d. x7 days. During this time, the patient will stop her desipramine and resume 24 hours after her last dose of Linezolid to decrease the risk of serotonin syndrome with the combination of these drugs. 3. Bilateral ureteral stents. She will follow up Dr. Purvis on at 8 a.m. to have her stent removed and further management of her bilateral ureteral stents. 4. GERD. She should continue on omeprazole as previously prescribed. 5. Hypertension. She should continue diltiazem 300 mg p.o. daily and torsemide. 6. Hypothyroid. She should continue on levothyroxine 75 mcg p.o. daily. 7. Type-2 diabetes. She can resume her Glucophage and glipizide as previously prescribed. FOLLOWUP: The patient should follow up with Dr. Purvis on at 8 a.m. for her stent removal. She should follow up with Dr. Connolly from Nephrology. She needs to call for an appointment. She should followup with her primary care provider in 4 to 7 days. The patient was instructed to return to the emergency room for any chest pain, shortness of breath, weakness, fever, chills, any signs of serotonin syndrome, which includes sweating, high fevers, shaking tremors or any other concerning symptoms. CONDITION ON DISCHARGE: Stable. DISPOSITION ON DISCHARGE: Home. TIME SPENT: Time spent on this discharge is 60 minutes, greater than half that time was spent at the bedside reviewing discharge plans and instructions. I have discussed this with my attending, Dr. Jaleesa Kenney. She is in agreement with my plan. MARTHA PERSAUD, STEEL MOLDER [id number]/[facility] #: [id number] KIAN
== END 2019-04-17 17:10 | disposition home or self-care (01) | DRG 463 ==
LOC: ED 12:50 → MED 18:49 → OBSVTOIN 04-06 11:00
PROVIDERS: ADMIT Internal Medicine; ATTEND Internal Medicine
PROC: 0TCB8ZZ Extirpation of Matter from Bladder, Via Natural or Artificial Opening Endoscopic (ICD-10-PCS; 2019-04-06)
PROC: BT14ZZZ Fluoroscopy of Kidneys, Ureters and Bladder (ICD-10-PCS; 2019-04-06)
PROC: 0T9B80Z Drainage of Bladder with Drainage Device, Via Natural or Artificial Opening Endoscopic (ICD-10-PCS; 2019-04-06)
PROC: 0T788DZ Dilation of Bilateral Ureters with Intraluminal Device, Via Natural or Artificial Opening Endoscopic (ICD-10-PCS; principal; 2019-04-06 17:15)
DX: N13.6 Pyonephrosis (principal); E88.3 Tumor lysis syndrome; J90 Pleural effusion, not elsewhere classified; Z16.24 Resistance to multiple antibiotics; L97.929 Non-pressure chronic ulcer of unspecified part of left lower leg with unspecified severity; E87.1 Hypo-osmolality and hyponatremia; Q61.02 Congenital multiple renal cysts; N17.9 Acute kidney failure, unspecified; D45 Polycythemia vera; K21.9 Gastro-esophageal reflux disease without esophagitis; E04.2 Nontoxic multinodular goiter; M47.819 Spondylosis without myelopathy or radiculopathy, site unspecified; M19.042 Primary osteoarthritis, left hand; M19.041 Primary osteoarthritis, right hand; F32.9 Major depressive disorder, single episode, unspecified; M10.9 Gout, unspecified; E03.9 Hypothyroidism, unspecified; E11.22 Type 2 diabetes mellitus with diabetic chronic kidney disease; E11.21 Type 2 diabetes mellitus with diabetic nephropathy; I12.9 Hypertensive chronic kidney disease with stage 1 through stage 4 chronic kidney disease, or unspecified chronic kidney disease; B95.2 Enterococcus as the cause of diseases classified elsewhere; R31.0 Gross hematuria; N18.3 Chronic kidney disease, stage 3 (moderate); E87.5 Hyperkalemia; Z88.2 Allergy status to sulfonamides; Z87.891 Personal history of nicotine dependence
CPT/HCPCS: 36415; 71046; 74177; 74420; 76770; 76775; 80048; 80053; 80202; 81003; 81015; 82043; 82330; 82365; 82570; 82955; 83036; 83605; 83883; 84100; 84155; 84165; 84550; 85025; 85027; 85060; 86038; 86140; 86160; 86225; 86706; 86803; 87077; 87086; 87186; 88112; 88300; 93005; 93975; 96361; 96365; 96375; 99284; A9270-GY; C1876; J0696; J1650; J1940; J2270; J2783; J3010; J3370; Q9967

== ENCOUNTER 2019-06-11 21:13 | Emergency (ER) | payer BC ==
--- OUTSIDE RECORDS SUMMARY | 2019-06-11 21:22 | XMS REPORT | Continuity of Care Document ---
:1955 External Reference #:[id number] Author Name Silvia Connolly MD (transmitted by agent of provider Martha Castaneda) Address [address] , [address] [place] [address] Care Team Providers Name Role Phone Octavia Bills FNP - Nurse Care Team Information [employer] [phone] Practitioner Problems Active Problems Provider Date Arthralgia of the pelvic region and thigh Taran Fishman M.D. Onset: 2016 Lumbar radiculopathy Taran Fishman M.D. Onset: 09/21/2016 Displacement of lumbar intervertebral disc Taran Fishman M.D. Onset: 2016 without myelopathy Convalescence after surgery Taran Fishman M.D. Onset: 03/08/2017 Social History Type Date Description Comments Sex Unknown ETOH Use Rarely consumes alcohol Tobacco Use Start: Unknown End: Patient is a former Quit 1984 Unknown smoker Recreational Drug Use Denies Drug Use Smoking Status Reviewed: 04/24/19 Patient is a former Quit 1985 smoker Exercise Type/Frequency Does not exercise Exercise Type/Frequency Does not exercise due to back issues Allergies, Adverse Reactions, Alerts Active Allergies Reaction Severity Comments Date Sulfa Drugs 09/21/2016 Medications Active Medications SIG Qnty Indications Ordering Provider Date Levothyroxine Sodium 1 po qd Octavia Bills FNP 75mcg Tablets Glipizide XL bid Octavia Bills FNP 10mg Tablets ER 24HR Lisinopril 1 po qd Octavia Bills FNP 5mg Tablets Metformin HCL bid Octavia Bills FNP 1000mg Tablets Omeprazole 1 by mouth bid Unknown 20mg Capsules DR Aspirin 81 1 by mouth every Unknown 81mg Tablets DR day Allopurinol 1 by mouth every Unknown 100mg Tablets day Acetaminophen ER 1 by mouth twice Unknown 650mg a day as needed Tablets ER Diltiazem HCL ER Coated 1 by mouth every Unknown Beads day 360mg Caps ER 24HR Torsemide 80 mg 1 by Unknown 20mg Tablets mouth every day Immunizations Description No Information Available Vital Signs Date Vital Result Comment 04/24/2019 2:07pm Height 64.5 inches 5'4.50" Weight 175.00 lb Heart Rate 102 /min BP Systolic Sitting 136 mmHg left arm reg cuff BP Diastolic Sitting 77 mmHg left arm reg cuff O2 % BldC Oximetry 98 % room air BMI (Body Mass Index) 29.6 kg/m2 08/19/2018 3:25pm Height 64.5 inches 5'4.50" Weight 186.12 lb Clothes/shoes Heart Rate 98 /min Radial BP Systolic Sitting 136 mmHg Lue reg cuff BP Diastolic Sitting 74 mmHg Lue reg cuff BP Systolic Standing 136 mmHg Lue reg cuff BP Diastolic Standing 70 mmHg Lue reg cuff BMI (Body Mass Index) 31.5 kg/m2 Ejection Fraction 60-65% Echo 12/04/2016 Results Test Acquired Date Facility Test Result H/L Range Note Basic Metabolic 04/21/2019 Sodium 139 mmol/L Normal 135-145 [address] [place] [address] [phone] Potassium 3.3 mmol/L Low 3.5-5.0 Chloride 94 mmol/L Low 101-111 Co2 Carbon Dioxide 31 mmol/L Normal 22-32 Anion Gap 14 mmol/L High 2-11 Glucose 264 mg/dL High 70-100 Blood Urea Nitrogen 18 mg/dL Normal 6-24 Creatinine 1.45 mg/dL High 0.51-0.95 BUN/Creatinine Ratio 12.4 Normal 8-20 Calcium 7.5 mg/dL Low 8.6-10.3 Egfr Non- 36.4 >60 Egfr 44.0 >60 1 Laboratory test 04/21/2019 Uric Acid 12.5 mg/dL High 2.3-6.6 [address] [place] [address] [phone] Phosphorus 3.8 mg/dL Normal 2.5-5.0 CBC No Diff 04/21/2019 White Blood 16.2 10^3/uL High 3.5-10.[address] [place] [address] [phone] Red Blood Count 3.27 10^6/uL Low 3.70-4.87 Hemoglobin 9.8 g/dL Low 12.0-16.0 Hematocrit 30 % Low 35-47 Mean Corpuscular Volume 93 fL Normal 80-97 Mean Corpuscular Hemoglobin 30 pg Normal 27-31 Mean Corpuscular HGB Conc 32 g/dL Normal 31-36 Red Cell Distribution Width 21 % High 10-15 Platelet Count 322 10^3/uL Normal 150-450 Mean Platelet Volume 10.1 fL Normal 7.4-10.4 CBC Auto 04/20/2019 White Blood 14.4 10^3/uL High 3.5-10.[address] [place] [address] [phone] Red Blood Count 3.17 10^6/uL Low 3.70-4.87 Hemoglobin 9.5 g/dL Low 12.0-16.0 Hematocrit 30 % Low 35-47 Mean Corpuscular Volume 94 fL Normal 80-97 Mean Corpuscular Hemoglobin 30 pg Normal 27-31 Mean Corpuscular HGB Conc 32 g/dL Normal 31-36 Red Cell Distribution Width 21 % High 10-15 Platelet Count 298 10^3/uL Normal 150-450 Mean Platelet Volume 8.9 fL Normal 7.4-10.4 Abs Neutrophils 13.4 10^3/uL High 1.5-7.7 Abs Lymphocytes 0.6 10^3/uL Low 1.0-4.8 Abs Monocytes 0.3 10^3/uL Normal 0-0.8 Abs Eosinophils 0.1 10^3/uL Normal 0-0.6 Abs Basophils 0.0 10^3/uL Normal 0-0.2 Abs Nucleated RBC 0.1 10^3/uL Granulocyte % 92.8 % Lymphocyte % 3.9 % Monocyte % 2.3 % Eosinophil % 0.7 % Basophil % 0.3 % Nucleated Red Blood Cells % 0.6 Iron & Iron Binding 04/20/2019 Iron 75 g/dL Normal 50-[address] [place] [address] [phone] Unsaturated Iron Binding < 210 g/dL Total Iron Binding Capacity 225 g/dL Low 250-450 Transferrin 161 mg/dL Low 203-362 % Iron Saturation 33 % Normal 15-55 Laboratory test 04/20/2019 Ferritin 642.8 ng/mL High 11-[address] [place] [address] [phone] Surgical 03/10/2019 Surgical SEE RESULT [address] [place] [address] [phone] PDFReport SEE IMAGE 1 Because ethnic data is not always readily available, this report includes an eGFR for both -Americans and non- Americans. The National Kidney Disease Education Program (NKDEP) does not endorse the use of the MDRD equation for patients that are not between the ages of 18 and 70, are , have extremes of body size, muscle mass, or nutritional status, or are non- or non-. According to the National Kidney Foundation, irrespective of diagnosis, the stage of the disease is based on the level of kidney function: Stage Description GFR(mL/min/1.73 m(2)) 1 Kidney damage with normal or decreased GFR 90 2 Kidney damage with mild decrease in GFR 60-89 3 Moderate decrease in GFR 30-59 4 Severe decrease in GFR 15-29 5 Kidney failure <15 (or dialysis) 2 SEE RESULT BELOW Name: TAMIKA GAN : [address]: Chase Castellanos MD Acct: [id number] Unit: [id number] AGE: 63 Location: WOUND Re03/10/19 SEX: F Status: REG REF SPEC: [id number] DUNIA: 03/10/19-101[address] [facility] [address]: Chase Castellanos MD REQ: [id number] RECD: 03/10/19123 STATUS: MICHELE NEGRON DR: Trung Griggs MD _ ORDERED: LEVEL 4 FINAL DIAGNOSIS Left lower leg, biopsy: -- Skin with chronic ischemic changes. -- No ulceration or malignancy identified. CLINICAL HISTORY Polycythemia vera on hydroxyurea PRE-OPERATIVE DIAGNOSIS Chronic non healing ulceration left lower leg GROSS DESCRIPTION The specimen is received in formalin labeled, Left Lower Leg, and consists of a 0.3 cm white-pink circular skin punch excised to a depth of 0.3 cm which is submitted entirely in one cassette. Signed by and Reported on: Andrew Madrid MD 1018 END OF REPORT DEPARTMENT OF PATHOLOGY, [address] [place] [address] Andrew Madrid M.D. Director [facility] # [id number] Procedures Date Code Description Status 03/28/2019 43868 ECHO Transthorasic Realtime 2D W Doppler & Color Flow Hosp Completed 03/10/2019 53861 Punch Biopsy Of Skin Completed 03/03/2019 52002 Debridement Skin,& sq Tissue Completed Medical Devices Description No Information Available Encounters Type Date Location Provider Dx Diagnosis Office Visit 04/16/2019 [facility] N18.3 Chronic kidney 1:03p Assoc,pc Foss, ROLL OR TAPE EDGE MACHINE OPERATOR disease, stage 3 Hospitalists (moderate) N39.0 Urinary tract infection, site not specified B95.2 Enterococcus as the cause of diseases classified elsewhere R31.9 Hematuria, unspecified I12.9 Hypertensive chronic kidney disease w [facility] 1-4/unsp [facility] kdny E11.22 Type 2 diabetes mellitus w diabetic chronic kidney disease Office Visit 04/15/2019 1:02p [facility] N39.0 Urinary tract Assoc,pc Cori, ROLL OR TAPE EDGE MACHINE OPERATOR infection, site Hospitalists not specified N18.3 Chronic kidney disease, stage 3 (moderate) B95.2 Enterococcus as the cause of diseases classified elsewhere I12.9 Hypertensive chronic kidney disease w [facility] 1-4/unsp [facility] kdny E11.22 Type 2 diabetes mellitus w diabetic chronic kidney disease Office Visit 04/14/2019 1:02p [facility] Fartun Lavinia, N18.3 Chronic kidney Assoc,pc ROLL OR TAPE EDGE MACHINE OPERATOR disease, stage 3 Hospitalists (moderate) N39.0 Urinary tract infection, site not specified B95.2 Enterococcus as the cause of diseases classified elsewhere I12.9 Hypertensive chronic kidney disease w [facility] 1-4/unsp [facility] kdny E11.22 Type 2 diabetes mellitus w diabetic chronic kidney disease Office Visit 04/13/2019 1:01p [facility] Fartun Lavinia, N18.3 Chronic kidney Assoc,pc ROLL OR TAPE EDGE MACHINE OPERATOR disease, stage 3 Hospitalists (moderate) N39.0 Urinary tract infection, site not specified B95.2 Enterococcus as the cause of diseases classified elsewhere I12.9 Hypertensive chronic kidney disease w [facility] 1-4/unsp [facility] kdny E11.22 Type 2 diabetes mellitus w diabetic chronic kidney disease Office Visit 04/12/2019 1:01p [facility] Fartun Lavinia, N39.0 Urinary tract Assoc,pc ROLL OR TAPE EDGE MACHINE OPERATOR infection, site Hospitalists not specified N18.3 Chronic kidney disease, stage 3 (moderate) B95.2 Enterococcus as the cause of diseases classified elsewhere I12.9 Hypertensive chronic kidney disease w [facility] 1-4/unsp [facility] kdny E11.22 Type 2 diabetes mellitus w diabetic chronic kidney disease Office Visit 04/11/2019 1:00p [facility] Fartun Lavinia, N39.0 Urinary tract Assoc,pc ROLL OR TAPE EDGE MACHINE OPERATOR infection, site Hospitalists not specified B95.2 Enterococcus as the cause of diseases classified elsewhere N18.3 Chronic kidney disease, stage 3 (moderate) I12.9 Hypertensive chronic kidney disease w stg 1-4/unsp chr kdny E11.22 Type 2 diabetes mellitus w diabetic chronic kidney disease Office Visit 04/11/2019 9:38a [facility] Nephrology Silvia Connolly, N17.9 Acute kidney MD failure, unspecified E87.70 Fluid overload, unspecified E87.1 Hypo-osmolality and hyponatremia Office Visit 04/10/2019 [facility] N13.2 Hydronephrosis with 1:00p Assocedilma M.D. renal and ureteral Hospitalists calculous obstruction N17.9 Acute kidney failure, unspecified I12.9 Hypertensive chronic kidney disease w stg 1-4/unsp chr kdny E11.22 Type 2 diabetes mellitus w diabetic chronic kidney disease N18.3 Chronic kidney disease, stage 3 (moderate) R31.9 Hematuria, unspecified R60.0 Localized edema Office Visit 04/10/2019 9:37a [facility] Nephrology Silvia Irelandmerry, N17.9 Acute kidney MD failure, unspecified E87.70 Fluid overload, unspecified Office Visit 04/10/2019 9:30a Wound Care Ailyn Dove L97.929 Non- prs chronic Center AT [facility] Kathleen, ROLL OR TAPE EDGE MACHINE OPERATOR [facility] unsp prt of l low leg w unsp severity E11.622 Type 2 diabetes mellitus with other skin ulcer Office Visit 04/09/2019 [facility] N13.2 Hydronephrosis with 1:00p Assocedilma M.D. renal and ureteral Hospitalists calculous obstruction N17.9 Acute kidney failure, unspecified E11.22 Type 2 diabetes mellitus w diabetic chronic kidney disease I12.9 Hypertensive chronic kidney disease w stg 1-4/unsp chr kdny N18.3 Chronic kidney disease, stage 3 (moderate) Office Visit 04/08/2019 [facility] N13.2 Hydronephrosis with 1:00p Assedilma krishnamurthy M.D. renal and ureteral Hospitalists calculous obstruction N17.9 Acute kidney failure, unspecified I12.9 Hypertensive chronic kidney disease w stg 1-4/unsp chr kdny N18.3 Chronic kidney disease, stage 3 (moderate) Office Visit 04/07/2019 [facility] Jaleesa N13.2 Hydronephrosis with 12:59p edilma Almaguer M.D. renal and ureteral Hospitalists calculous obstruction R31.9 Hematuria, unspecified N18.3 Chronic kidney disease, stage 3 (moderate) I12.9 Hypertensive chronic kidney disease w stg 1-4/unsp chr kdny [facility] Hydronephrosis with 12:59p edilma Almaguer M.D. renal and ureteral Hospitalists calculous obstruction N18.3 Chronic kidney disease, stage 3 (moderate) E11.9 Type 2 diabetes mellitus without complications I10 Essential (primary) hypertension Office Visit 04/05/2019 [facility] Gloria N13.2 Hydronephrosis with 12:59p Assedilma krishnamurthy, ROLL OR TAPE EDGE MACHINE OPERATOR renal and ureteral Hospitalists calculous obstruction R31.0 Gross hematuria J90 Pleural effusion, not elsewhere classified I10 Essential (primary) hypertension Office Visit 03/31/2019 9:30a Wound Care Chase Castellanos, L97.909 Non-prs chronic Center AT [facility] , FACS ulc unsp prt of unsp low leg w unsp severity E08.622 Diabetes due to underlying condition w oth skin ulcer M10.00 Idiopathic gout, unspecified site Office Visit 03/29/2019 [facility] Jaleesamartin Kenney, J18.9 Pneumonia, 10:38a edilma Almaguer M.D. unspecified Hospitalists organism J96.01 Acute respiratory failure with hypoxia R80.9 Proteinuria, unspecified Office Visit 03/28/2019 [facility] Jaleesa Anne Marie J18.9 Pneumonia, 10:38a edilma Almaguer M.D. 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 unspecified Hospitalists organism J18.9 Pneumonia, unspecified organism E87.1 Hypo-osmolality and hyponatremia E86.0 Dehydration Office Visit 03/24/2019 9:45a Wound Care Chase Castellanos, L97.909 Non-prs chronic Center AT [facility] MD [facility] unsp prt of unsp low leg w unsp severity E08.622 Diabetes due to underlying condition w oth skin ulcer M10.00 Idiopathic gout, unspecified site Office Visit 02/24/2019 8:00a Wound Care Chase Castellanos, L97.909 Non-prs chronic Center AT [facility] GIL BLOOM [facility] unsp prt of unsp low leg w unsp severity E08.622 Diabetes due to underlying condition w oth skin ulcer M10.00 Idiopathic gout, unspecified site Assessments Date Code Description Provider 04/24/2019 N17.9 Acute kidney failure, unspecified Silvia Connolly MD 04/24/2019 M10.9 Gout, unspecified Silvia Connolly MD 04/17/2019 N13.2 Hydronephrosis with renal and Martha Persaud NP ureteral calculous obstruction 04/17/2019 N17.9 Acute kidney failure, unspecified Martha Persaud NP 04/17/2019 N18.9 Chronic kidney disease, unspecified Martha Persaud NP 04/17/2019 B95.2 Enterococcus as the cause of diseases Martha Persaud NP classified elsewhere 04/17/2019 N39.0 Urinary tract infection, site not Martha TEODORO Persaud specified 04/16/2019 N18.3 Chronic kidney disease, stage 3 Martha Persaud NP (moderate) 04/16/2019 N39.0 Urinary tract infection, site not Martha Persaud NP specified 04/16/2019 B95.2 Enterococcus as the cause of diseases Martha Persaud NP classified elsewhere 04/16/2019 R31.9 Hematuria, unspecified Martha Persaud NP 04/16/2019 I12.9 Hypertensive chronic kidney disease Martha Persaud NP with stage 1 through stage 4 chronic kidney disease, or unspecified chronic kidney disease 04/16/2019 E11.22 Type 2 diabetes mellitus with Martha Persaud NP diabetic chronic kidney disease 04/15/2019 N39.0 Urinary tract infection, site not Martha Persaud NP specified 04/15/2019 N18.3 Chronic kidney disease, stage 3 Martha Persaud ROLL OR TAPE EDGE MACHINE OPERATOR (moderate) 04/15/2019 B95.2 Enterococcus as the cause of diseases Martha Persaud NP classified elsewhere 04/15/2019 I12.9 Hypertensive chronic kidney disease Martha Persaud NP with stage 1 through stage 4 chronic kidney disease, or unspecified chronic kidney disease 04/15/2019 E11.22 Type 2 diabetes mellitus with Martha Persaud NP diabetic chronic kidney disease 04/14/2019 N18.3 Chronic kidney disease, stage 3 Fartun Lavinia, ROLL OR TAPE EDGE MACHINE OPERATOR (moderate) 04/14/2019 N39.0 Urinary tract infection, site not Fartun Lavinia, ROLL OR TAPE EDGE MACHINE OPERATOR specified 04/14/2019 B95.2 Enterococcus as the cause of diseases Fartun Lavinia, ROLL OR TAPE EDGE MACHINE OPERATOR classified elsewhere 04/14/2019 I12.9 Hypertensive chronic kidney disease Fartun Lavinia, ROLL OR TAPE EDGE MACHINE OPERATOR with stage 1 through stage 4 chronic kidney disease, or unspecified chronic kidney disease 04/14/2019 E11.22 Type 2 diabetes mellitus with Fartun Lavinia, ROLL OR TAPE EDGE MACHINE OPERATOR diabetic chronic kidney disease 04/13/2019 N18.3 Chronic kidney disease, stage 3 Fartun Lavinia, ROLL OR TAPE EDGE MACHINE OPERATOR (moderate) 04/13/2019 N39.0 Urinary tract infection, site not Fartun Lavinia, ROLL OR TAPE EDGE MACHINE OPERATOR specified 04/13/2019 B95.2 Enterococcus as the cause of diseases Fartun Lavinia, ROLL OR TAPE EDGE MACHINE OPERATOR classified elsewhere 04/13/2019 I12.9 Hypertensive chronic kidney disease Fartun Lavinia, ROLL OR TAPE EDGE MACHINE OPERATOR with stage 1 through stage 4 chronic kidney disease, or unspecified chronic kidney disease 04/13/2019 E11.22 Type 2 diabetes mellitus with Fartun Lavinia, ROLL OR TAPE EDGE MACHINE OPERATOR diabetic chronic kidney disease 04/12/2019 N39.0 Urinary tract infection, site not Fartun Lavinia, ROLL OR TAPE EDGE MACHINE OPERATOR specified 04/12/2019 N18.3 Chronic kidney disease, stage 3 Fartun Lavinia, ROLL OR TAPE EDGE MACHINE OPERATOR (moderate) 04/12/2019 B95.2 Enterococcus as the cause of diseases Fartun Lavinia, ROLL OR TAPE EDGE MACHINE OPERATOR classified elsewhere 04/12/2019 I12.9 Hypertensive chronic kidney disease Fartun Lavinia, ROLL OR TAPE EDGE MACHINE OPERATOR with stage 1 through stage 4 chronic kidney disease, or unspecified chronic kidney disease 04/12/2019 E11.22 Type 2 diabetes mellitus with Fartun Lavinia, ROLL OR TAPE EDGE MACHINE OPERATOR diabetic chronic kidney disease 04/11/2019 N39.0 Urinary tract infection, site not Fartun Laviina, ROLL OR TAPE EDGE MACHINE OPERATOR specified 04/11/2019 N17.9 Acute kidney failure, unspecified Silvia Connolly MD 04/11/2019 B95.2 Enterococcus as the cause of diseases Fartun Lavinia, ROLL OR TAPE EDGE MACHINE OPERATOR classified elsewhere 04/11/2019 E87.70 Fluid overload, unspecified Silvia Connolly MD 04/11/2019 N18.3 Chronic kidney disease, stage 3 Fartun Lavinia, ROLL OR TAPE EDGE MACHINE OPERATOR (moderate) 04/11/2019 E87.1 Hypo-osmolality and hyponatremia Silvia Connolly MD 04/11/2019 I12.9 Hypertensive chronic kidney disease Fartunnicolas Covarrubiasx, ROLL OR TAPE EDGE MACHINE OPERATOR with stage 1 through stage 4 chronic kidney disease, or unspecified chronic kidney disease 04/11/2019 E11.22 Type 2 diabetes mellitus with Fartun Lavinia, ROLL OR TAPE EDGE MACHINE OPERATOR diabetic chronic kidney disease 04/10/2019 N13.2 Hydronephrosis with renal and Jaleesa Kenney M.D. ureteral calculous obstruction 04/10/2019 N17.9 Acute kidney failure, unspecified Silvia Connolly MD 04/10/2019 N17.9 Acute kidney failure, unspecified Jaleesa Kenney M.D. 04/10/2019 L97.929 Non-pressure chronic ulcer of Ailyn Petty Wang NP unspecified part of left lower leg with unspecified severity 04/10/2019 I12.9 Hypertensive chronic kidney disease Jaleesa Kenney M.D. with stage 1 through stage 4 chronic kidney disease, or unspecified chronic kidney disease 04/10/2019 E87.70 Fluid overload, unspecified Silvia Connolly MD 04/10/2019 E11.22 Type 2 diabetes mellitus with Jaleesa Kenney M.D. diabetic chronic kidney disease 04/10/2019 E11.622 Type 2 diabetes mellitus with other Ailyn Wang, ROLL OR TAPE EDGE MACHINE OPERATOR skin ulcer 04/10/2019 N18.3 Chronic kidney disease, stage 3 Jaleesa Kenney M.D. (moderate) 04/10/2019 R31.9 Hematuria, unspecified Jaleesa Kenney M.D. 04/10/2019 R60.0 Localized edema Jaleesa Kenney M.D. 04/09/2019 N13.2 Hydronephrosis with renal and Jaleesa Kenney M.D. ureteral calculous obstruction 04/09/2019 N17.9 Acute kidney failure, unspecified Jaleesa Kenney M.D. 04/09/2019 E11.22 Type 2 diabetes mellitus with Jaleesa Kenney M.D. diabetic chronic kidney disease 04/09/2019 I12.9 Hypertensive chronic kidney disease Jaleesa Kenney M.D. with stage 1 through stage 4 chronic kidney disease, or unspecified chronic kidney disease 04/09/2019 N18.3 Chronic kidney disease, stage 3 Jaleesa Kenney M.D. (moderate) 04/08/2019 N13.2 Hydronephrosis with renal and Jaleesa Kenney M.D. ureteral calculous obstruction 04/08/2019 N17.9 Acute kidney failure, unspecified Jaleesa Kenney M.D. 04/08/2019 I12.9 Hypertensive chronic kidney disease Jaleesa Kenney M.D. with stage 1 through stage 4 chronic kidney disease, or unspecified chronic kidney disease 04/08/2019 N18.3 Chronic kidney disease, stage 3 Jaleesa Kenney M.D. (moderate) 04/07/2019 N13.2 Hydronephrosis with renal and Jaleesa Kenney M.D. ureteral calculous obstruction 04/07/2019 R31.9 Hematuria, unspecified Jaleesa Kenney M.D. 04/07/2019 N18.3 Chronic kidney disease, stage 3 Jaleesa Kenney M.D. (moderate) 04/07/2019 I12.9 Hypertensive chronic kidney disease Jaleesa Kenney M.D. with stage 1 through stage 4 chronic kidney disease, or unspecified chronic kidney disease 04/06/2019 N13.2 Hydronephrosis with renal and Jaleesa Kenney M.D. ureteral calculous obstruction 04/06/2019 N18.3 Chronic kidney disease, stage 3 Jaleesa Kenney M.D. (moderate) 04/06/2019 E11.9 Type 2 diabetes mellitus without Jaleesa Kenney M.D. complications 04/06/2019 I10 Essential (primary) hypertension Jaleesa Kenney M.D. 04/05/2019 N13.2 Hydronephrosis with renal and Gloria Dickey NP ureteral calculous obstruction 04/05/2019 R31.0 Gross hematuria Gloria Dickey NP 04/05/2019 J90 Pleural effusion, not elsewhere Gloria Dickey NP classified 04/05/2019 I10 Essential (primary) hypertension Gloria Dickey, TEODORO 03/31/2019 L97.909 Non-pressure chronic ulcer of Chase Castellanos MD, FACS unspecified part of unspecified lower leg with unspecified severity 03/31/2019 E08.622 Diabetes mellitus due to underlying Chase Castellanos MD, FACS condition with other skin ulcer 03/31/2019 M10.00 Idiopathic gout, unspecified site Chase Castellanos MD, FACS 03/29/2019 J18.9 Pneumonia, unspecified organism Jaleesa Kenney M.D. 03/29/2019 J96.01 Acute respiratory failure with Jaleesa Kenney M.D. hypoxia 03/29/2019 R80.9 Proteinuria, unspecified Jaleesa Kenney M.D. 03/28/2019 I27.20 Pulmonary hypertension, unspecified Alex Gautam M.D. 03/28/2019 R91.8 Other nonspecific abnormal finding of Cora Fried MD lung field 03/28/2019 J18.9 Pneumonia, unspecified organism Jaleesa Kenney M.D. 03/28/2019 J18.9 Pneumonia, unspecified organism Cora Fried MD 03/28/2019 J96.01 Acute respiratory failure with Jaleesa Kenney M.D. hypoxia 03/28/2019 I27.20 Pulmonary hypertension, unspecified Cora Fried MD 03/28/2019 R91.8 Other nonspecific abnormal finding of Jaleesa Kenney M.D. lung field 03/28/2019 R79.89 Other specified abnormal findings of Cora Fried MD blood chemistry 03/27/2019 A41.9 Sepsis, unspecified organism Jaleesa Kenney M.D. 03/27/2019 J18.9 Pneumonia, unspecified organism Jaleesa Kenney M.D. 03/27/2019 E87.1 Hypo-osmolality and hyponatremia Jaleesa Kenney M.D. 03/27/2019 E86.0 Dehydration Jaleesa Kenney M.D. 03/24/2019 L97.909 Non-pressure chronic ulcer of Chase Castellanos MD, FACS unspecified part of unspecified lower leg with unspecified severity 03/24/2019 E08.622 Diabetes mellitus due to underlying Chase Castellanos MD, FACS condition with other skin ulcer 03/24/2019 M10.00 Idiopathic gout, unspecified site Chsae Castellanos MD, FACS 03/10/2019 L97.909 Non-pressure chronic ulcer of Chase Castellanos MD, FACS unspecified part of unspecified lower leg with unspecified severity 03/03/2019 L97.909 Non-pressure chronic ulcer of Chase Castellanos MD, FACS unspecified part of unspecified lower leg with unspecified severity 02/24/2019 L97.909 Non-pressure chronic ulcer of Chase Castellanos MD, FACS unspecified part of unspecified lower leg with unspecified severity 02/24/2019 E08.622 Diabetes mellitus due to underlying Chase Castellanos MD, FACS condition with other skin ulcer 02/24/2019 M10.00 Idiopathic gout, unspecified site Chase Castellanos MD, FACS Plan of Treatment Future Appointment(s):05/15/2019 8:30 am - Silvia Connolly MD at [facility] [id number] /06/2020 - Silvia Connolly MDN17.9 Acute kidney failure, unspecifiedFollow up:2-3 dilmgQ78.9 Gout, unspecified Functional Status Description No Information Available Mental Status Description No Information Available Referrals Description No Information Available
--- OUTSIDE RECORDS SUMMARY | 2019-06-11 21:22 | XMS REPORT | Continuity of Care Document ---
:1955 External Reference #:[id number] Author Name Silvia Connolly MD (transmitted by agent of provider Martha Castaneda) Address [address] , [address] [place] [address] Care Team Providers Name Role Phone Octavia Bills FNP - Nurse Care Team Information Ship Mate [phone] Practitioner Problems Active Problems Provider Date Arthralgia [...] Use Denies Drug Use Smoking Status Reviewed: 05/15/19 Patient is a former Quit 1985 smoker Exercise Type/Frequency Does not exercise Exercise Type/Frequency Does not exercise due to back issues Allergies, Adverse Reactions, Alerts Active Allergies Reaction Severity Comments Date Sulfa Drugs 09/21/2016 Medications Active Medications SIG Qnty Indications Ordering Date Provider Allopurinol 2 by mouth every 180tabs M10.9 Silvia Connolly MD 05/15/2019 100mg Tablets day Colchicine take 1 by mouth 20tabs M10.9 Silvia Connolly MD 05/15/2019 0.6mg Tablets twice a day for 3 days as needed. Levothyroxine Sodium 1 po qd Octavia Bills, IT IN[employer]URE [employer]ANT 75mcg Tablets Glipizide XL bid SanjuOctavia, 10mg Tablets [employer]ANT ER 24HR Metformin HCL bid KiminOctavia, 1000mg [employer]ANT Tablets Omeprazole 1 by mouth once Unknown 20mg Capsules daily DR Aspirin 81 1 by mouth every Unknown 81mg Tablets day DR Acetaminophen ER 1 by mouth twice Unknown 650mg a day as needed Tablets ER Diltiazem HCL ER 1 by mouth every Unknown Coated Beads day 360mg Caps ER 24HR Torsemide 80 mg 1 by Unknown 20mg Tablets mouth every day Gabapentin 1 by mouth three Unknown 300mg Capsules times a day Pioglitazone HCL 1 by mouth every Unknown 45mg day Tablets Desipramine HCL 5 pills at Unknown 10mg bedtime Tablets Immunizations Description No Information Available Vital Signs Date Vital Result Comment 05/15/2019 8:29am Height 64.5 inches 5'4.50" Weight 163.00 lb Heart Rate 101 /min BP Systolic Sitting 127 mmHg L arm BP Diastolic Sitting 68 mmHg L arm O2 % BldC Oximetry 100 % BMI (Body Mass Index) 27.5 kg/m2 04/24/2019 2:07pm Height 64.5 inches 5'4.50" Weight 175.00 lb Heart Rate 102 /min BP Systolic Sitting 136 mmHg left arm reg cuff BP Diastolic Sitting 77 mmHg left arm reg cuff O2 % BldC Oximetry 98 % room air BMI (Body Mass Index) 29.6 kg/m2 Results Test Acquired Date Facility Test Result H/L Range Note Basic Metabolic 05/11/2019 [facility] Sodium 138 mmol/L Normal 135-145 [address] [place] [address] [phone] Potassium 4.1 mmol/L Normal 3.5-5.0 Chloride 102 mmol/L Normal 101-111 Co2 Carbon Dioxide 26 mmol/L Normal 22-32 Anion Gap 10 mmol/L Normal 2-11 Glucose 165 mg/dL High 70-100 Blood Urea Nitrogen 23 mg/dL Normal 6-24 Creatinine 1.05 mg/dL High 0.51-0.95 BUN/Creatinine Ratio 21.9 High 8-20 Calcium 8.4 mg/dL Low 8.6-10.3 Egfr Non- 52.8 >60 Egfr 63.8 >60 2 Laboratory test 05/11/2019 [facility] Uric Acid 11.5 mg/dL High 2.3-6.[address] [place] [address] [phone] Basic Metabolic 04/21/2019 [facility] Sodium 139 mmol/L Normal 135-145 [address] [place] [address] [phone] Potassium 3.3 mmol/L Low 3.5-5.0 Chloride 94 mmol/L Low 101-111 Co2 Carbon Dioxide 31 mmol/L Normal 22-32 Anion Gap 14 mmol/L High 2-11 Glucose 264 mg/dL High 70-100 Blood Urea Nitrogen 18 mg/dL Normal 6-24 Creatinine 1.45 mg/dL High 0.51-0.95 BUN/Creatinine Ratio 12.4 Normal 8-20 Calcium 7.5 mg/dL Low 8.6-10.3 Egfr Non- 36.4 >60 Egfr 44.0 >60 4 Laboratory test 04/21/2019 [facility] Uric Acid 12.5 mg/dL High 2.3-6.6 finding [address] [place] [address] [phone] Phosphorus 3.8 mg/dL Normal 2.5-5.0 CBC No Diff 04/21/2019 [facility] White Blood 16.2 10^3/uL High 3.5-10.[address] [place] [address] [phone] Red Blood Count 3.27 10^6/uL Low 3.70-4.87 [...] fL Normal 7.4-10.4 CBC Auto 04/20/2019 [facility] White Blood 14.4 10^3/uL High 3.5-10.[address] [place] [address] [phone] Red Blood Count 3.17 10^6/uL Low 3.70-4.87 [...] % 0.6 Iron & Iron Binding 04/20/2019 [facility] Iron 75 g/dL Normal 50-212 [address] [place] [address] [phone] Unsaturated Iron Binding < 210 g/dL Total Iron Binding Capacity 225 g/dL Low 250-450 Transferrin 161 mg/dL Low 203-362 % Iron Saturation 33 % Normal 15-55 Laboratory test 04/20/2019 [facility] Ferritin 642.8 ng/mL High 11-307 finding [address] [place] [address] [phone] Surgical 03/10/2019 [facility] Surgical SEE RESULT 5 Pathology [address] [facility] [place] [address] [phone] PDFReport SEE IMAGE 1 kidney function recoverd. uric acid high 2 Because ethnic data is not always readily [...] 15-29 5 Kidney failure <15 (or dialysis) 3 2 weeks 4 Because ethnic data is not always readily [...] 15-29 5 Kidney failure <15 (or dialysis) 5 SEE RESULT BELOW Name: TAMIKA GAN : [address]: Chase Castellanos MD Acct: [id number] Unit: [id number] AGE: 63 Location: WOUND Re03/10/19 SEX: F Status: REG REF SPEC: [id number] DUNIA: 03/10/19-1019 [facility] DR: Chase Castellanos MD REQ: [id number] RECD: 03/10/19-1231 STATUS: MICHELE NEGRON DR: Trung Griggs MD [...] 1018 END OF REPORT DEPARTMENT OF PATHOLOGY, [address] [place] [address] Andrew Madrid M.D. Director [facility] # [id number] Procedures Date Code Description Status 03/28/2019 57652 ECHO Transthorasic Realtime 2D W Doppler & Color Flow Hosp Completed 03/10/2019 39518 Punch Biopsy Of Skin Completed 03/03/2019 05139 Debridement Skin,& sq Tissue Completed Medical Devices Description No Information Available Encounters Type Date Location Provider Dx Diagnosis Office Visit 04/24/2019 [facility] Silvia Connolly MD N17.9 Acute kidney 1:30p failure, unspecified M10.9 Gout, unspecified D45 Polycythemia vera I12.9 Hypertensive chronic kidney disease w stg 1-unsp chr kdny Office Visit 04/17/2019 [facility] Ailyn Dove N13.30 Unspecified 10:28a For Infectious Wang, NAIL FEEDER hydronephrosis Diseases N39.0 Urinary tract infection, site not specified D72.829 Elevated white blood cell count, unspecified N17.9 Acute kidney failure, unspecified E11.22 Type 2 diabetes mellitus w diabetic chronic kidney disease N18.9 Chronic kidney disease, unspecified Office Visit 04/17/2019 [facility] N13.2 Hydronephrosis with 1:03p Assoc,pc [place], NAIL FEEDER renal and ureteral Hospitalists calculous obstruction N17.9 Acute kidney failure, unspecified N18.9 Chronic kidney disease, unspecified B95.2 Enterococcus as the cause of diseases classified elsewhere N39.0 Urinary tract infection, site not specified [facility] Ass[facility],pc [place], NAIL FEEDER disease, stage 3 Hospitalists (moderate) N39.0 Urinary tract infection, site not specified B95.2 Enterococcus as the cause of diseases classified elsewhere R31.9 Hematuria, unspecified I12.9 Hypertensive chronic kidney disease w stg 1-4/unsp chr kdny E11.22 Type 2 diabetes mellitus w diabetic chronic kidney disease Office Visit 04/15/2019 1:02p [facility] N39.0 Urinary tract Assoc,pc [place], NAIL FEEDER infection, site Hospitalists not specified N18.3 Chronic kidney disease, stage 3 (moderate) B95.2 Enterococcus as the cause of diseases classified elsewhere I12.9 Hypertensive chronic kidney disease w stg 1-4/unsp chr kdny E11.22 Type 2 diabetes mellitus w diabetic chronic kidney disease Office Visit 04/14/2019 1:02p [facility] Fartun Lavinia, N18.3 Chronic kidney Assoc,pc NAIL FEEDER disease, stage 3 Hospitalists (moderate) N39.0 Urinary tract infection, site not specified B95.2 Enterococcus as the cause of diseases classified elsewhere I12.9 Hypertensive chronic kidney disease w stg 1-4/unsp [facility] kdny E11.22 Type 2 diabetes mellitus w diabetic chronic kidney disease Office Visit 04/14/2019 2:17p [facility] Silvia Connolly, N17.9 Acute kidney MD failure, unspecified 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 Office Visit 04/13/2019 1:01p [facility] Fartun Lavinia, N18.3 Chronic kidney Assoc,pc NAIL FEEDER disease, stage 3 Hospitalists (moderate) N39.0 Urinary tract infection, site not specified B95.2 Enterococcus as the cause of diseases classified elsewhere I12.9 Hypertensive chronic [facility] E[facility]22 Type 2 diabetes mellitus w diabetic chronic kidney disease Office Visit 04/13/2019 2:17p [facility] Nephrology Silvia Connolly, N17.9 Acute kidney MD failure, unspecified 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 Office Visit 04/12/2019 1:01p [facility] Fartun Lavinia, N39.0 Urinary tract Assoc,pc NAIL FEEDER infection, site Hospitalists not specified N18.3 Chronic kidney disease, stage 3 (moderate) B95.2 Enterococcus as the cause of diseases classified elsewhere I12.9 Hypertensive chronic kidney disease w [facility] 1-4/unsp [facility] kdny E11.22 Type 2 diabetes mellitus w diabetic chronic kidney disease Office Visit 04/11/2019 9:38a [facility]phrology Silvia Connolly, N17.9 Acute kidney MD failure, unspecified E87.70 Fluid overload, unspecified E87.1 Hypo-osmolality and hyponatremia Office Visit 04/11/2019 1:00p [facility] Fartun Lavinia, N39.0 Urinary tract Assoc,pc NAIL FEEDER infection, site Hospitalists not specified B95.2 Enterococcus as the cause of diseases classified elsewhere N18.3 Chronic kidney disease, stage 3 (moderate) I12.9 Hypertensive chronic kidney disease w [facility] 1-4/unsp [facility] kdny E11.22 Type 2 diabetes mellitus w diabetic chronic kidney disease Office Visit 04/10/2019 9:37a [facility]phrology Silvia Connolly, N17.9 Acute kidney MD failure, unspecified E87.70 Fluid overload, unspecified Office Visit 04/10/2019 [facility] Jaleesa N13.2 Hydronephrosis with 1:00p Assoc,edilma Kenney M.D. renal and ureteral Hospitalists calculous obstruction N17.9 Acute kidney failure, unspecified I12.9 Hypertensive chronic kidney disease w stg 1-4/unsp chr kdny E11.22 Type 2 diabetes mellitus w diabetic chronic kidney disease N18.3 Chronic kidney disease, stage 3 (moderate) R31.9 Hematuria, unspecified R60.0 Localized edema Office Visit 04/10/2019 9:30a Wound Care Ailyn Dove L97.929 Non- prs chronic [facility] TEODORO Wang [facility] unsp prt of l low leg w unsp severity E11.622 Type 2 diabetes mellitus with other skin ulcer Office Visit 04/09/2019 [facility] Jaleesa N13.2 Hydronephrosis with 1:00p Assocedilma M.D. renal and ureteral Hospitalists calculous obstruction N17.9 Acute kidney failure, unspecified E11.22 Type 2 diabetes mellitus w diabetic chronic kidney disease I12.9 Hypertensive chronic kidney disease w stg 1-4/unsp chr kdny N18.3 Chronic kidney disease, stage 3 (moderate) Office Visit 04/08/2019 [facility] Jaleesa N13.2 Hydronephrosis with 1:00p Assedilma krishnamurthy M.D. renal and ureteral Hospitalists calculous obstruction N17.9 Acute kidney failure, unspecified I12.9 Hypertensive chronic kidney disease w stg 1-4/unsp chr kdny N18.3 Chronic kidney disease, stage 3 (moderate) Office Visit 04/07/2019 [facility] Jaleesa N13.2 Hydronephrosis with 12:59p Assedilma krishnamurthy M.D. renal and ureteral Hospitalists calculous obstruction R31.9 Hematuria, unspecified N18.3 Chronic kidney disease, stage 3 (moderate) I12.9 Hypertensive chronic kidney disease w stg 1-4/unsp chr kdny Office Visit 04/06/2019 [facility] Jaleesa N13.2 Hydronephrosis with 12:59p Assedilma krishnamurthy M.D. renal and ureteral Hospitalists calculous obstruction N18.3 Chronic kidney disease, stage 3 (moderate) E11.9 Type 2 diabetes mellitus without complications I10 Essential (primary) hypertension Office Visit 04/05/2019 [facility] Castro N13.2 Hydronephrosis with 12:59p Assoc,edilma Dickey NP renal and ureteral Hospitalists calculous obstruction R31.0 Gross hematuria J90 Pleural effusion, not elsewhere classified I10 Essential (primary) hypertension Office Visit 03/31/2019 9:30a Wound Care Chase Castellanos, L97.909 Non-prs chronic [facility] GIL BLOOM [facility] unsp prt of unsp low leg w unsp severity E08.622 Diabetes due to underlying condition w oth skin ulcer M10.00 Idiopathic gout, unspecified site Office Visit 03/29/2019 [facility] Jaleesa Kenney, J18.9 Pneumonia, 10:38a edilma Almaguer M.D. unspecified Hospitalists organism J96.01 Acute respiratory failure with hypoxia R80.9 Proteinuria, unspecified Office Visit 03/28/2019 [facility] Jaleesa Kenney J18.9 Pneumonia, 10:38a edilma Almaguer M.D. unspecified Hospitalists organism J96.01 Acute respiratory failure with hypoxia R91.8 Other nonspecific abnormal finding of lung field Office Visit 03/28/2019 3:28p Pulmonology And Cora R91.8 Other nonspecific [facility] abnormal finding [employer] of lung field J18.9 Pneumonia, unspecified organism I27.20 Pulmonary hypertension, unspecified R79.89 Other specified abnormal findings of blood chemistry Office Visit 03/27/2019 [facility] Jaleesa Kenney, A41.9 Sepsis, 10:37a edilma Almaguer M.D. unspecified Hospitalists organism J18.9 Pneumonia, unspecified organism E87.1 Hypo-osmolality and hyponatremia E86.0 Dehydration Office Visit 03/24/2019 9:45a Wound Care Chase Castellanos, L97.909 Non-prs chronic [facility] MD [facility] unsp prt of unsp low leg w unsp severity E08.622 Diabetes due to underlying condition w oth skin ulcer M10.00 Idiopathic gout, unspecified site Office Visit 02/24/2019 8:00a Wound Care Chase Castellanos, L97.909 Non-prs chronic [facility] MD [facility] unsp prt of unsp low leg w unsp severity E08.622 Diabetes due to underlying condition w oth skin ulcer M10.00 Idiopathic gout, unspecified site Assessments Date Code Description Provider 05/15/2019 M10.9 Gout, unspecified Silvia Connolly MD 04/24/2019 N17.9 Acute kidney failure, unspecified Silvia Connolly MD 04/24/2019 M10.9 Gout, unspecified Silvia Connolly MD 04/24/2019 D45 Polycythemia vera Silvia Connolly MD 04/24/2019 I12.9 Hypertensive chronic kidney disease Silvia Connolly MD with stage 1 through stage 4 chronic kidney disease, or unspecified chronic kidney disease 04/17/2019 N13.30 Unspecified hydronephrosis Ailyn Wang NP 04/17/2019 N13.2 Hydronephrosis with renal and Martha Persaud NP ureteral calculous obstruction 04/17/2019 N39.0 Urinary tract infection, site not Ailyn Wang NP specified 04/17/2019 N17.9 Acute kidney failure, unspecified Martha Persaud NP 04/17/2019 D72.829 Elevated white blood cell count, Ailyn Wang NP unspecified 04/17/2019 N18.9 Chronic kidney disease, unspecified Martha Persaud NP 04/17/2019 N17.9 Acute kidney failure, unspecified Ailyn Wang NP 04/17/2019 B95.2 Enterococcus as the cause of diseases Martha Persaud NP classified elsewhere 04/17/2019 N39.0 Urinary tract infection, site not Martha Persaud NP specified 04/17/2019 E11.22 Type 2 diabetes mellitus with Ailyn Wang NP diabetic chronic kidney disease 04/17/2019 N18.9 Chronic kidney disease, unspecified Ailyn Wang NP 04/16/2019 N18.3 Chronic kidney disease, stage 3 [...] disease, stage 3 Martha Persaud NP (moderate) 04/15/2019 B95.2 Enterococcus as the cause of diseases Martha Persaud NP classified elsewhere 04/15/2019 I12.9 Hypertensive chronic kidney disease Martha Persaud NP with stage 1 through stage 4 chronic kidney disease, or unspecified chronic kidney disease 04/15/2019 E11.22 Type 2 diabetes mellitus with Martha Persaud NP diabetic chronic kidney disease 04/14/2019 N17.9 Acute kidney failure, unspecified Silvia Connolly MD 04/14/2019 N18.3 Chronic kidney disease, stage 3 Fartun Kate NP (moderate) 04/14/2019 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 Silvia Connolly MD 04/14/2019 N39.0 Urinary tract infection, site not Fartun Lavinia, NAIL FEEDER specified 04/14/2019 B95.2 Enterococcus as the cause of diseases Fartun Kate NAIL FEEDER classified elsewhere 04/14/2019 I12.9 Hypertensive chronic kidney disease Fartun Kate, NAIL FEEDER with stage 1 through stage 4 chronic kidney disease, or unspecified chronic kidney disease 04/14/2019 E11.22 Type 2 diabetes mellitus with Fartun Kate NAIL FEEDER diabetic chronic kidney disease 04/13/2019 N17.9 Acute kidney failure, unspecified Silvia Connolly MD 04/13/2019 N18.3 Chronic kidney disease, stage 3 Fartun Lavinia, NAIL FEEDER (moderate) 04/13/2019 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 Silvia Connolly MD 04/13/2019 N39.0 Urinary tract infection, site not Fartun Lavinia, NAIL FEEDER specified 04/13/2019 B95.2 Enterococcus as the cause of diseases Fartun Lavinia, NAIL FEEDER classified elsewhere 04/13/2019 I12.9 Hypertensive chronic kidney disease Fartun Kate NAIL FEEDER with stage 1 through stage 4 chronic kidney disease, or unspecified chronic kidney disease 04/13/2019 E11.22 Type 2 diabetes mellitus with Fartun Lavinia, NAIL FEEDER diabetic chronic kidney disease 04/12/2019 N39.0 Urinary tract infection, site not Fartun Lavinia, NAIL FEEDER specified 04/12/2019 N18.3 Chronic kidney disease, stage 3 Fartun Lavinia, NAIL FEEDER (moderate) 04/12/2019 B95.2 Enterococcus as the cause of diseases Fartun Laivnia, NAIL FEEDER classified elsewhere 04/12/2019 I12.9 Hypertensive chronic kidney disease Fartun Lavinia, NAIL FEEDER with stage 1 through stage 4 chronic kidney disease, or unspecified chronic kidney disease 04/12/2019 E11.22 Type 2 diabetes mellitus with Fartun Lavinia, NAIL FEEDER diabetic chronic kidney disease 04/11/2019 N39.0 Urinary tract infection, site not Fartun Lavinia, NAIL FEEDER specified 04/11/2019 N17.9 Acute kidney failure, unspecified Silvia Connolly MD 04/11/2019 B95.2 Enterococcus as the cause of diseases Fartun Lavinia, NAIL FEEDER classified elsewhere 04/11/2019 E87.70 Fluid overload, unspecified Silvia Connolly MD 04/11/2019 N18.3 Chronic kidney disease, stage 3 Fartun Lavinia, NAIL FEEDER (moderate) 04/11/2019 E87.1 Hypo-osmolality and hyponatremia Silvia Connolly MD 04/11/2019 I12.9 Hypertensive chronic kidney disease Fartun Lavinia, NAIL FEEDER with stage 1 through stage 4 chronic kidney disease, or unspecified chronic kidney disease 04/11/2019 E11.22 Type 2 diabetes mellitus with Fartun Lavinia, NAIL FEEDER diabetic chronic kidney disease 04/10/2019 N13.2 Hydronephrosis with renal and Jaleesa Kenney M.D. ureteral calculous obstruction 04/10/2019 N17.9 Acute kidney failure, unspecified Silvia Connolly MD 04/10/2019 N17.9 Acute kidney failure, unspecified Jaleesa Kenney M.D. 04/10/2019 L97.929 Non-pressure chronic ulcer of Ailyn Wang, NAIL FEEDER unspecified part of left lower leg with [...] 2 diabetes mellitus with other Ailyn Wang, TEODORO skin ulcer 04/10/2019 N18.3 Chronic kidney disease, [...] M.D. complications 04/06/2019 I10 Essential (primary) hypertension Jaelesa Kenney M.D. 04/05/2019 N13.2 Hydronephrosis with renal and Gloria Dickey NP ureteral calculous obstruction 04/05/2019 R31.0 Gross hematuria Gloria Dickey NP 04/05/2019 J90 Pleural effusion, not elsewhere Gloria Dickey NP classified 04/05/2019 I10 Essential (primary) hypertension Gloria Dickey NP 03/31/2019 L97.909 Non-pressure chronic ulcer of Chase [...] ulcer 03/24/2019 M10.00 Idiopathic gout, unspecified site Chase Castellanos MD, FACS 03/10/2019 L97.909 Non-pressure chronic [...] Castellanos MD, FACS Plan of Treatment Future Appointment(s):07/13/2019 8:00 am - Silvia Connolly MD at [facility] [id number] /27/2020 - Silvia Connolly, MDM10.9 Gout, unspecifiedNew Medication:Allopurinol 100 mg - 2 by mouth every dayColchicine 0.6 mg - take 1 by mouth twice a day for 3 days as needed.Follow up:2 months Functional Status Description No Information Available Mental Status Description No Information Available Referrals Description No Information Available
[2019-06-11] MEDS ORDERED: NS 0.9% 1000 ML** 1,000 ML IV ONE (21:27)
[2019-06-11] MEDS ORDERED: Metoclopramide IV* 5 MG/ML 2 ML VIAL IV ONE (21:27)
[2019-06-11] MEDS ORDERED: diPHENhydraMINE IV* 50 MG/ML 1 ml VIAL (BENADRYL) IM ONE (21:27)
--- NOTE | 2019-06-11 21:35 | ED ---
Headache - HPI Summary HPI Summary: 63-year-old female with significant past medical history of polycythemia vera, type 2 diabetes, hypertension, hypothyroidism, gastric ulcers, depression, gout , anemia presents to the emergency department today complaining ofa gradual onset 8 out 10 frontal "throbbing" headache which began approximately 10:00 his afternoon. Patient states she took Percocet at 1630 and Aleve at 1900 for relief however this was not successful. Patient endorses a history of headaches. Patient states this is not the worst headache of her life and denies recent fevers, back pain, neck pain. Patient is in no acute distress. Patient denies recent trauma. Patient denies family history of subarachnoid hemorrhage, polycystic kidney disease. Patient has no neurological deficits and is alert and oriented 3. Patient otherwise feels well and denies fever, chest pain, abdominal pain, pain with urination, rash, nausea, vomiting, diarrhea, shortness of breath. Patient denies recent recreational drug use or alcohol use. - History Of Current Complaint Chief Complaint: EDHeadache Stated Complaint: HEADACHE PER PT Time Seen by Provider: 06/11/19 21:22 Hx Obtained From: Patient Onset/Duration: Gradual Onset Initially Headache Was: Severe Currently Pain Is: Severe Character: Pressure Location of Headache: Frontal Aggravating Factor: Bright Lights - Allergies/Home Medications Allergies/Adverse Reactions: Allergies Allergy/AdvReac Type Severity Reaction Status Date / Time Sulfa (Sulfonamide Allergy Rash And Verified 06/11/19 21:16 Antibiotics) Itching Home Medications: Home Medications Levothyroxine TAB* [Synthroid 75 MCG TAB*] 75 mcg PO DAILY 01/07/16 [History Confirmed 04/05/19] Aspirin [Aspirin 81 MG TAB] 81 mg PO DAILY 12/02/16 [History Confirmed 04/05/19] Omeprazole 20 mg PO BID 01/12/17 [History Confirmed 04/05/19] dilTIAZem HCl [Cartia Xt] 300 mg PO DAILY 01/12/17 [History Confirmed 04/05/19] Metformin HCl [Glucophage] 1,000 mg PO BID #0 02/10/17 [Rx Confirmed 04/05/19] Pioglitazone HCl 45 mg PO DAILY 03/27/19 [History Confirmed 04/05/19] glipiZIDE TAB* [Glucotrol TAB*] 10 mg PO BID 03/27/19 [History Confirmed ] Iron Polysaccharide Complex [Ferrex 150] 150 mg PO DAILY 04/05/19 [History Confirmed 04/05/19] Acetaminophen TAB* [Tylenol TAB*] 650 mg PO Q4H PRN tab 04/17/19 [Rx] Docusate CAP* [Colace Cap*] 100 mg PO BID cap 04/17/19 [Rx] Linezolid TAB* [Zyvox 600 MG TAB*] 600 mg PO BID #14 tab 04/17/19 [Rx] oxyCODONE/Acetamin 5/325 MG* [Percocet 5/325 TAB*] 1 tab PO Q8H PRN 2 Days #6 tab MDD 3 04/17/19 [Rx] Allopurinol TAB* [Zyloprim 100 MG TAB*] 100 mg PO DAILY #30 tab 04/19/19 [Rx] Torsemide TAB* [Demadex 20 MG*] 80 mg PO DAILY #28 tab 04/19/19 [Rx] PMH/Surg Hx/FS Hx/Imm Hx Endocrine/Hematology History: Reports: Hx Blood Disorders - JAK2 plus ET, Hx Bone Marrow Disease - Polycythemia Vera, Hx Diabetes, Hx Anemia - on iron Denies: Hx Thyroid Disease Cardiovascular History: Reports: Hx Hypertension - ON MEDS, Other Cardiovascular Problems/Disorders - Raynauds Denies: Hx Angina, Hx Coronary Artery Disease, Hx Hypercholesterolemia, Hx Pacemaker/ICD, Hx Valvular Heart Disease Comment Only: Hx Myocardial Infarction - ? 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 Denies: Hx Ulcer History: Reports: Hx Kidney Stones - with hydronephrosis Denies: Hx Renal Disease Musculoskeletal History: Reports: Hx Arthritis - back and hands, Hx Back Problems - Cspine fusion, Lspine diskectomy with fusion, Other Musculoskeletal History - Carpal tunnel Denies: Hx Scoliosis Sensory History: Reports: Hx Contacts or Glasses - glasses Denies: Hx Deafness, Hx Hearing Aid, Hx Hearing Problem Opthamlomology History: Reports: Hx Contacts or Glasses - glasses Neurological History: Reports: Hx Nerve Disease - spine, Other Neuro Impairments /Disorders - fx skull at 2 yrs of age Denies: Hx Headaches Psychiatric History: Reports: Hx Depression - on med Denies: Hx Panic Disorder - Cancer History Hx Hematologic Symptoms: Yes - JAK2 plus ET Hx Chemotherapy: No Hx Radiation Therapy: No Hx Palliative Cancer Treatment: No - Surgical History Surgery Procedure, Year, and Place: Tonsilectomy. tubal ligation. anterior cervical discectomy w/ fusion. Carpal tunnel (Right). LSP - DISCECTOMY 02/02 Hx Anesthesia Reactions: No Infectious Disease History: No Infectious Disease History: Denies: Hx Clostridium Difficile, Hx Hepatitis, Hx Human Immunodeficiency Virus (HIV), Hx of Known/Suspected MRSA, Hx Shingles, Hx Tuberculosis, Hx Known/ Suspected VRE, Hx Known/Suspected VRSA, History Other Infectious Disease, Traveled Outside the [place] in Last 30 Days - Family History Known Family History: Positive: Hypertension, Other Family History: Lupus. Rheumatoid arthritis. - Social History Alcohol Use: None Hx Substance Use: No Substance Use Type: Reports: None Hx Tobacco Use: Yes Smoking Status (MU): Former Smoker Type: Cigarettes Amount Used/How Often: smoked for 12-13 years 1ppd Have You Smoked in the Last Year: No Review of Systems Constitutional: Negative Eyes: Negative ENT: Negative Cardiovascular: Negative Respiratory: Negative Gastrointestinal: Negative Genitourinary: Negative Musculoskeletal: Negative Skin: Negative Positive: Headache. Negative: Weakness, Paresthesia, Numbness, Syncope, Slurred Speech Psychological: Normal All Other Systems Reviewed And Are Negative: Yes Physical Exam - Summary Physical Exam Summary: Patient is in no acute distress. Negative Kernig's and Brudzinski's. Patient is alert and oriented 3. GCS 15. Triage Information Reviewed: Yes Vital Signs On Initial Exam: Initial Vitals Temp Pulse Resp BP Pulse Ox 97.7 F 99 15 177/102 96 06/11/19 21:14 06/11/19 21:14 06/11/19 21:14 06/11/19 21:14 06/11/19 21:14 Vital Signs Reviewed: Yes Appearance: Positive: Well-Appearing, No Pain Distress, Well-Nourished Skin: Positive: Warm, Skin Color Reflects Adequate Perfusion Eyes: Positive: EOMI, ALEJANDRO ENT: Positive: Hearing grossly normal Respiratory/Lung Sounds: Positive: Clear to Auscultation, Breath Sounds Present Cardiovascular: Positive: RRR, S1, S2 Abdomen Description: Positive: Nontender, Soft Bowel Sounds: Positive: Present Musculoskeletal: Positive: Strength/ROM Intact Neurological: Positive: Sensory/Motor Intact, Alert, Oriented to Person Place, Time, Normal Gait, Facial Symmetry, Speech Normal Psychiatric: Positive: Normal, Affect/Mood Appropriate AVPU Assessment: Alert Procedures - Sedation Patient Received Moderate/Deep Sedation with Procedure: No Diagnostics - Vital Signs Vital Signs Temp Pulse Resp BP Pulse Ox 06/11/19 21:14 97.7 F 99 15 177/102 96 - Laboratory Result Diagrams: 06/11/19 21:33 06/11/19 21:33 Lab Statement: Any lab studies that have been ordered have been reviewed, and results considered in the medical decision making process. Headache Course/Dx - Course Course Of Treatment: Patient was evaluated in the emergency department today for headache. Vitals noted and stable. Patient was given an IV as well as 1 L normal saline, 50 mg Benadryl, 10 mg Reglan. Laboratory studies returned showing. Chest x-ray shows no obvious infiltrate however there is noted interstitial disease. Chest x-ray is similar when compared to previous done [address] of the brain was done which found no evidence of fracture or intracranial bleed. Laboratory studies returned showing White blood count 24.7 , red blood cells 4.97. These are both elevated and consistent with polycythemia vera. patients labs suggest dehydration but her electrolytes are otherwise unremarkable. CRP is not elevated at 7.35. Patient appears not be suffering from acute medical process this time and her headache resolved after being given medications. Patient discharged with outpatient follow-up. - Diagnoses Differential Diagnosis/HQI/PQRI: Epidural Hematoma, Subdural Hematoma, Meningitis, Migraine, Subarachnoid Hemorrhage, Tension Headache, Viral Syndrome Provider Diagnoses: Headache Discharge ED - Sign-Out/Discharge Documenting (check all that apply): Patient Departure - Discharge Plan Condition: Stable Disposition: HOME Patient Education Materials: Acute Headache (ED) Referrals: Simin Martinez [Primary Care Provider] - Cora Fried MD [Medical Doctor] - 5 Days Additional Instructions: You were seen in the emergency department today due to a headache. Imaging was done as well as laboratory studies which found no acute medical process requiring intervention at this time. During your stay a chest x-ray done which found interstitial lung disease however this was unchanged when compared to prior chest x-rays done 1 month ago. Please follow-up with the is support analyst for further evaluation and management of this. Please follow up with your primary care provider in 3-5 days for further evaluation and management of your headaches. Please return to the emergency department immediately if you develop any new or worsening symptoms. Please take diphenhydramine 50mg twice daily as needed for headache. - Billing Disposition and Condition Condition: STABLE Disposition: Home
[2019-06-11 21:40] LABS: Hematocrit 43 % (35-47); Hemoglobin 13.8 g/dL (12.0-16.0); Mean Corpuscular HGB Conc 32 g/dL (31-36); Mean Corpuscular Hemoglobin 28 pg (27-31); Mean Corpuscular Volume 87 fL (80-97); Mean Platelet Volume 8.4 fL (7.4-10.4); Platelet Count 494 10^3/uL (150-450); Red Blood Count 4.97 10^6 /uL (3.70-4.87); Red Cell Distribution Width 22 % (10-15); White Blood Count 24.7 10^3/uL (3.5-10.8)
[2019-06-11 21:56] LABS: ABS Basophils 0.1 10^3/ul (0-0.2); ABS Eosinophils 0.2 10^3/ul (0-0.6); ABS Lymphocytes 1.1 10^3/ul (1.0-4.8); ABS Monocytes 0.3 10^3/ul (0-0.8); ABS Neutrophils 23.1 10^3/ul (1.5-7.7); ABS Nucleated RBC 0.3 10^3/ul; Albumin 3.8 g/dL (3.2-5.2); Albumin/Globulin Ratio 1.6 (1-3); BUN/Creatinine Ratio 26.8 (8-20); Calcium 9.2 mg/dL (8.6-10.3); EGFR African American 59.3 (>60); Eosinophil % 0.8 %; Globulin 2.4 g/dL (2-4); Lymphocyte % 4.3 %; Nucleated Red Blood Cells % 1.3; Potassium 4.6 mmol/L (3.5-5.0); Total Bilirubin 0.6 mg/dL (0.2-1.0); Total Protein 6.2 g/dL (6.4-8.9)
[2019-06-11] MEDS ORDERED: diPHENhydraMINE IV* 50 MG/ML 1 ml VIAL (BENADRYL) IV ONE (21:56)
[2019-06-11 22:17] LABS: C Reactive Protein 7.35 mg/L (<8.01)
[2019-06-11] MEDS ORDERED: Magnesium Sulfate 2 GM IV* 2 GM/50 ML BAG IVPB ONE (22:44)
[2019-06-11 23:54] VITALS: BP 158/92
== END 2019-06-12 00:30 | disposition home or self-care (01) ==
LOC: ED 21:13
DX: R51 Headache (principal); J84.9 Interstitial pulmonary disease, unspecified; D64.9 Anemia, unspecified; E03.9 Hypothyroidism, unspecified; E11.9 Type 2 diabetes mellitus without complications; Z79.84 Long term (current) use of oral hypoglycemic drugs; I10 Essential (primary) hypertension; I73.00 Raynaud's syndrome without gangrene; K21.9 Gastro-esophageal reflux disease without esophagitis; F32.9 Major depressive disorder, single episode, unspecified; Z88.2 Allergy status to sulfonamides; Z87.891 Personal history of nicotine dependence
CPT/HCPCS: 36415; 70450; 71046; 80053; 85025; 86140; 96361; 96365; 96375; 99283; J1200; J2765; J3475

== ENCOUNTER 2020-01-13 08:25 | Inpatient (IN) ==
[2020-01-13] MEDS ORDERED: Piperacillin/Tazobac ADVAN 3.375 GM in NS 0.9% 100 ml BAG 100 ML IVPB ONE (08:37)
[2020-01-13] MEDS ORDERED: LACTATED RINGERS IV SCH (09:00)
[2020-01-13 09:49] LABS: Hematocrit 34 % (35-47); Hemoglobin 11.4 g/dL (12.0-16.0); Mean Corpuscular HGB Conc 33 g/dL (31-36); Mean Corpuscular Hemoglobin 31 pg (27-31); Mean Corpuscular Volume 94 fL (80-97); Mean Platelet Volume 10.3 fL (7.4-10.4); Platelet Count 150 10^3/uL (150-450); Red Blood Count 3.66 10^6 /uL (3.70-4.87); Red Cell Distribution Width 18 % (10-15); White Blood Count 19.4 10^3/uL (3.5-10.8)
[2020-01-13 09:59] LABS: Activated Partial Thrombo Time 31.2 seconds (26.0-38.0); INR 1.59 (0.82-1.09)
[2020-01-13 10:06] LABS: ALT 9 U/L (7-52); AST 13 U/L (13-39); Albumin 3.5 g/dL (3.2-5.2); Albumin/Globulin Ratio 1.4 (1-3); Alkaline Phosphatase 94 U/L (34-104); Anion Gap 12 mmol/L (2-11); BUN/Creatinine Ratio 19.2 (8-20); Blood Urea Nitrogen 20 mg/dL (6-24); CO2 Carbon Dioxide 21 mmol/L (22-32); Chloride 100 mmol/L (101-111); EGFR African American 64.4 (>60); EGFR Non-African American 53.2 (>60); Globulin 2.5 g/dL (2-4); Glucose 293 mg/dL (70-100); Potassium 3.5 mmol/L (3.5-5.0); Sodium 133 mmol/L (135-145)
[2020-01-13 10:11] LABS: Troponin I 0.06 ng/mL (<0.03)
[2020-01-13] MEDS ORDERED: Vancomycin 1,250 MG in NS 0.9% 250 ml 250 ML IVPB ONE (10:15)
[2020-01-13 11:20] LABS: ABS Basophils 0.1 10^3/ul (0-0.2); ABS Lymphocytes 0.5 10^3/ul (1.0-4.8); ABS Monocytes 0.7 10^3/ul (0-0.8); ABS Nucleated RBC 0.1 10^3/ul; Eosinophil % 0.1 %; Lymphocyte % 2.6 %; Nucleated Red Blood Cells % 0.5
[2020-01-13] MEDS ORDERED: Ondansetron 4 mg VIAL 2 MG/ML 2 ml VIAL IV PRN (11:20)
[2020-01-13 11:24] LABS: Polychromasia 1+
[2020-01-13] MEDS ORDERED: Dextrose 50% Syringe 50 ml 25 GM/50 ML SYRINGE IV PUSH PRN (11:56)
[2020-01-13 13:08] LABS: Troponin I 0.06 ng/mL (<0.03)
[2020-01-13] MEDS: Enoxaparin 40 MG/0.4 ML SYR SUBCUT SCH (15:16)
[2020-01-13] MEDS: cefTRIAXone 1 gm/50 mL NS BAG 1 GM/50 ML BAG IVPB SCH (15:16)
[2020-01-13] MEDS ORDERED: Influenza VAC *QUAD* 2020-21* 0.5 ML SYRINGE IM ONE (16:00)
[2020-01-13] MEDS: DOXYcycline 100 MG in NS 0.9% 250 ml 250 ML IVPB SCH (16:54)
[2020-01-13 18:14] LABS: Urine Appearance Cloudy; Urine Bilirubin Negative (Negative); Urine Blood 1+ (Negative); Urine Color Yellow; Urine Glucose 1+(50 mg/dL) (Negative); Urine Ketones Trace (Negative); Urine Nitrite Negative (Negative); Urine Protein 3+(>=500 mg/dL) (Negative); Urine Specific Gravity 1.013 (1.010-1.030); Urine Urobilinogen Negative (Negative)
[2020-01-13 18:16] LABS: Urine Bacteria Absent (Absent); Urine Red Blood Cell 1+(3-5/hpf) (Absent); Urine Squamous Epithelial Cell Present (Absent); Urine White Blood Cell Absent (Absent)
[2020-01-13 20:51] LABS: Influenza A Molecular Negative (Negative); Influenza B Molecular Negative (Negative)
[2020-01-13] MEDS ORDERED: Metoprolol Tartrate 5 mg VIAL 5 ml VIAL (1 mg/ml) IV ONE (21:40)
[2020-01-14] MEDS ORDERED: NS 0.9% 1000 ml BAG 1,000 ML IV ONE (05:07)
[2020-01-14] MEDS: DOXYcycline 100 MG in NS 0.9% 250 ml 250 ML IVPB SCH ×2 (05:31→17:40)
[2020-01-14 06:37] LABS: Hematocrit 31 % (35-47); Hemoglobin 10.1 g/dL (12.0-16.0); Mean Corpuscular HGB Conc 33 g/dL (31-36); Mean Corpuscular Hemoglobin 31 pg (27-31); Mean Corpuscular Volume 95 fL (80-97); Platelet Count 124 10^3/uL (150-450); Red Blood Count 3.23 10^6 /uL (3.70-4.87); Red Cell Distribution Width 18 % (10-15); White Blood Count 13.2 10^3/uL (3.5-10.8)
[2020-01-14 06:50] LABS: BUN/Creatinine Ratio 18.5 (8-20); Calcium 7.5 mg/dL (8.6-10.3); EGFR African American 74.1 (>60); EGFR Non-African American 61.3 (>60); Magnesium 1.4 mg/dL (1.9-2.7); Potassium 3.6 mmol/L (3.5-5.0)
[2020-01-14 07:25] LABS: ABS Basophils 0.1 10^3/ul (0-0.2); ABS Lymphocytes 0.5 10^3/ul (1.0-4.8); ABS Monocytes 0.6 10^3/ul (0-0.8); ABS Nucleated RBC 0.1 10^3/ul; Eosinophil % 0.1 %; Lymphocyte % 3.7 %; Nucleated Red Blood Cells % 0.4
[2020-01-14 07:42] LABS: Polychromasia 1+
[2020-01-14] MEDS ORDERED: Magnesium Sulfate IV 3 GM in NS 0.9% 100 ml BAG 100 ML IVPB ONE (08:30)
[2020-01-14] MEDS: Aspirin EC 81 mg TAB.EC (enteric coated) PO SCH (08:34)
[2020-01-14] MEDS: PTO: Ruxolitinib 10 mg TAB (NF) PO SCH (08:35)
[2020-01-14] MEDS ORDERED: CALCIUM GLUCONATE 1GM/50ML NS 1 GM/50 ML BAG IV ONE (10:00)
[2020-01-14] MEDS: Enoxaparin 40 MG/0.4 ML SYR SUBCUT SCH (12:13)
[2020-01-14] MEDS: cefTRIAXone 1 gm/50 mL NS BAG 1 GM/50 ML BAG IVPB SCH (15:37)
[2020-01-15] MEDS: DOXYcycline 100 MG in NS 0.9% 250 ml 250 ML IVPB SCH ×2 (05:39→20:59)
[2020-01-15 06:20] LABS: EGFR African American 55.1 (>60); EGFR Non-African American 45.5 (>60); Potassium 3.3 mmol/L (3.5-5.0)
[2020-01-15 07:17] LABS: Magnesium 1.7 mg/dL (1.9-2.7)
[2020-01-15] MEDS ORDERED: Magnesium Sulfate 2 gm BAG 2 GM/50 ML BAG IVPB ONE (08:38)
[2020-01-15] MEDS: Aspirin EC 81 mg TAB.EC (enteric coated) PO SCH (08:41)
[2020-01-15] MEDS ORDERED: Potassium Chlor 20 meq TAB.ER PO ONE (09:05)
[2020-01-15] MEDS: Enoxaparin 40 MG/0.4 ML SYR SUBCUT SCH (12:34)
[2020-01-15] MEDS: PTO: Ruxolitinib 10 mg TAB (NF) PO SCH (16:43)
[2020-01-16] MEDS: DOXYcycline 100 MG in NS 0.9% 250 ml 250 ML IVPB SCH ×2 (06:20→18:12)
[2020-01-16] MEDS ORDERED: Furosemide 40 mg/4 ml IV VIAL IV ONE ×2 (09:06→14:37)
[2020-01-16] MEDS: Aspirin EC 81 mg TAB.EC (enteric coated) PO SCH (09:18)
[2020-01-16] MEDS: PTO: Ruxolitinib 10 mg TAB (NF) PO SCH (09:19)
[2020-01-16 09:32] LABS: BUN/Creatinine Ratio 16.1 (8-20); Calcium 8.1 mg/dL (8.6-10.3); EGFR African American 59.1 (>60); EGFR Non-African American 48.8 (>60); Potassium 3.6 mmol/L (3.5-5.0)
[2020-01-16 12:23] LABS: Magnesium 1.6 mg/dL (1.9-2.7)
[2020-01-16] MEDS: Enoxaparin 40 MG/0.4 ML SYR SUBCUT SCH (12:42)
[2020-01-16] MEDS ORDERED: Magnesium Sulfate 2 gm BAG 2 GM/50 ML BAG IVPB ONE (13:28)
[2020-01-16] MEDS ORDERED: NS 0.9% 250 ml 250 ML ONE (18:07)
[2020-01-17] MEDS ORDERED: Furosemide 40 mg/4 ml IV VIAL IV ONE (07:34)
[2020-01-17] MEDS: DOXYcycline 100 MG in NS 0.9% 250 ml 250 ML IVPB SCH ×2 (07:34→17:35)
[2020-01-17] MEDS: Aspirin EC 81 mg TAB.EC (enteric coated) PO SCH (09:22)
[2020-01-17] MEDS: PTO: Ruxolitinib 10 mg TAB (NF) PO SCH (09:23)
[2020-01-17 10:18] LABS: BUN/Creatinine Ratio 20.6 (8-20); Calcium 8.6 mg/dL (8.6-10.3); EGFR African American 69.7 (>60); EGFR Non-African American 57.6 (>60); Magnesium 1.6 mg/dL (1.9-2.7); Potassium 3.4 mmol/L (3.5-5.0)
[2020-01-17] MEDS: Enoxaparin 40 MG/0.4 ML SYR SUBCUT SCH (12:03)
[2020-01-17] MEDS ORDERED: Potassium Chlor 10 meq TAB PO ONE (14:07)
[2020-01-17] MEDS: Furosemide 40 mg/4 ml IV VIAL IV ONE ×2 (17:27→17:59)
[2020-01-18 06:42] LABS: Calcium 8.4 mg/dL (8.6-10.3); Magnesium 1.3 mg/dL (1.9-2.7); Potassium 3.5 mmol/L (3.5-5.0)
[2020-01-18 06:48] LABS: BUN/Creatinine Ratio 18.1 (8-20); EGFR African American 63.6 (>60); EGFR Non-African American 52.6 (>60)
[2020-01-18] MEDS ORDERED: Magnesium Sulfate IV 3 GM in NS 0.9% 100 ml BAG 100 ML IVPB ONE (07:14)
[2020-01-18] MEDS ORDERED: Furosemide 40 mg/4 ml IV VIAL IV ONE (08:40)
[2020-01-18] MEDS: Aspirin EC 81 mg TAB.EC (enteric coated) PO SCH (08:45)
[2020-01-18] MEDS: PTO: Ruxolitinib 10 mg TAB (NF) PO SCH (11:16)
[2020-01-18] MEDS: Enoxaparin 40 MG/0.4 ML SYR SUBCUT SCH (13:23)
[2020-01-18] MEDS ORDERED: Insulin GLARGINE 100 un/ml 10 ml VIAL SUBCUT SCH (15:00)
[2020-01-18 15:08] VITALS: BP 154/54
== END 2020-01-18 16:30 | disposition home or self-care (01) | DRG 871 ==
LOC: ED 08:25 → MED 11:21
PROVIDERS: ADMIT Student in an Organized Health Care Education/Training Program; ATTEND Internal Medicine

== ENCOUNTER 2021-02-19 13:03 | Inpatient (IN) ==
[2021-02-19 14:13] LABS: Hematocrit 33 % (35-47); Hemoglobin 11.1 g/dL (12.0-16.0); Mean Corpuscular HGB Conc 34 g/dL (31-36); Mean Corpuscular Hemoglobin 28 pg (27-31); Mean Corpuscular Volume 83 fL (80-97); Mean Platelet Volume 10.2 fL (7.4-10.4); Platelet Count 306 10^3/uL (150-450); Red Blood Count 3.98 10^6 /uL (3.70-4.87); Red Cell Distribution Width 20 % (10-15); White Blood Count 17.6 10^3/uL (3.5-10.8)
[2021-02-19 14:17] LABS: Albumin 3.5 g/dL (3.2-5.2); Albumin/Globulin Ratio 1.1 (1-3); Calcium 8.5 mg/dL (8.6-10.3); Globulin 3.2 g/dL (2-4); Potassium 3.2 mmol/L (3.5-5.0); Total Bilirubin 0.6 mg/dL (0.2-1.0); Total Protein 6.7 g/dL (6.4-8.9)
[2021-02-19 15:11] LABS: ABS Basophils 0.1 10^3/ul (0-0.2); ABS Eosinophils 0.1 10^3/ul (0-0.6); ABS Lymphocytes 0.9 10^3/ul (1.0-4.8); ABS Monocytes 0.7 10^3/ul (0-0.8); ABS Neutrophils 15.8 10^3/ul (1.5-7.7); ABS Nucleated RBC 0.1 10^3/ul; Anisocytosis 2+; Eosinophil % 0.8 %; Lymphocyte % 4.9 %; Nucleated Red Blood Cells % 0.7; Polychromasia 1+
[2021-02-19 18:05] LABS: Rapid COVID-19 Molecular Undetected (Undetected)
[2021-02-19 18:06] LABS: C Reactive Protein 180.18 mg/L (<8.01); Lipase < 10 U/L (11.0-82.0)
[2021-02-19] MEDS ORDERED: NS 0.9% 1000 ml BAG 1,000 ML IV ONE (18:12)
[2021-02-19] MEDS ORDERED: Potassium Chlor 20 meq TAB.ER PO ONE (19:23)
[2021-02-19] MEDS ORDERED: Magnesium Sulfate 2 gm BAG 2 GM/50 ML BAG IVPB ONE ×2 (19:23→22:21)
[2021-02-19] MEDS ORDERED: Ondansetron 4 mg VIAL 2 MG/ML 2 ml VIAL IV ONE (19:49)
[2021-02-19] MEDS: KCL 20 MEQ/100 ML IVPREMIX 20 MEQ/100 ML BAG IV SCH ×2 (20:22→23:04)
[2021-02-19] MEDS ORDERED: Dextrose 50% Syringe 50 ml 25 GM/50 ML SYRINGE IV PUSH PRN (22:20)
[2021-02-19] MEDS ORDERED: NS 0.9% 1000 ml BAG 1,000 ML IV SCH (22:30)
[2021-02-19] MEDS: Insulin GLARGINE 100 un/ml 10 ml VIAL SUBCUT SCH (23:26)
[2021-02-20] MEDS: Heparin 5000 UNITS/ML 1 mL VIAL SUBCUT SCH ×3 (06:57→21:17)
[2021-02-20] MEDS ORDERED: RUXOLITINIB 10 MG PO SCH (09:00)
[2021-02-20] MEDS: Aspirin EC 81 mg TAB.EC (enteric coated) PO SCH (09:30)
[2021-02-20 15:00] LABS: Hematocrit 29 % (35-47); Hemoglobin 9.7 g/dL (12.0-16.0); Mean Corpuscular HGB Conc 33 g/dL (31-36); Mean Corpuscular Hemoglobin 28 pg (27-31); Mean Corpuscular Volume 84 fL (80-97); Platelet Count 220 10^3/uL (150-450); Red Blood Count 3.49 10^6 /uL (3.70-4.87); Red Cell Distribution Width 20 % (10-15); White Blood Count 13.1 10^3/uL (3.5-10.8)
[2021-02-20 15:17] LABS: Calcium 8.3 mg/dL (8.6-10.3); Potassium 3.9 mmol/L (3.5-5.0)
[2021-02-20] MEDS ORDERED: NS 0.9% 1000 ml BAG 1,000 ML IV SCH (15:45)
[2021-02-20 16:18] LABS: Hypochromasia 1+; Macrocytosis 1+; Microcytosis 2+; Polychromasia 1+
[2021-02-20 16:19] LABS: ABS Basophils 0.2 10^3/ul (0-0.2); ABS Eosinophils 0.1 10^3/ul (0-0.6); ABS Lymphocytes 0.4 10^3/ul (1.0-4.8); ABS Monocytes 0.5 10^3/ul (0-0.8); ABS Neutrophils 11.9 10^3/ul (1.5-7.7); ABS Nucleated RBC 0.1 10^3/ul; Eosinophil % 0.6 %; Lymphocyte % 3.1 %; Nucleated Red Blood Cells % 0.4
[2021-02-20] MEDS: NS 0.9% 1000 ml BAG 1,000 ML IV ONE ×2 (17:56→19:55)
[2021-02-20] MEDS ORDERED: Furosemide 40 mg/4 ml IV VIAL IV ONE (18:09)
[2021-02-20 20:28] LABS: Hematocrit 29 % (35-47); Hemoglobin 9.6 g/dL (12.0-16.0); Mean Corpuscular HGB Conc 33 g/dL (31-36); Mean Corpuscular Hemoglobin 28 pg (27-31); Mean Corpuscular Volume 85 fL (80-97); Mean Platelet Volume 10.2 fL (7.4-10.4); Platelet Count 217 10^3/uL (150-450); Red Blood Count 3.44 10^6 /uL (3.70-4.87); Red Cell Distribution Width 21 % (10-15); White Blood Count 13.8 10^3/uL (3.5-10.8)
[2021-02-20] MEDS ORDERED: PTO: Ruxolitinib 10 mg TAB (NF) PO SCH (21:00)
[2021-02-20] MEDS: Insulin GLARGINE 100 un/ml 10 ml VIAL SUBCUT SCH (21:15)
[2021-02-20] MEDS: Desipramine 50 mg TAB PO SCH (21:17)
[2021-02-20 22:06] LABS: Urine Appearance Cloudy; Urine Bilirubin Negative (Negative); Urine Blood 1+ (Negative); Urine Color Yellow; Urine Glucose 3+(>=500 mg/dL) (Negative); Urine Ketones Negative (Negative); Urine Nitrite Negative (Negative); Urine Protein 2+(100 mg/dL) (Negative); Urine Specific Gravity 1.005 (1.002-1.030); Urine Urobilinogen Negative (Negative)
[2021-02-20 22:27] LABS: Urine Bacteria Absent (Absent); Urine Red Blood Cell 1+(3-5/hpf) (Absent); Urine Squamous Epithelial Cell Present (Absent); Urine White Blood Cell 2+(11-20/hpf) (Absent)
[2021-02-20] MEDS ORDERED: Iodixanol (CONTRAST) 320 MG/ML 100 ML SDV IV ONE (22:53)
[2021-02-20 23:31] LABS: ABS Eosinophils 0.1 10^3/ul (0-0.6); ABS Lymphocytes 0.3 10^3/ul (1.0-4.8); ABS Monocytes 0.6 10^3/ul (0-0.8); ABS Neutrophils 12.7 10^3/ul (1.5-7.7); Eosinophil % 0.5 %; Lymphocyte % 2.2 %; Nucleated Red Blood Cells % 0.3
[2021-02-21] MEDS: Heparin 5000 UNITS/ML 1 mL VIAL SUBCUT SCH ×3 (05:38→21:24)
[2021-02-21] MEDS: Aspirin EC 81 mg TAB.EC (enteric coated) PO SCH (08:39)
[2021-02-21 11:16] LABS: Calcium 8.4 mg/dL (8.6-10.3); Magnesium 1.3 mg/dL (1.9-2.7); Potassium 3.9 mmol/L (3.5-5.0)
[2021-02-21] MEDS ORDERED: Magnesium Sulf 4 GM/100 ML IV 4,000 MG/100 ML BAG IVPB ONE (15:56)
[2021-02-21] MEDS ORDERED: Iodixanol (CONTRAST) 320 MG/ML 100 ML SDV IV ONE (16:34)
[2021-02-21 18:38] LABS: C Reactive Protein 201.8 mg/L (<8.01)
[2021-02-21] MEDS ORDERED: cefTRIAXone 1 gm/50 mL NS BAG 1 GM/50 ML BAG IVPB SCH (19:30)
[2021-02-21] MEDS ORDERED: Azithromycin 500 mg/250 ml NS 500 MG/250 ML BAG IVPB SCH (20:00)
[2021-02-21] MEDS ORDERED: Vancomycin per Pharmacy 1 EA NOTE FOLLOW UP SCH (20:00)
[2021-02-21] MEDS ORDERED: Levofloxacin 750 MG IVPREMIX 750 MG/150 ML BAG IVPB SCH (20:00)
[2021-02-21] MEDS ORDERED: Vancomycin 1,250 MG in NS 0.9% 250 ml 250 ML IVPB ONE (20:00)
[2021-02-21 20:44] LABS: Glucose Confirmatory 430 mg/dL (70-100)
[2021-02-21] MEDS: Desipramine 50 mg TAB PO SCH (21:23)
[2021-02-21] MEDS: Insulin GLARGINE 100 un/ml 10 ml VIAL SUBCUT SCH (21:23)
[2021-02-22] MEDS: Heparin 5000 UNITS/ML 1 mL VIAL SUBCUT SCH ×3 (05:18→21:31)
[2021-02-22 06:29] LABS: Hematocrit 26 % (35-47); Hemoglobin 8.5 g/dL (12.0-16.0); Mean Corpuscular HGB Conc 33 g/dL (31-36); Mean Corpuscular Hemoglobin 28 pg (27-31); Mean Corpuscular Volume 83 fL (80-97); Mean Platelet Volume 10.1 fL (7.4-10.4); Platelet Count 189 10^3/uL (150-450); Red Blood Count 3.11 10^6 /uL (3.70-4.87); Red Cell Distribution Width 20 % (10-15); White Blood Count 11.6 10^3/uL (3.5-10.8)
[2021-02-22 06:51] LABS: ABS Basophils 0.1 10^3/ul (0-0.2); ABS Eosinophils 0.1 10^3/ul (0-0.6); ABS Lymphocytes 0.3 10^3/ul (1.0-4.8); ABS Monocytes 0.4 10^3/ul (0-0.8); ABS Neutrophils 10.7 10^3/ul (1.5-7.7); Albumin 2.9 g/dL (3.2-5.2); Calcium 8.4 mg/dL (8.6-10.3); Eosinophil % 0.8 %; Globulin 2.9 g/dL (2-4); Lymphocyte % 2.9 %; Magnesium 2.3 mg/dL (1.9-2.7); Nucleated Red Blood Cells % 0.2; Potassium 3.8 mmol/L (3.5-5.0); Total Bilirubin 0.4 mg/dL (0.2-1.0); Total Protein 5.8 g/dL (6.4-8.9)
[2021-02-22] MEDS: Aspirin EC 81 mg TAB.EC (enteric coated) PO SCH (08:50)
[2021-02-22 11:44] LABS: Corrected Retic Count 1.6 % (0.5-1.5); Hematocrit for Retic CNT 27 % (35-47); Immature Retic Fraction 0.45; RBC Retic Count 3.17 10^6/uL (3.70-4.87)
[2021-02-22 12:35] LABS: Total Iron Binding Capacity 155 mcg/dL (250-450); Transferrin 111 mg/dL (203-362)
[2021-02-22 12:37] LABS: % Iron Saturation 13 % (15-55); Iron < 20 ug/dL (50-212); Unsaturated Iron Binding < 140 ug/dL
[2021-02-22 12:53] LABS: Ferritin 615.6 ng/mL (11-307)
[2021-02-22 13:00] LABS: Vitamin B12 353 pg/mL (180-914)
[2021-02-22] MEDS ORDERED: Furosemide 20 mg/2 ml IV VIAL IV ONE (13:53)
[2021-02-22] MEDS: methylPREDNISolone SOD 40 mg/ml 1 ml VIAL IV SCH ×2 (15:12→21:30)
[2021-02-22] MEDS: Magnesium Hydroxide LIQ 30 ML UDC PO SCH ×2 (15:16→17:39)
[2021-02-22 20:31] LABS: Glucose Confirmatory 405 mg/dL (70-100)
[2021-02-22] MEDS ORDERED: Insulin GLARGINE 100 un/ml 10 ml VIAL SUBCUT SCH (21:00)
[2021-02-22] MEDS: Desipramine 50 mg TAB PO SCH (21:30)
[2021-02-23] MEDS: methylPREDNISolone SOD 40 mg/ml 1 ml VIAL IV SCH ×3 (05:48→20:57)
[2021-02-23] MEDS: Heparin 5000 UNITS/ML 1 mL VIAL SUBCUT SCH ×3 (05:48→20:59)
[2021-02-23 06:03] LABS: Hematocrit 28 % (35-47); Mean Corpuscular HGB Conc 33 g/dL (31-36); Mean Corpuscular Hemoglobin 28 pg (27-31); Mean Corpuscular Volume 85 fL (80-97); Mean Platelet Volume 10.6 fL (7.4-10.4); Platelet Count 219 10^3/uL (150-450); Red Blood Count 3.25 10^6 /uL (3.70-4.87); Red Cell Distribution Width 20 % (10-15)
[2021-02-23 06:21] LABS: Albumin 2.9 g/dL (3.2-5.2); Albumin/Globulin Ratio 0.8 (1-3); Calcium 8.7 mg/dL (8.6-10.3); Globulin 3.5 g/dL (2-4); Magnesium 2.5 mg/dL (1.9-2.7); Potassium 4.6 mmol/L (3.5-5.0); Total Bilirubin 0.4 mg/dL (0.2-1.0); Total Protein 6.4 g/dL (6.4-8.9)
[2021-02-23 06:34] LABS: ABS Lymphocytes 0.4 10^3/ul (1.0-4.8); ABS Monocytes 0.2 10^3/ul (0-0.8); ABS Neutrophils 14.3 10^3/ul (1.5-7.7); Eosinophil % 0.1 %; Lymphocyte % 2.4 %
[2021-02-23] MEDS: Aspirin EC 81 mg TAB.EC (enteric coated) PO SCH (08:20)
[2021-02-23] MEDS ORDERED: Pneumococcal Vac 23-Polyvalent IM ONE (09:00)
[2021-02-23 10:22] LABS: TSH Ultra Thyroid Stim Horm 0.69 mcIU/mL (0.34-5.60)
[2021-02-23] MEDS ORDERED: Dextrose 50% Syringe 50 ml 25 GM/50 ML SYRINGE IV PUSH PRN ×2 (13:31→19:53)
[2021-02-23 14:27] LABS: Free T4 1.39 ng/dL (0.61-1.12)
[2021-02-23 17:57] LABS: Glucose Confirmatory 726 mg/dL (70-100)
[2021-02-23] MEDS ORDERED: NS 0.9% w/ 20 Meq KCL 1000 ml 1,000 ML IV SCH (19:00)
[2021-02-23 19:48] LABS: Glucose Confirmatory 815 mg/dL (70-100)
[2021-02-23 21:00] LABS: Venous Bicarbonate HCO3 22.2 mmol/L (24-28)
[2021-02-23] MEDS ORDERED: Levofloxacin 750 MG IVPREMIX 750 MG/150 ML BAG IVPB SCH (21:00)
[2021-02-23] MEDS ORDERED: Insulin GLARGINE 100 un/ml 10 ml VIAL SUBCUT SCH (21:00)
[2021-02-23] MEDS: Desipramine 50 mg TAB PO SCH (21:02)
[2021-02-23 21:18] LABS: Calcium 8.1 mg/dL (8.6-10.3); Potassium 4.7 mmol/L (3.5-5.0)
[2021-02-23 22:51] LABS: Glucose Confirmatory 684 mg/dL (70-100)
[2021-02-24 01:40] LABS: Glucose Confirmatory 518 mg/dL (70-100)
[2021-02-24] MEDS ORDERED: Dextrose 50% Syringe 50 ml 25 GM/50 ML SYRINGE IV PUSH PRN (02:48)
[2021-02-24] MEDS: methylPREDNISolone SOD 40 mg/ml 1 ml VIAL IV SCH (06:09)
[2021-02-24] MEDS: Heparin 5000 UNITS/ML 1 mL VIAL SUBCUT SCH (06:09)
[2021-02-24 06:33] LABS: Hematocrit 27 % (35-47); Mean Corpuscular HGB Conc 33 g/dL (31-36); Mean Corpuscular Hemoglobin 28 pg (27-31); Mean Corpuscular Volume 84 fL (80-97); Mean Platelet Volume 10.2 fL (7.4-10.4); Platelet Count 222 10^3/uL (150-450); Red Blood Count 3.26 10^6 /uL (3.70-4.87); Red Cell Distribution Width 21 % (10-15); White Blood Count 15.2 10^3/uL (3.5-10.8)
[2021-02-24 06:51] LABS: Calcium 8.4 mg/dL (8.6-10.3); Potassium 4.7 mmol/L (3.5-5.0)
[2021-02-24 07:57] LABS: ABS Lymphocytes 0.3 10^3/ul (1.0-4.8); ABS Monocytes 0.3 10^3/ul (0-0.8); ABS Neutrophils 14.6 10^3/ul (1.5-7.7); ABS Nucleated RBC 0.1 10^3/ul; Eosinophil % 0.1 %; Lymphocyte % 1.8 %; Nucleated Red Blood Cells % 0.6
[2021-02-24] MEDS: Aspirin EC 81 mg TAB.EC (enteric coated) PO SCH (08:28)
[2021-02-24 08:42] LABS: C Reactive Protein 88.29 mg/L (<8.01)
[2021-02-24 11:27] VITALS: BP 135/56
[2021-02-25 10:47] LABS: Complement C3 145 mg/dL (75 - 175)
[2021-02-25 13:19] LABS: JO-1 Antibody <0.2 U
[2021-02-25 16:32] LABS: SS-B/La Antibody <0.2 U
[2021-02-25 20:30] LABS: Cyclic Citrullinated Pept IgG <15.6 U
== END 2021-02-24 14:32 | disposition home or self-care (01) | DRG 871 ==
LOC: ED 13:03 → EDHOLD 21:57 → SUATTDRO 21:57 → MEDTELE 02-20 16:41
PROVIDERS: ADMIT Internal Medicine; ATTEND Internal Medicine

== ENCOUNTER 2022-04-20 10:38 | Observation (INO) ==
[2022-04-20] MEDS ORDERED: Lactated Ringers 1000 ml BAG 1,000 ML IV ONE (12:26)
[2022-04-20 12:43] LABS: Venous Bicarbonate HCO3 25.3 mmol/L (24-28)
[2022-04-20 12:47] LABS: Hematocrit 27 % (35-47); Mean Corpuscular HGB Conc 33 g/dL (31-36); Mean Corpuscular Hemoglobin 27 pg (27-31); Mean Corpuscular Volume 82 fL (80-97); Red Cell Distribution Width 20 % (10-15); White Blood Count 6.7 10^3/uL (3.5-10.8)
[2022-04-20 12:54] LABS: INR 1.6 (0.88-1.18)
[2022-04-20 13:17] LABS: ABS Lymphocytes 0.2 10^3/ul (1.0-4.8); ABS Monocytes 0.2 10^3/ul (0-0.8); ABS Neutrophils 6.2 10^3/ul (1.5-7.7); Eosinophil % 0.4 %; Lymphocyte % 3.5 %; Mean Platelet Volume 10.1 fL (7.4-10.4); Nucleated Red Blood Cells % 0.5; Platelet Count 138 10^3/uL (150-450); Polychromasia 1+; Tear Drop Cells 1+
[2022-04-20 13:18] LABS: Anisocytosis 1+; Platelet Morphology Large
[2022-04-20 13:39] LABS: TSH Ultra Thyroid Stim Horm 1.45 mcIU/mL (0.34-5.60)
[2022-04-20 13:47] LABS: Albumin 3.4 g/dL (3.2-5.2); Calcium 8.1 mg/dL (8.6-10.3); Magnesium 1.1 mg/dL (1.9-2.7); Potassium 3.6 mmol/L (3.5-5.0); Total Bilirubin 0.9 mg/dL (0.2-1.0)
[2022-04-20 13:53] LABS: Albumin/Globulin Ratio 1.5 (1-3); Globulin 2.2 g/dL (2-4); Total Protein 5.6 g/dL (6.4-8.9); eGFR CKD-EPI 52.8 (>60)
[2022-04-20] MEDS ORDERED: Iodixanol (CONTRAST) 320 MG/ML 100 ML SDV IV ONE (14:10)
[2022-04-20 14:44] LABS: High Sensitivity Troponin 1 Hr 8 pg/mL (<15)
[2022-04-20 15:56] LABS: Urine Appearance Cloudy; Urine Bilirubin Negative (Negative); Urine Blood Negative (Negative); Urine Color Yellow; Urine Glucose 2+(150 mg/dL) (Negative); Urine Ketones Negative (Negative); Urine Nitrite Negative (Negative); Urine Protein 1+(30 mg/dL) (Negative); Urine Specific Gravity 1.024 (1.002-1.030); Urine Urobilinogen Negative (Negative)
[2022-04-20 15:59] LABS: Urine Bacteria Absent (Absent); Urine Red Blood Cell Trace(0-2/hpf) (Absent); Urine Squamous Epithelial Cell Present (Absent); Urine White Blood Cell 3+(>20/hpf) (Absent)
[2022-04-20] MEDS ORDERED: cefTRIAXone 1 gm/50 mL D5W 1 GM/50 ML BAG IV ONE (16:16)
[2022-04-20] MEDS ORDERED: Magnesium Sulfate 2 gm BAG 2 GM/50 ML BAG IVPB ONE ×2 (16:18→16:46)
[2022-04-20] MEDS ORDERED: NS 0.9% 1000 ml BAG 1,000 ML IV SCH (17:00)
[2022-04-20 17:34] LABS: Ferritin 611.3 ng/mL (11-307)
[2022-04-20 17:37] LABS: Folate 19.24 ng/mL (5.90-24.80)
[2022-04-20] MEDS ORDERED: Insulin GLARGINE 100 un/ml 10 ml VIAL SUBCUT SCH (21:00)
[2022-04-20] MEDS ORDERED: Desipramine 50 mg TAB PO SCH (21:00)
[2022-04-21 06:22] LABS: Hematocrit 24 % (35-47); Hemoglobin 7.7 g/dL (12.0-16.0); Mean Corpuscular HGB Conc 33 g/dL (31-36); Mean Corpuscular Hemoglobin 27 pg (27-31); Mean Corpuscular Volume 82 fL (80-97); Red Blood Count 2.88 10^6 /uL (3.70-4.87); Red Cell Distribution Width 20 % (10-15); White Blood Count 4.8 10^3/uL (3.5-10.8)
[2022-04-21 06:31] LABS: Calcium 7.6 mg/dL (8.6-10.3); Potassium 3.4 mmol/L (3.5-5.0)
[2022-04-21 06:36] LABS: eGFR CKD-EPI 61.7 (>60)
[2022-04-21 08:03] LABS: Mean Platelet Volume 10.1 fL (7.4-10.4); Platelet Count 129 10^3/uL (150-450)
[2022-04-21 08:07] VITALS: BP 122/75
[2022-04-21] MEDS ORDERED: Potassium EFFERVES 25 meq TAB PO ONE (09:00)
[2022-04-21] MEDS ORDERED: Aspirin EC 81 mg TAB.EC (enteric coated) PO SCH (09:00)
[2022-04-21] MEDS ORDERED: DILTIAZEM HCL 300 MG PO SCH (09:00)
[2022-04-21] MEDS ORDERED: Nystatin TOP POWDER 15 GM BTL TOPICAL SCH (09:00)
[2022-04-21 09:28] LABS: Direct Bilirubin 0.1 mg/dL (0.03-0.18); Indirect Bilirubin 0.4 mg/dL (0.3-1.0); Total Bilirubin 0.5 mg/dL (0.2-1.0)
[2022-04-21 09:33] LABS: Albumin/Globulin Ratio 1.7 (1-3); Globulin 1.8 g/dL (2-4); Total Protein 4.8 g/dL (6.4-8.9)
[2022-04-21] MEDS ORDERED: cefTRIAXone 1 gm/50 mL D5W 1 GM/50 ML BAG IV SCH (16:00)
== END 2022-04-21 12:50 | disposition home or self-care (01) ==
LOC: ED 10:38 → EDHOLD 10:38 → SUATTDRO 16:46 → MED 19:53
PROVIDERS: ADMIT Hospitalist; ATTEND Internal Medicine